=== PATIENT | female | born 1950 | race Caucasian/White ===

== ENCOUNTER 2020-05-08 13:41 | Emergency (ER) | payer OTHER, SELFPAY ==
[2020-05-08 13:47] VITALS: BP 123/70; PULSE 84; RESP 16; TEMP 36.9
--- NOTE | 2020-05-08 14:13 | ED.GENADUL_ITS ---
Discharge Plan Disposition Patient Disposition: HOME Condition: Stable Discharge Details Chief Complaint: Abd Prob Clinical Impression: Diverticulitis Primary Care Provider: Tucker Hurtado ED Provider: Zia Cummings Home Meds and New Rx's Prescriptions: New metronidazole [Flagyl] 500 mg tablet 500 mg PO QID 10 Days Qty: 40 RF: 0 sulfamethoxazole-trimethoprim [Bactrim DS] 800-160 mg tablet 1 tab PO BID 10 Days Qty: 20 RF: 0 Continued acyclovir 200 mg capsule 400 mg PO TID PRNRF: 0 vitamin B complex [B Complex-Vitamin B12] Tablet 1 tab PO DAILY RF: 0 garlic Tablet 300 mg PO DAILY RF: 0 ascorbate calcium (vitamin C) 500 mg tablet 500 mg PO DAILY RF: 0 cholecalciferol (vitamin D3) 50 mcg (2,000 unit) capsule 50 mcg PO DAILY RF: 0 Ultra CoQ10 75 mg capsule 75 mg PO DAILY RF: 0 methylprednisolone 4 mg Tablets,Dose Pack 4 mg PO DIRECTED RF: 0 ibuprofen [Advil] 200 mg Tablet 400 mg PO BID RF: 0 Discharge Instructions Instructions: Diverticulitis (ED) Additional Instructions: Bactrim and Flagyl as directed. Clear liquid diet, advance as tolerated. Please watch for new or worsening symptoms and return to the ER for any concerns. You were unable to provide a stool sample here in the ER, in order to have your stool still tested, you will need to bring a sample to the lab instead. I do recommend that you contact your primary care provider tomorrow for prompt outpatient reevaluation. Discharge Data Discharge Date/Time-TO BE ENTERED AT DEPARTURE: 05/08/20 18:00 Medical Decision Making <Yu Blas - Last Filed: 05/09/20 08:47> 69-year-old female presents to the ER with 2 days of increased mucousy stool production associated with fevers and dizziness. Patient states she has up to 15 bowel movements a day which she noticed greenish and mucousy. T-max is reported fever of 100.8. She has intermittent lower abdominal pain none on initial exam. She denies any vomiting, dysuria or urinary frequency. She has a past medical history of hyperlipidemia, osteoarthritis, surgical history includes appendectomy, cholecystectomy and . At this time work-up is largely within normal limits CBC shows no leukocytosis, sodium is 140, potassium is 3.5, initial troponin is within normal limits second troponin canceled. Lipase is 151. Culture is not indicated at this time. Stool samples ordered which patient has not provided as of yet. CT abdomen pelvis with IV contrast only ordered and is pending at this time. Care is to be handed off to oncoming provider CONNOR Mart pending CT abdomen pelvis results. If stool was not collected here in department we can send patient home with some outpatient stool collection items. Differential diagnosis includes, but not limited to bacterial infection, gastroenteritis, UTI, Diverticulitis. <CONNOR Muir - Last Filed: 05/08/20 17:00> I assumed care of this 69-year-old female from my colleague ELLY Blas at shift change. Patient has had lower abdominal pain, crampy in nature associated with green mucousy stools and low-grade fever over the past couple of days. Work-up initiated and currently CT imaging and stool sample pending. Upon my evaluation she is resting comfortably. She appears well, nontoxic. Head normocephalic. Heart, regular rate and rhythm. Lungs clear to auscultation. Abdominal examination, soft without rigidity, rebound or guarding. Bowel sounds are equal throughout. Mild lower abdominal diffuse discomfort, slightly worse in the left lower quadrant. Certainly nonsurgical in nature. Discussed her work-up thus far and our plan to obtain stool sample and awaiting CT results. Patient has no additional questions or concerns at this time. Patient still unable to provide stool sample. CT imaging read by virtual radiology as suspected colitis however diverticulosis of the sigmoid colon cannot be excluded. Clinical correlation is recommended. Given her loose green mucousy stool, low-grade fever, diffuse lower abdominal discomfort, slightly worse in the left lower quadrant, I do believe treating her for diverticulitis is certainly reasonable. Given her allergy to Cipro, will initiate therapy with Flagyl and Bactrim. Patient was unable to provide stool sample prior to discharge. She will be provided a kit to go home with to bring back to the lab however now with a diagnosis of colitis-diverticulitis on CT, stool sample likely less helpful. Patient has no additional questions or concerns at this time. We discussed clear liquid diet, advancing as tolerated, and the importance of contacting her primary care provider for prompt outpatient reevaluation. She was encouraged to return to the ER for new or worsening symptoms. HPI <Yu Blas - Last Filed: 05/09/20 08:47> General Mode of arrival: ambulatory . Date/Time Provider Initiated Documentation: 05/08/20 13:53 . Limitations to Documentation: no limitations . Information obtained by: patient . HPI Narrative: 69-year-old female presents to the ER with 2 days of increased mucousy stool production associated with fevers and dizziness. Patient states she has up to 15 bowel movements a day which she noticed greenish and mucousy. T-max is reported fever of 100.8. She has intermittent lower abdominal pain none on initial exam. She denies any vomiting, dysuria or urinary frequency. She has a past medical history of hyperlipidemia, osteoarthritis, surgical history includes appendectomy, cholecystectomy and . Related Data Home Medications Medication Instructions Recorded Confirmed acyclovir 200 mg capsule 400 mg PO TID PRN 02/26/20 05/08/20 ascorbate calcium (vitamin C) 500 500 mg PO DAILY 02/26/20 05/08/20 mg tablet cholecalciferol (vitamin D3) 50 50 mcg PO DAILY 02/26/20 05/08/20 mcg (2,000 unit) capsule coenzyme Q10 75 mg capsule 75 mg PO DAILY 02/26/20 05/08/20 garlic 300 mg PO DAILY 02/26/20 05/08/20 vitamin B complex 1 tab PO DAILY 02/26/20 05/08/20 ibuprofen [Advil] 400 mg PO BID 05/08/20 05/08/20 methylprednisolone 4 mg PO DIRECTED 05/08/20 05/08/20 metronidazole [Flagyl] 500 mg PO QID 10 Days #40 tab 05/08/20 sulfamethoxazole-trimethoprim 1 tab PO BID 10 Days #20 tab 05/08/20 [Bactrim DS] Previous Rx's Medication Instructions Recorded metronidazole [Flagyl] 500 mg PO QID 10 Days #40 tab 05/08/20 sulfamethoxazole-trimethoprim 1 tab PO BID 10 Days #20 tab 05/08/20 [Bactrim DS] Allergies Allergy/AdvReac Type Severity Reaction Status Date / Time ciprofloxacin [From Cipro] Allergy Intermediate vomiting Verified 05/08/20 13:54 bug bites AdvReac Intermediate swelling Uncoded 05/08/20 13:54 General Stated Complaint: Abd Prob ARELY: 3 Review of Systems <Yu Blas - Last Filed: 05/09/20 08:47> Narrative: Constitutional: Negative for weight loss, alert and oriented, well groomed, normal body habitus, appears comfortable. Positive fatigue. HEENT: Denies trauma, headaches, blurry vision, nasal discharge, sore throat, trouble swallowing. Chest: Denies chest pain, palpitations, irregular rhythm, hypertension. Respiratory: Denies Shortness of breath, cough, hemoptysis. GI: Denies , vomiting, diarrhea, constipation. Positive lower left and right lower quadrant abdominal pain intermittent, associated with increased bowel movements which she reports is mucousy and greenish. : Denies dysuria, hematuria, flank pain, rectal bleeding. Neuro: Denies dizziness, blurry vision, weakness, syncope, headache or facial numbness. Hematologic: Denies easy bruising, intolerance to heat or cold, hair loss. PFSH <Yu Blas - Last Filed: 05/09/20 08:47> Medical History Benign paroxysmal positional vertigo (Acute) Hyperlipidemia (Acute) Osteoarthritis (Chronic) Other cervical disc degeneration, unspecified cervical region (Acute) Prediabetes (Acute) Vitamin D deficiency (Acute) Surgical History History of appendectomy (Chronic) History of delivery (Chronic) History of knee surgery (Acute) History of laparoscopic cholecystectomy (Acute) Family History Mother Heart disease Father Prostate cancer Social History Smoking/Tobacco Use Status: Never Alcohol Intake: current Alcohol Intake frequency: 0-2 drinks per day Alcohol type: wine Drug use: Never Household members: spouse Number of Children: 1 number of grandchildren: 2 Communication Needs: Language Barriers current occupation: Retired from [employer] Pets and animals: No Current gender identity: female What is your relationship status?: How often do you attend tenriism or orthodoxy services?: 4 or more times per year Do you belong to any clubs or organized social groups?: no Panel score (0-1 are the most socially isolated patients): 2 What type of physical activity do you participate in: none Seatbelt use: always Do you feel safe at home: Yes Do you feel safe in your relationship?: Yes Victim of physical abuse: No Victim of emotional abuse: No Victim of sexual abuse: No Exam <Yu Puri Last Filed: 05/09/20 08:47> Narrative Exam Narrative: Constitutional: Alert and oriented x3. Appears stated age. Normal body habitus. Head: Normocephalic, no trauma. Eyes: Pupils PERRLA, Red reflex noted, EOM's intact. Eyelids symmetrical without lesions, discharge, or swelling. ENT: Bilateral TM's WNL, External ear normal to inspection, no mastoid TTP, swelling, or erythema, Nasal turbinates WNL, no nasal discharge. Normal dentition, Posterior pharynx WNL, no exudate. Chest: RRR, Normal S1, S2, distal pulses intact. Resp: Lungs clear to auscultation bilaterally, no wheezes, rales, or rhonchi. Abdomen: Soft, normoactive bowel sounds auscultated, right lower quadrant left lower quadrant tenderness to palpation. No guarding. Musculoskeletal: Normal gait, 5/5 strength to all four extremities. Skin: No suspicious rashes or lesions. Capillary refill less than 2 sec. Neurologic: Cranial nerves II-XII intact. Alert and oriented x 3. DTR's intact. Hematologic/Lymphatic: No ecchymosis, no lymphadenopathy. Course <Yu Blas - Last Filed: 05/09/20 08:47> Vital Signs Vital signs: Vital Signs Temperature 36.9 C 05/08/20 13:47 Pulse 84 05/08/20 13:47 Respiratory Rate 16 05/08/20 13:47 Blood Pressure 123/70 05/08/20 13:47 Temperature 36.9 C 05/08/20 13:47 Temperature Source Skin 05/08/20 13:47 Pulse 84 05/08/20 13:47 Respiratory Rate 16 05/08/20 13:47 Respiratory Effort 05/08/20 13:58 Blood Pressure 123/70 05/08/20 13:47 Blood Pressure Position Sitting 05/08/20 13:47 Oxygen Delivery Method Room Air 05/08/20 13:47 Oxygen Flow Rate 0 05/08/20 13:47 Pain Level 5 05/08/20 13:47 Comment 05/08/20 13:47 Sign Out <Yu Blas - Last Filed: 05/09/20 08:47> Sign Out Data: Sign Out Comment: Pending CT abd pelvis result and stool culture collection. May send stool collection kit with patient as outpatient Last updated by Yu Blas at 05/08/20 16:16
[2020-05-08 14:18] LABS: Bilirubin Negative (Negative); Blood Negative (Negative); Clarity Clear (Clear); Glucose Negative (Negative); Ketones Negative (Negative); Leukocyte Esterase Negative (Negative); Nitrite Negative (Negative); Specific Gravity >= 1.030 (1.005-1.025); Urobilinogen 0.2 EU/dL (Up TO 0.2)
[2020-05-08 14:26] LABS: Epithelial Cells Moderate HPF (Negative); RBC Negative HPF (0-2); WBC 0-2 HPF (0-5)
[2020-05-08 14:27] LABS: Bacteria Negative HPF (Negative); C & S Indicated? No; Casts Negative LPF (Negative); Crystals Negative HPF (Negative); Mucus Trace (Negative)
[2020-05-08 14:38] LABS: Abs Immature Grans 0.05 10^3/uL (0.0-0.06); Absolute Basophil Count 0.03 10^3/uL (0.0-0.2); Absolute Eosinophil Count 0.12 10^3/uL (0.0-0.7); Absolute Lymphocyte Count 1.31 10^3/uL (1.2-3.4); Absolute Monocyte Count 1.03 10^3/uL (0.1-0.8); Absolute Neutrophil Count 7.98 10^3/uL (1.2-6.7); Basophils % 0.3; Eosinophils % 1.1; HCT 42.3 % (36.0-46.0); Immature Grans % 0.5; Lymphocytes % 12.5; MCH 29.9 pg (27.0-33.0); MCHC 33.1 % (32.0-36.0); MCV 90.4 fL (80-95); MPV 9.7 fL (8.0-11.0); Monocytes % 9.8; Neutrophils % 75.8; Nucleated RBC 0 %; Platelet Count 326 10^3/uL (130-400); RBC 4.68 10^6/uL (3.93-5.22); RDW 12.8 % (11.7-14.6); RDW-SD 41.8 fL; WBC 10.52 10^3/uL (4.4-10.8)
[2020-05-08] MEDS: Normal Saline Flush 10 ML SYR IVP (14:40)
[2020-05-08] MEDS: Normal Saline 500 ML IV (14:40)
[2020-05-08 14:59] LABS: ALT 38 U/L (14-59); AST 17 U/L (15-37); Alkaline Phosphatase 96 U/L (46-116); Anion Gap 11.3 mmol/L (3-11); BUN 13 mg/dL (7-18); Bilirubin, Total 0.8 mg/dL (0.2-1.0); CO2 24.7 mmol/L (21.0-32.0); CREATININE 0.88 mg/dL (0.55-1.02); Calcium 9.5 mg/dL (8.5-10.1); Chloride 104 mmol/L (98-107); Glucose 107 mg/dL (74-106); Magnesium 2.1 mg/dL (1.8-2.4); Potassium 3.5 mmol/L (3.5-5.1); Sodium 140 mmol/L (136-145); Total Protein 8.1 g/dL (6.4-8.2)
[2020-05-08 15:00] LABS: Troponin I < 0.05 ng/mL (<0.06)
--- NOTE | 2020-05-08 15:00 | DI.CT_ITS ---
EXAM: CT ABDOMEN PELVIS W CLINICAL HISTORY: Bilateral lower abdominal pain, fever TECHNIQUE: Imaging Protocol: Axial computed tomography images with coronal and sagittal reformatted images were created and reviewed CONTRAST MATERIAL: Intravenous: Omnipaque 350 Contrast volume:100 mL Oral: No COMPARISON: No exams were available for comparison FINDINGS: ABDOMEN: Lung Bases: Mild dependent atelectasis. Calcified granuloma in the right lower lobe. Liver: The dome of the liver is not included. The liver is unremarkable. No measurable mass. Portal, Superior Mesenteric, and Splenic Veins: Unremarkable. Gallbladder and Biliary Tract: Status post cholecystectomy. No significant biliary ductal dilatation . Pancreas: Normal density, no abnormal calcifications or inflammatory process. Spleen: Normal. Adrenals: No masses seen. Kidneys: Normal size, contour and axis. No radiodense stones or obstructive uropathy. No masses seen. Abdominal Aorta: Abdominal portion non-dilated. Bowel: There is colonic diverticulosis. There is bowel wall thickening seen in the distal transverse colon, sigmoid colon and descending colon. There is surrounding inflammation in the sigmoid colon. Findings are suspicious for colitis. Concomitant diverticulitis cannot be excluded. No evidence of bowel obstruction. No evidence of acute appendicitis. Peritoneal Cavity: No ascites, collection or mesenteric inflammatory response. No free air. Lymph Nodes: Within normal limits. Bones: Degenerative changes. Soft Tissues: Unremarkable. PELVIS: Bladder: Symmetric distention, no gross wall thickening. Reproductive Organs: Unremarkable as visualized. Lymph Nodes: Within normal limits. Bones: Degenerative changes. IMPRESSION: Findings suspicious for inflammatory or infectious colitis. Concomitant diverticulitis of the sigmoi d colon cannot be excluded. RADIATION DOSE DELIVERED: 664.38mGy.cm Total DLP DATA REPOSITORY: All CT scans at this facility are submitted to the National Radiology Data Registry (NRDR) Dose Index Registry (DIR) with the [employer] (ACR). RADIATION OPTIMIZATION: All CT scans at this facility use at least one of these dose optimization te chniques: automated exposure control; mA and/or kV adjustment per patient size (includes targeted exa ms where dose is matched to clinical indication); or iterative reconstruction.
[2020-05-08 15:07] LABS: Lipase 151 U/L (73-393)
[2020-05-08 15:09] VITALS: BP 113/70; PULSE 76; RESP 18; O2SAT 98
[2020-05-08] MEDS: Normal Saline - Diluent 50 ML VIAL IV (15:50)
[2020-05-08] MEDS: Omnipaque 350 MG/ML 100 ML BTL IJ (15:51)
--- NOTE | 2020-05-08 16:28 | DI.VRAD_ITS ---
PROCEDURE INFORMATION: Exam: CT Abdomen And Pelvis With Contrast Exam date and time: 05/08/2020 3:56 PM Age: 69 years old Clinical indication: Localized; Prior surgery; Surgery date: 6+ months; Surgery type: Appendectomy and gallbladder removed years ago. ; Patient HX: Lower abdominal pain x3 days. Worsening pain. TECHNIQUE: Imaging protocol: Computed tomography of the abdomen and pelvis with intravenous contrast. Radiation optimization: All CT scans at this facility use at least one of these dose optimization techniques: automated exposure control; mA and/or kV adjustment per patient size (includes targeted exams where dose is matched to clinical indication); or iterative reconstruction. Contrast material: OMNIPAQUE 350; Contrast volume: 100 ml; Contrast route: INTRAVENOUS (IV); COMPARISON: No relevant prior studies available. FINDINGS: Lungs: There are dependent atelectatic changes within the visualized lung bases. There is a small calcified granuloma within the right lower lobe. Heart: The visualized portions the heart and pericardium are unremarkable. Liver: The visualized portions of the liver appear unremarkable. Gallbladder and bile ducts: The patient is status post cholecystectomy. Pancreas: The pancreas is within normal limits. Spleen: The spleen is unremarkable. Adrenals: The adrenal glands are within normal limits. Kidneys and ureters: The kidneys are within normal limits. Stomach and bowel: There is mucosal thickening of the descending and sigmoid colons. This extends to the rectum. This is suspicious for colitis. There is slight pericolonic inflammation the mesenteric fat.Clinical correlation is recommended. There are diverticuli at the level of the sigmoid colon. Sigmoid diverticulitis is not totally excluded. Appendix: The patient is status post appendectomy. Intraperitoneal space: See Stomach and bowel finding. Vasculature: Unremarkable. No abdominal aortic aneurysm. Lymph nodes: No enlarged lymph nodes. Bladder: The urinary bladder is unremarkable. Reproductive: The uterus and ovaries are within normal limits for patient of this age. The Bones/joints: There are degenerative changes of the thoracic and lumbar spines. There is degenerative disc disease at multiple levels. Soft tissues: Unremarkable. IMPRESSION: Suspect colitis as above. Concomitant diverticulitis of the sigmoid colon is not excluded. Clinical correlation is recommended. Osseous findings as above. Status post cholecystectomy. Old granulomatous disease as above. Status post appendectomy. Dictated and Authenticated by: Yogesh Michelle MD. Ordering:KENNETH Nicholas MD
[2020-05-08 17:59] VITALS: BP 111/59; PULSE 74; RESP 16; TEMP 36.9; O2SAT 99
== END 2020-05-08 18:00 | disposition home or self-care (01) ==
PROVIDERS: Registered Nurse Emergency; Emergency Provider Physician Assistant; PCP Family Medicine
DX: K57.92 Diverticulitis of intestine, part unspecified, without perforation or abscess without bleeding (principal); R50.9 Fever, unspecified; R42 Dizziness and giddiness
CPT/HCPCS: 36415; 80053; 83690; 87040; 96360; 99285; 74177; 81003; 81015; 83735; 84484; 85025; 99284; J3490

== ENCOUNTER 2020-05-10 09:55 | Outpatient (REF) | payer OTHER, SELFPAY ==
[2020-05-11 11:31] LABS: Campylobacter PCR Negative (Negative); Salmonella PCR Negative (Negative); Shiga Toxin PCR Negative (Negative); Shigella/Enteroinvasive Ecoli Negative (Negative)
== END 2020-05-10 10:15 ==
LOC: LBN 09:55
PROVIDERS: PCP Family Medicine; Visit Provider Physician Assistant
DX: K57.32 Diverticulitis of large intestine without perforation or abscess without bleeding (principal)
CPT/HCPCS: 87505; 82272

== ENCOUNTER 2020-05-25 23:55 | Observation (INO) | payer OTHER, SELFPAY ==
[2020-05-26] VITALS (8 sets, daily range): BP systolic 104–122; BP diastolic 62–69; PULSE 78–108; RESP 14–18; TEMP 36.3–38.2; O2SAT 96–100
--- NOTE | 2020-05-26 00:07 | ED.GENADUL_ITS ---
Discharge Plan Disposition Patient Disposition: [facility] INPATIENT Condition: Fair Discharge Details Chief Complaint: Abd Prob Clinical Impression: Colitis Primary Care Provider: Tucker Hurtado ED Provider: Papa Reno [place] Meds and New Rx's Prescriptions: No Action vitamin B complex [B Complex-Vitamin B12] Tablet 1 tab PO DAILY RF: 0 garlic Tablet 300 mg PO DAILY RF: 0 ascorbate calcium (vitamin C) 500 mg tablet 500 mg PO DAILY RF: 0 cholecalciferol (vitamin D3) 50 mcg (2,000 unit) capsule 50 mcg PO DAILY RF: 0 Ultra CoQ10 75 mg capsule 75 mg PO DAILY RF: 0 ondansetron HCl [Zofran] 4 mg tablet 4 mg PO Q6H PRN (Reason: nausea and vomiting) Qty: 30 RF: 0 Medical Decision Making Patient with recurrent and worse abdominal pain. Had finished Flagyl and Ba ctrim for diverticulitis. Symptoms had resolved. Denies liquidy stool but does have soft stool, not formed. Febrile today as well as febrile here. Does not look toxic. IV established and fluids started. Ketorolac given for pain. Labs sent. Repeat CT scan ordered. Lab values significant for markedly elevated white count of 20,000. Chemistries with hypokalemia. Otherwise unremarkable. Liver function normal. Lipase normal. CT scan now shows diffuse colitis involving entire colon. Patient does report less pain but still has pain. On further questioning she reports that previous symptoms started after finishing antibiotics for root canal. At this point I would suspect C. difficile colitis. Will send stool for studies when she is able to provide one. Given her white count and her worsening CT scan as well as her fever recommend admission. Case discussed with hospitalist who is in agreement. Oral vancomycin will be started. Medical Records Medical records reviewed: Yes I reviewed the patient's medical records. Lab Data Lab results reviewed: Yes I reviewed the patient's lab results. HPI General Mode of arrival: ambulatory . Date/Time Provider Initiated Documentation: 05/25/20 23:57 . Limitations to Documentation: no limitations . Information obtained by: patient, RN notes reviewed and old records reviewed . HPI Narrative: Patient presents to ED with recurrent lower abdominal pain onset in the morning. Worsening over the course of the day. Fever at home. No nausea or vomiting. Soft stool but denied liquidy diarrhea. Had been here on the with similar presentation although not as severe. CT scan at that time suggestive of distal colitis/sigmoid diverticulitis. She has been treated with Flagyl and Bactrim as outpatient. She was seen by primary care and follow-up on the . She was doing better with no pain until today. The antibiotics are complete. Related Data Home Medications Medication Instructions Recorded Confirmed ascorbate calcium (vitamin C) 500 500 mg PO DAILY 02/26/20 05/14/20 mg tablet cholecalciferol (vitamin D3) 50 50 mcg PO DAILY 02/26/20 05/14/20 mcg (2,000 unit) capsule coenzyme Q10 75 mg capsule 75 mg PO DAILY 02/26/20 05/14/20 garlic 300 mg PO DAILY 02/26/20 05/14/20 vitamin B complex 1 tab PO DAILY 02/26/20 05/14/20 ondansetron HCl 4 mg tablet 4 mg PO Q6H PRN #30 tab 05/14/20 05/14/20 Previous Rx's Medication Instructions Recorded ondansetron HCl 4 mg tablet 4 mg PO Q6H PRN #30 tab 05/14/20 Allergies Allergy/AdvReac Type Severity Reaction Status Date / Time ciprofloxacin [From Cipro] Allergy Intermediate vomiting Verified 05/08/20 13:54 bug bites AdvReac Intermediate swelling Uncoded 05/08/20 13:54 General ARELY: 3 Review of Systems Narrative: 07/10 Review of Systems completed and is negative except as stated above in HPI (Systems reviewed: Const, Eyes, ENT, Resp, CV, GI, , MSK, Skin, Neuro) PFSH Medical History Benign paroxysmal positional vertigo (Acute) Hyperlipidemia (Acute) Osteoarthritis (Chronic) Other cervical disc degeneration, unspecified cervical region (Acute) Prediabetes (Acute) Vitamin D deficiency (Acute) Surgical History History of appendectomy (Chronic) History of delivery (Chronic) History of knee surgery (Acute) History of laparoscopic cholecystectomy (Acute) Family History Mother Heart disease Father Prostate cancer Social History Smoking/Tobacco Use Status: Never Alcohol Intake: current Alcohol Intake frequency: 0-2 drinks per day Alcohol type: wine Drug use: Never Household members: spouse Number of Children: 1 number of grandchildren: 2 Communication Needs: Language Barriers current occupation: Retired from [employer] Pets and animals: No Current gender identity: female What is your relationship status?: How often do you attend scientologist or latter day services?: 4 or more times per year Do you belong to any clubs or organized social groups?: no Panel score (0-1 are the most socially isolated patients): 2 What type of physical activity do you participate in: none Seatbelt use: always Do you feel safe at home: Yes Do you feel safe in your relationship?: Yes Victim of physical abuse: No Victim of emotional abuse: No Victim of sexual abuse: No Exam Narrative Exam Narrative: Vitals: Febrile to 100.8 orally. Mild tachycardia. Normal blood pressure and room air pulse ox. Const: WDWN female in NAD. HEENT: NC/AT. Normal facial exam. Eyes: Normal conjunctiva and sclera. Neck: Supple. Trachea midline. Lungs: Normal respiratory effort. Lungs are clear. Cor: RRR without murmur/gallop. Good radial pulses. GI: Soft and ND. Some tenderness in LLQ. No guarding or rebound. Neuro: A+O x 3. Normal speech, mentation, gait. Cranial nerves II - XII grossly intact. No gross motor or sensory deficit. Ext: No C/C/E. Skin: Warm and dry without rash.
--- NOTE | 2020-05-26 00:15 | DI.CT_ITS ---
EXAM: CT ABDOMEN PELVIS W CLINICAL HISTORY: recurrent worse LLQ pain TECHNIQUE: Imaging Protocol: Axial computed tomography images with coronal and sagittal reformatted images were created and reviewed CONTRAST MATERIAL: Intravenous: Omnipaque 350 Contrast volume:77 mL Oral: No COMPARISON: CT CT ABDOMEN PELVIS W from 05/08/2020 FINDINGS: ABDOMEN: Lung Bases: Dependent atelectasis. Calcified granuloma in the right lower lobe. Liver: Normal density. No measurable mass. Portal, Superior Mesenteric, and Splenic Veins: Unremarkable. Gallbladder and Biliary Tract: Status post cholecystectomy. Pancreas: Normal density, no abnormal calcifications or inflammatory process. Spleen: Normal. Adrenals: No masses seen. Kidneys: Normal size, contour and axis. No radiodense stones or obstructive uropathy. No masses seen. Abdominal Aorta: Abdominal portion non-dilated. Bowel: There is diffuse wall thickening of the colon with areas of surrounding inflammatory change.. There are few scattered diverticula in the sigmoid colon. No evidence of acute appendicitis. No ev idence of bowel obstruction. Peritoneal Cavity: No ascites, collection or mesenteric inflammatory response. Lymph Nodes: Within normal limits. Bones: Degenerative changes. Soft Tissues: Unremarkable. PELVIS: Bladder: Symmetric distention, no gross wall thickening. Reproductive Organs: Unremarkable as visualized. Lymph Nodes: Within normal limits. Bones: Degenerative changes. IMPRESSION: Nonspecific colitis. No free air or abscess. No evidence of obstruction. RADIATION DOSE DELIVERED: 644.2mGy.cm Total DLP DATA REPOSITORY: All CT scans at this facility are submitted to the National Radiology Data Registry (NRDR) Dose Index Registry (DIR) with the [employer] (ACR). RADIATION OPTIMIZATION: All CT scans at this facility use at least one of these dose optimization te chniques: automated exposure control; mA and/or kV adjustment per patient size (includes targeted exa ms where dose is matched to clinical indication); or iterative reconstruction.
[2020-05-26] MEDS: Lactated Ringers 1,000 ML 1000 ML IV (00:30)
[2020-05-26] MEDS: Ketorolac 15 MG/ML VIAL IVP (00:35)
[2020-05-26 00:38] LABS: Abs Immature Grans 0.13 10^3/uL (0.0-0.06); Absolute Basophil Count 0.04 10^3/uL (0.0-0.2); Absolute Eosinophil Count 0.02 10^3/uL (0.0-0.7); Absolute Lymphocyte Count 0.64 10^3/uL (1.2-3.4); Absolute Neutrophil Count 17.82 10^3/uL (1.2-6.7); Basophils % 0.2; Eosinophils % 0.1; HCT 40.7 % (36.0-46.0); HGB 13.7 g/dL (11.2-15.7); Immature Grans % 0.6; Lymphocytes % 3.2; MCH 30.1 pg (27.0-33.0); MCHC 33.7 % (32.0-36.0); MCV 89.5 fL (80-95); MPV 9.7 fL (8.0-11.0); Monocytes % 7.3; Neutrophils % 88.6; Nucleated RBC 0 %; Platelet Count 295 10^3/uL (130-400); RBC 4.55 10^6/uL (3.93-5.22); RDW 13.1 % (11.7-14.6); RDW-SD 42.7 fL; WBC 20.11 10^3/uL (4.4-10.8)
[2020-05-26 00:42] LABS: Absolute Monocyte Count 1.47 10^3/uL (0.1-0.8)
[2020-05-26 00:56] LABS: ALT 40 U/L (14-59); AST 17 U/L (15-37); Albumin 3.4 g/dL (3.4-5.0); Alkaline Phosphatase 67 U/L (46-116); Anion Gap 12.5 mmol/L (3-11); BUN 9 mg/dL (7-18); Bilirubin, Total 0.9 mg/dL (0.2-1.0); CO2 24.5 mmol/L (21.0-32.0); CREATININE 1.09 mg/dL (0.55-1.02); Calcium 8.7 mg/dL (8.5-10.1); Chloride 102 mmol/L (98-107); Estimated GFR 49.48 (mL/min/1.73m2); Glucose 149 mg/dL (74-106); Lipase 88 U/L (73-393); Potassium 3.3 mmol/L (3.5-5.1); Sodium 139 mmol/L (136-145); Total Protein 6.9 g/dL (6.4-8.2)
[2020-05-26 01:59] LABS: Bilirubin Negative (Negative); Blood Trace-intact (Negative); Clarity Clear (Clear); Glucose Negative (Negative); Ketones Negative (Negative); Leukocyte Esterase Negative (Negative); Nitrite Negative (Negative); Urobilinogen 0.2 EU/dL (Up TO 0.2); pH 6.5 (5-8)
--- NOTE | 2020-05-26 02:06 | DI.VRAD_ITS ---
PROCEDURE INFORMATION: Exam: CT Abdomen And Pelvis With Contrast Exam date and time: 05/26/2020 12:27 AM Age: 69 years old Clinical indication: Abdominal pain; Localized; Left lower quadrant (llq); Patient HX: Recurrent worse llq pain TECHNIQUE: Imaging protocol: Computed tomography of the abdomen and pelvis with intravenous contrast. COMPARISON: CT ABDOMEN PELVIS W 05/08/2020 3:44 PM FINDINGS: Lungs: Subpleural atelectasis of the dependent portions of the lungs. Pulmonary parenchymal calcification consistent with remote granulomatous organism exposure. Liver: Diffuse decrease in hepatic parenchymal density, consistent with fatty infiltration. Gallbladder and bile ducts: Gallbladder surgically absent. Pancreas: Normal. No ductal dilation. Spleen: Normal. No splenomegaly. Adrenals: Normal. No mass. Kidneys and ureters: Normal. No hydronephrosis. Stomach and bowel: Wall thickening with surrounding inflammatory change throughout the colon consistent with a nonspecific colitis, overall slightly worse. Colonic diverticula present. No evidence of intestinal perforation or obstruction. Appendix: No evidence of appendicitis. Intraperitoneal space: Unremarkable. No free air. No significant fluid collection. Vasculature: Unremarkable. No abdominal aortic aneurysm. Lymph nodes: Unremarkable. No enlarged lymph nodes. Bladder: Unremarkable as visualized. Reproductive: Unremarkable as visualized. Bones/joints: Unremarkable. No acute fracture. Soft tissues: Unremarkable. IMPRESSION: Wall thickening with surrounding inflammatory change throughout the colon consistent with a nonspecific colitis, overall slightly worse. Dictated and Authenticated by: Otf Castillo MD. Ordering:JORDIN Elam MD
[2020-05-26 02:21] LABS: Bacteria Rare HPF (Negative); C & S Indicated? No; Casts Negative LPF (Negative); Crystals Negative HPF (Negative); Epithelial Cells Negative HPF (Negative); Mucus Negative (Negative); WBC Negative HPF (0-5)
[2020-05-26] MEDS: Lactated Ringers 1,000 ML 125 ML IV ×3 (03:06→19:45)
--- NOTE | 2020-05-26 03:07 | W.PM.HP.N ---
Date of service: 05/26/20 Time of Service: 07:23 Assessment and Plan Assessment and plan (1) C. difficile colitis: Status: Acute Assessment and plan: The patient's diffuse colitis on CT scan as well as her elevated white count antibiotic use all suggest C. difficile colitis. Is unclear if this was the primary infectious agent at her previous diagnosis and was incompletely treated with metronidazole. Either way she qualifies as severe disease based on her white blood cell count and should be treated with oral vancomycin. We will continue to monitor, if she worsens we will consider adding IV metronidazole and requesting a surgical consult. If C. difficile negative, it would be worth doing a full parasitic panel given travel to [facility]. Colonoscopy may also be considered at that point to assess for entities such as ulcerative colitis. She was dehydrated at admission, and is been hydrated in the emergency room. Continue on maintenance fluids and follow renal function. (2) Osteoarthritis: Status: Chronic Assessment and plan: I would avoid further NSAIDs and treat with acetaminophen as needed (3) Hypokalemia: Status: Acute Assessment and plan: Secondary to vomiting and diarrhea. Will replace IV to start until she is able to tolerate oral therapy. Check magnesium and replace this as well if needed. (4) DVT prophylaxis: Status: Acute Assessment and plan: Low molecular weight heparin (5) Discharge planning issues: Status: Acute Assessment and plan: Patient will be observed overnight to rehydrate and treat her nausea, with confirmation of C. difficile pending. She may be discharged when she is tolerating oral therapy once we have a definitive diagnosis. History of Present Illness History of Present Illness Chief Complaint: Diarrhea and vomiting Narrative: 69-year-old healthy female who was diagnosed and treated for diverticulitis on May 08 in the [facility] emergency room with a 10-day course of Bactrim and metronidazole presented again to the emergency room today with ongoing diarrhea and worse abdominal pain and vomiting. On May 08 the patient presented with 2 days of frequent mucousy stools along with dizziness and fever to 100.8. A CT scan was done which showed colitis and diverticulitis. Stool studies including C. difficile screen were ordered, but the patient was not able to give a stool sample. She was sent home on antibiotics as above with Bactrim rather than ciprofloxacin due to her allergy. Studies to come back later showing negative Hemoccult and negative stool pathogen PCR. Symptoms did improve on the Bactrim and metronidazole, though her stools never went totally back to normal. She was better for 4 to 5 days off of antibiotics, but the day of admission had acutely worsening of her abdominal pain as well as increase in her stooling. Stools are up to 12 times a day. There is small, and not associated with pain. She does feel little better after bowel movement. Stools have been formed throughout this illness even though they were quite frequent, but they are more watery now. Current pain is colicky, becoming severe in waves, crampy. Patient states she had dental work done in March, and she did show me her prescription for clindamycin taken during that time. She states her symptoms started not long after the antibiotic course. Of note, she also traveled to [facility] at the end of October into early November just before the COVID shutdown. Review of Systems All systems reviewed & are unremarkable except as noted in HPI and below Neurologic Comments: Some tingling in the toes that is chronic [facility] Medical History Benign paroxysmal positional vertigo (Acute) Hyperlipidemia (Acute) Osteoarthritis (Chronic) Other cervical disc degeneration, unspecified cervical region (Acute) Prediabetes (Acute) Vitamin D deficiency (Acute) Surgical History History of appendectomy (Chronic) History of delivery (Chronic) History of knee surgery (Acute) History of laparoscopic cholecystectomy (Acute) Family History Mother Heart disease Father Prostate cancer Social History Smoking/Tobacco Use Status: Never Alcohol Intake: current Alcohol Intake frequency: 0-2 drinks per day Alcohol type: wine Drug use: Never Household members: spouse Number of Children: 1 number of grandchildren: 2 Communication Needs: Language Barriers current occupation: Retired from [employer]) Pets and animals: No Current gender identity: female What is your relationship status?: How often do you attend pentecostal or restoration services?: 4 or more times per year Do you belong to any clubs or organized social groups?: no Panel score (0-1 are the most socially isolated patients): 2 What type of physical activity do you participate in: none Seatbelt use: always Do you feel safe at home: Yes Do you feel safe in your relationship?: Yes Victim of physical abuse: No Victim of emotional abuse: No Victim of sexual abuse: No Meds Home Medications and Allergies Home Medications Medication Instructions Recorded Confirmed Type ascorbate calcium (vitamin C) 500 500 mg PO DAILY 02/26/20 05/14/20 History mg tablet cholecalciferol (vitamin D3) 50 50 mcg PO DAILY 02/26/20 05/14/20 History mcg (2,000 unit) capsule coenzyme Q10 75 mg capsule 75 mg PO DAILY 02/26/20 05/14/20 History garlic 300 mg PO DAILY 02/26/20 05/14/20 History vitamin B complex 1 tab PO DAILY 02/26/20 05/14/20 History ondansetron HCl 4 mg tablet 4 mg PO Q6H PRN #30 tab 05/14/20 05/14/20 Rx Allergies Allergy/AdvReac Type Severity Reaction Status Date / Time ciprofloxacin [From Cipro] Allergy Intermediate vomiting Verified 05/08/20 13:54 bug bites AdvReac Intermediate swelling Uncoded 05/08/20 13:54 Exam Narrative Exam Narrative: General: Alert and oriented, lying comfortably in bed, no acute distress. Pleasant and coherent. HEENT: Atraumatic. Pupils equal round reactive to light with extraocular motion intact. Conjunctive are clear with no icterus. Moist mucous membranes with no oropharyngeal lesions. Neck is supple with no lymphadenopathy or other masses. Lungs: Auscultation bilaterally with normal effort Cardiovascular: Regular rate and rhythm no murmurs gallops or rubs Abdomen: Hypoactive bowel sounds, soft, mild to moderate tenderness diffusely more in the lower abdomen. No guarding or rebound. Extremities: No cyanosis, clubbing, or edema. Nontender palpation of the legs. MSK: No joint redness or swelling skin: No rashes, Significant bruises, or other skin lesions. Neurologic: Cranial nerves grossly intact. Normal speech and coordination. Normal movement 4 extremities. No tremor. Psychiatric: Normal mood and affect. Normal thought process. Results CT abdomen pelvis with contrast: Subpleural atelectasis dependent portion of the lungs. Opacification consistent with remote granulomatous organism exposure. No evidence of appendicitis. Wall thickening surrounded by inflammatory changes throughout the colon consistent with nonspecific colitis, slightly worse than previous study on May 09. Labs Result diagrams: 05/26/20 06:50 05/26/20 06:50 Labs: Laboratory Results - last 24 hr 05/26/20 05/26/20 05/26/20 00:20 00:20 01:47 WBC 20.11 H RBC 4.55 Hgb 13.7 Hct 40.7 MCV 89.5 MCH 30.1 MCHC 33.7 RDW 13.1 Plt Count 295 MPV 9.7 Immature Gran % 0.6 Neutrophils % 88.6 Lymphocytes % 3.2 Monocytes % 7.3 Eosinophils % 0.1 Basophils % 0.2 Nucleated RBC % 0 Absolute Neutrophils 17.82 H Absolute Lymphocytes 0.64 L Absolute Monocytes 1.47 H Absolute Eosinophils 0.02 Absolute Basophils 0.04 Sodium 139 Potassium 3.3 L Chloride 102 Carbon Dioxide 24.5 Anion Gap 12.5 H BUN 9 Creatinine 1.09 H Estimated GFR/1.73 m2 49.48 Glucose 149 H Calcium 8.7 Total Bilirubin 0.9 AST 17 ALT 40 Alkaline Phosphatase 67 Total Protein 6.9 Albumin 3.4 Lipase 88 Urine Color Yellow Urine Clarity Clear Urine pH 6.5 Ur Specific [place] 1.010 Urine Protein Negative Urine Ketones Negative Urine Blood Trace-intact H Urine Nitrite Negative Urine Bilirubin Negative Urine Urobilinogen 0.2 Ur Leukocyte Esterase Negative Urine RBC 3-5 H Urine WBC Negative Ur Epithelial Cells Negative Urine Crystals Negative Urine Bacteria Rare Urine Casts Negative Urine Mucus Negative Ur Culture Indicated? No Urine Glucose Negative Last Vital Signs Temp 38.2 C H 05/26/20 00:24 Pulse 98 H 05/26/20 00:09 Resp 18 05/26/20 00:09 BP 122/68 05/26/20 00:09 Pulse Ox 98 05/26/20 00:09 COVID-19 Screening Have you,or household,traveled outside [place] in last 14 days?: No Had IN PERSON contact w/suspected or confirmed C-19 person: No
[2020-05-26] MEDS: Vancomycin 125 MG CAP PO ×4 (05:26→23:42)
[2020-05-26] MEDS: Acetaminophen 325 MG TAB 650 MG PO ×3 (05:26→21:58)
[2020-05-26 07:08] LABS: Abs Immature Grans 0.06 10^3/uL (0.0-0.06); Absolute Basophil Count 0.03 10^3/uL (0.0-0.2); Absolute Eosinophil Count 0.02 10^3/uL (0.0-0.7); Basophils % 0.2; Eosinophils % 0.1; HCT 40.4 % (36.0-46.0); HGB 13.6 g/dL (11.2-15.7); Immature Grans % 0.4; Lymphocytes % 5.6; MCHC 33.7 % (32.0-36.0); MCV 89.2 fL (80-95); MPV 9.7 fL (8.0-11.0); Monocytes % 5.4; Neutrophils % 88.3; Nucleated RBC 0 %; Platelet Count 300 10^3/uL (130-400); RBC 4.53 10^6/uL (3.93-5.22); RDW 13.2 % (11.7-14.6); RDW-SD 43.1 fL
[2020-05-26 07:15] LABS: Absolute Lymphocyte Count 0.85 10^3/uL (1.2-3.4); Absolute Monocyte Count 0.82 10^3/uL (0.1-0.8); Absolute Neutrophil Count 13.33 10^3/uL (1.2-6.7)
[2020-05-26 07:24] LABS: Anion Gap 8.8 mmol/L (3-11); BUN 9 mg/dL (7-18); CO2 26.2 mmol/L (21.0-32.0); CREATININE 0.95 mg/dL (0.55-1.02); Calcium 8.5 mg/dL (8.5-10.1); Chloride 106 mmol/L (98-107); Estimated GFR 57.99 (mL/min/1.73m2); Glucose 146 mg/dL (74-106); Potassium 3.3 mmol/L (3.5-5.1); Sodium 141 mmol/L (136-145)
[2020-05-26] MEDS: Enoxaparin 40 MG/0.4 ML SYR SC (07:32)
[2020-05-26] MEDS: POTASSIUM CHLORIDE 20 MEQ/100 ML BAG 50 MEQ IVPB (07:34)
--- NOTE | 2020-05-26 08:37 | PDOC.CMIN ---
- If Service Date Differs Date of service: 05/26/20 Time of Service: 08:37 Care Management Initial Assess REASON FOR HOSPITALIZATION:: Colitis. PAST MEDICAL HISTORY/PAST SURGICAL HISTORY:: Medical History: Benign paroxysmal positional vertigo, Hyperlipidemia, Osteoarthritis, Other cervical disc degeneration, unspecified cervical region,. Prediabetes, and Vitamin D deficiency. Surgical History: History of appendectomy, History of delivery,. History of knee surgery, and History of laparoscopic cholecystectomy. ADVANCE DIRECTIVES:: None on file. Has patient been provided with info about the portal/API?: Yes CODE STATUS:: Full Code INSURANCE COVERAGE / FINANCIAL ISSUES:: [facility]. PRIMARY CARE PHYSICIAN:: Tucker Hurtado DO. POTENTIAL DISCHARGE NEEDS:: Follow up appointments with PCP and rn surgical. PATIENT/FAMILY EDUCATION NEEDS:: Discharge instructions, limitations and follow up plan of care, including Ask Me Three and self management. ANTICIPATED BARRIERS TO DISCHARGE:: None anticipated at this time.
--- NOTE | 2020-05-26 11:21 | W.PM.PROGNOT ---
Date of Service Date of service: 05/26/20 Time of Service: 11:21 Subjective Subjective Patient reports: diarrhea Interval history since last seen: Lying in bed. States three loose stool this am no blood but with mucus. Abdominal pain appears to be under control. She is currently on PO vanco. Awaiting stool studies. She states she can't eat or drink however sitting next to her bed is water bottle and when asked she states yes I have been sipping on water. No nausea or vomiting. Denies CP, SOB. Objective Objective Clinical Data: Abnormal lab results 05/26/20 05/26/20 05/26/20 Range/Units 00:20 00:20 01:47 WBC 20.11 H (4.4-10.8) 10^3/uL Absolute Neutrophils 17.82 H (1.2-6.7) 10^3/uL Absolute Lymphocytes 0.64 L (1.2-3.4) 10^3/uL Absolute Monocytes 1.47 H (0.1-0.8) 10^3/uL Potassium 3.3 L (3.5-5.1) mmol/L Anion Gap 12.5 H (3-11) mmol/L Creatinine 1.09 H (0.55-1.02) mg/dL Glucose 149 H (74-106) mg/dL Urine Blood Trace-intact H (Negative) Urine RBC 3-5 H (0-2) HPF 05/26/20 05/26/20 Range/Units 06:50 06:50 WBC 15.10 H (4.4-10.8) 10^3/uL Absolute Neutrophils 13.33 H (1.2-6.7) 10^3/uL Absolute Lymphocytes 0.85 L (1.2-3.4) 10^3/uL Absolute Monocytes 0.82 H (0.1-0.8) 10^3/uL Potassium 3.3 L (3.5-5.1) mmol/L Anion Gap (3-11) mmol/L Creatinine (0.55-1.02) mg/dL Glucose 146 H (74-106) mg/dL Urine Blood (Negative) Urine RBC (0-2) HPF Vital Signs Temperature 37.3 C 05/26/20 07:55 Temperature Source Skin 05/26/20 07:55 Pulse 84 05/26/20 07:55 Pulse Rhythm Regular 05/26/20 10:06 Respiratory Rate 18 05/26/20 07:55 Respiratory Effort Non-Labored 05/26/20 10:06 Respiratory Depth Normal 05/26/20 10:06 Blood Pressure 104/62 05/26/20 07:55 Blood Pressure Position Sitting 05/26/20 00:09 Pulse Oximetry 97 05/26/20 07:55 Oxygen Delivery Method Room Air 05/26/20 07:55 Oxygen Flow Rate 0 05/26/20 07:55 Pain Level 0 05/26/20 07:55 Comment 05/26/20 06:35 Intake & Output 05/25/20 05/25/20 05/26/20 11:59 23:59 11:59 Intake Total 1250 / 1250 Balance 1250 / 1250 Weight 54.431 kg Intake: IV 1000 / 1000 Oral 250 / 250 Other: Urine Color Yellow Voiding Methods Toilet Laboratory Results WBC 15.10 10^3/uL (4.4-10.8) H 05/26/20 06:50 RBC 4.53 10^6/uL (3.93-5.22) 05/26/20 06:50 Hgb 13.6 g/dL (11.2-15.7) 05/26/20 06:50 Hct 40.4 % (36.0-46.0) 05/26/20 06:50 MCV 89.2 fL (80-95) 05/26/20 06:50 MCH 30.0 pg (27.0-33.0) 05/26/20 06:50 MCHC 33.7 % (32.0-36.0) 05/26/20 06:50 RDW 13.2 % (11.7-14.6) 05/26/20 06:50 Plt Count 300 10^3/uL (130-400) 05/26/20 06:50 MPV 9.7 fL (8.0-11.0) 05/26/20 06:50 Immature Gran % 0.4 05/26/20 06:50 Neutrophils % 88.3 05/26/20 06:50 Lymphocytes % 5.6 05/26/20 06:50 Monocytes % 5.4 05/26/20 06:50 Eosinophils % 0.1 05/26/20 06:50 Basophils % 0.2 05/26/20 06:50 Nucleated RBC % 0 % 05/26/20 06:50 Absolute Neutrophils 13.33 10^3/uL (1.2-6.7) H 05/26/20 06:50 Absolute Lymphocytes 0.85 10^3/uL (1.2-3.4) L 05/26/20 06:50 Absolute Monocytes 0.82 10^3/uL (0.1-0.8) H 05/26/20 06:50 Absolute Eosinophils 0.02 10^3/uL (0.0-0.7) 05/26/20 06:50 Absolute Basophils 0.03 10^3/uL (0.0-0.2) 05/26/20 06:50 Sodium 141 mmol/L (136-145) 05/26/20 06:50 Potassium 3.3 mmol/L (3.5-5.1) L 05/26/20 06:50 Chloride 106 mmol/L (98-107) 05/26/20 06:50 Carbon Dioxide 26.2 mmol/L (21.0-32.0) 05/26/20 06:50 Anion Gap 8.8 mmol/L (3-11) 05/26/20 06:50 BUN 9 mg/dL (7-18) 05/26/20 06:50 Creatinine 0.95 mg/dL (0.55-1.02) 05/26/20 06:50 Estimated GFR/1.73 m2 57.99 (mL/min/1.73m2) 05/26/20 06:50 Glucose 146 mg/dL (74-106) H 05/26/20 06:50 Calcium 8.5 mg/dL (8.5-10.1) 05/26/20 06:50 Total Bilirubin 0.9 mg/dL (0.2-1.0) 05/26/20 00:20 AST 17 U/L (15-37) 05/26/20 00:20 ALT 40 U/L (14-59) 05/26/20 00:20 Alkaline Phosphatase 67 U/L (46-116) 05/26/20 00:20 Total Protein 6.9 g/dL (6.4-8.2) 05/26/20 00:20 Albumin 3.4 g/dL (3.4-5.0) 05/26/20 00:20 Lipase 88 U/L (73-393) 05/26/20 00:20 Urine Color Yellow (Yellow) 05/26/20 01:47 Urine Clarity Clear (Clear) 05/26/20 01:47 Urine pH 6.5 (5-8) 05/26/20 01:47 Ur Specific [place] 1.010 (1.005-1.025) 05/26/20 01:47 Urine Protein Negative mg/dL (Negative) 05/26/20 01:47 Urine Ketones Negative mg/dL (Negative) 05/26/20 01:47 Urine Blood Trace-intact (Negative) H 05/26/20 01:47 Urine Nitrite Negative (Negative) 05/26/20 01:47 Urine Bilirubin Negative (Negative) 05/26/20 01:47 Urine Urobilinogen 0.2 EU/dL (Up TO 0.2) 05/26/20 01:47 Ur Leukocyte Esterase Negative (Negative) 05/26/20 01:47 Urine RBC 3-5 HPF (0-2) H 05/26/20 01:47 Urine WBC Negative HPF (0-5) 05/26/20 01:47 Ur Epithelial Cells Negative HPF (Negative) 05/26/20 01:47 Urine Crystals Negative HPF (Negative) 05/26/20 01:47 Urine Bacteria Rare HPF (Negative) 05/26/20 01:47 Urine Casts Negative LPF (Negative) 05/26/20 01:47 Urine Mucus Negative (Negative) 05/26/20 01:47 Ur Culture Indicated? No 05/26/20 01:47 Urine Glucose Negative mg/dL (Negative) 05/26/20 01:47
[2020-05-26 11:36] LABS: C-Reactive Protein 2.81 mg/dL (0.0-0.3)
[2020-05-26 12:10] LABS: Procalcitonin < 0.1 ng/mL
[2020-05-26 12:18] LABS: ESR 25 mm/hr (0-30)
[2020-05-27] MEDS: Lactated Ringers 1,000 ML 125 ML IV ×3 (03:21→23:36)
[2020-05-27 03:35] VITALS: BP 110/69; PULSE 77; RESP 17; TEMP 36.9; O2SAT 98
[2020-05-27] MEDS: Vancomycin 125 MG CAP PO (05:25)
[2020-05-27 07:02] LABS: HGB 12.4 g/dL (11.2-15.7); MCH 29.9 pg (27.0-33.0); MCHC 32.6 % (32.0-36.0); MCV 91.6 fL (80-95); MPV 10.2 fL (8.0-11.0); Platelet Count 241 10^3/uL (130-400); RBC 4.15 10^6/uL (3.93-5.22); RDW 13.2 % (11.7-14.6); RDW-SD 44.4 fL; WBC 7.91 10^3/uL (4.4-10.8)
[2020-05-27 07:18] LABS: Anion Gap 8.2 mmol/L (3-11); BUN 4 mg/dL (7-18); CO2 27.8 mmol/L (21.0-32.0); CREATININE 0.88 mg/dL (0.55-1.02); Calcium 8.3 mg/dL (8.5-10.1); Chloride 106 mmol/L (98-107); Glucose 158 mg/dL (74-106); Sodium 142 mmol/L (136-145)
[2020-05-27 07:20] LABS: Potassium 2.7 mmol/L (3.5-5.1)
[2020-05-27 07:24] VITALS: BP 117/69; PULSE 77; RESP 19; TEMP 36.7; O2SAT 97
[2020-05-27] MEDS: POTASSIUM CHLORIDE 20 MEQ/100 ML BAG 50 MEQ IVPB ×2 (07:47→12:29)
[2020-05-27] MEDS: Enoxaparin 40 MG/0.4 ML SYR SC (07:47)
[2020-05-27] MEDS: Potassium Chloride 20 MEQ TABCR 40 MEQ PO (07:47)
[2020-05-27 08:29] LABS: COVID-19 RT-PCR UVMMC Result Negative
--- NOTE | 2020-05-27 08:51 | PGE_ITS ---
Date of Service Date of service: 05/27/20 Time of Service: 08:51 Assessment and Plan Assessment and plan (1) C. difficile colitis: Status: Acute Assessment and plan: symptoms slowly improving, tolerating a diet but reporting some anorexia. PO vancomycin, add flagyl and questran. (2) Hypokalemia: Status: Acute Assessment and plan: from GI losses, replete, add magnesium level. (3) DVT prophylaxis: Status: Acute Assessment and plan: continue enoxaparin daily (4) Discharge planning issues: Status: Acute Assessment and plan: home tomorrow with no services. discussed with Dr Santamaria who is in agreement Subjective Subjective Patient reports: feels better, tolerating liquids well, tolerating a regular diet, diarrhea (4 episodes overnight) and afebrile; denies blood in stool and nausea Interval history since last seen: abdominal pain improved from a 10 on admission to a 2 today, feeling much better. up and independent in room Exam Const General: cooperative, healthy appearing, comfortable and no acute distress Nutritional Appearance: average body habitus Orientation: alert, awake and oriented x3 HENMT Head: normal to inspection, normocephalic and atraumatic Mouth: oral mucosae normal Resp Effort & Inspection: normal respiratory effort Auscultation: clear to auscultation bilaterally Cardio Rate: regular rate Rhythm: regular rhythm GI Inspection: normal to inspection Palpation: soft and tender (generalized, lower) Auscultation: hyperactive bowel sounds Skin General skin exam: no rashes or lesions noted Neuro General: patient alert, patient awake and patient oriented x3 Extrem General: normal to inspection, full ROM and no pedal edema Objective Objective Clinical Data: Abnormal lab results 05/26/20 05/27/20 Range/Units 06:50 06:30 Potassium 2.7 L* (3.5-5.1) mmol/L BUN 4 L (7-18) mg/dL Glucose 158 H (74-106) mg/dL Calcium 8.3 L (8.5-10.1) mg/dL C-Reactive Protein 2.81 H (0.0-0.3) mg/dL Vital Signs Temperature 36.7 C 05/27/20 07:24 Temperature Source Tympanic 05/27/20 07:24 Pulse 77 05/27/20 07:24 Pulse Rhythm Regular 05/27/20 05:11 Respiratory Rate 19 05/27/20 07:24 Respiratory Effort Non-Labored 05/27/20 05:11 Respiratory Depth Normal 05/27/20 05:11 Respiratory Pattern Normal 05/27/20 05:11 Blood Pressure 117/69 05/27/20 07:24 Blood Pressure Position Sitting 05/26/20 00:09 Pulse Oximetry 97 05/27/20 07:24 Oxygen Delivery Method Room Air 05/27/20 07:24 Oxygen Flow Rate 0 05/27/20 07:24 Pain Level 2 05/27/20 07:24 Comment 05/26/20 06:35 Intake & Output 05/26/20 05/26/20 05/27/20 11:59 23:59 11:59 Intake Total 2250 / 3189.583 939.583 / 3189.583 950 / 950 Output Total 200 / 200 Balance 2049 / 2989.583 939.583 / 2989.583 950 / 950 Weight 54.431 kg 57.2 kg Intake: IV 2000 / 2939.583 939.583 / 2939.583 950 / 950 Oral 250 / 250 Output: Urine 200 / 200 Other: Urine Color Yellow Pale Yellow Urine Appearance Sediment Clear Urine Odor None None Comment Pt voided at this time. Stool Characteristics Liquid Voiding Methods Toilet Toilet Toilet Laboratory Results WBC 7.91 10^3/uL (4.4-10.8) D 05/27/20 06:30 RBC 4.15 10^6/uL (3.93-5.22) 05/27/20 06:30 Hgb 12.4 g/dL (11.2-15.7) 05/27/20 06:30 Hct 38.0 % (36.0-46.0) 05/27/20 06:30 MCV 91.6 fL (80-95) 05/27/20 06:30 MCH 29.9 pg (27.0-33.0) 05/27/20 06:30 MCHC 32.6 % (32.0-36.0) 05/27/20 06:30 RDW 13.2 % (11.7-14.6) 05/27/20 06:30 Plt Count 241 10^3/uL (130-400) 05/27/20 06:30 MPV 10.2 fL (8.0-11.0) 05/27/20 06:30 Immature Gran % 0.4 05/26/20 06:50 Neutrophils % 88.3 05/26/20 06:50 Lymphocytes % 5.6 05/26/20 06:50 Monocytes % 5.4 05/26/20 06:50 Eosinophils % 0.1 05/26/20 06:50 Basophils % 0.2 05/26/20 06:50 Nucleated RBC % 0 % 05/26/20 06:50 Absolute Neutrophils 13.33 10^3/uL (1.2-6.7) H 05/26/20 06:50 Absolute Lymphocytes 0.85 10^3/uL (1.2-3.4) L 05/26/20 06:50 Absolute Monocytes 0.82 10^3/uL (0.1-0.8) H 05/26/20 06:50 Absolute Eosinophils 0.02 10^3/uL (0.0-0.7) 05/26/20 06:50 Absolute Basophils 0.03 10^3/uL (0.0-0.2) 05/26/20 06:50 ESR 25 mm/hr (0-30) 05/26/20 06:50 Sodium 142 mmol/L (136-145) 05/27/20 06:30 Potassium 2.7 mmol/L (3.5-5.1) L* 05/27/20 06:30 Chloride 106 mmol/L (98-107) 05/27/20 06:30 Carbon Dioxide 27.8 mmol/L (21.0-32.0) 05/27/20 06:30 Anion Gap 8.2 mmol/L (3-11) 05/27/20 06:30 BUN 4 mg/dL (7-18) L 05/27/20 06:30 Creatinine 0.88 mg/dL (0.55-1.02) 05/27/20 06:30 Estimated GFR/1.73 m2 >= 60.00 (mL/min/1.73m2) 05/27/20 06:30 Glucose 158 mg/dL (74-106) H 05/27/20 06:30 Calcium 8.3 mg/dL (8.5-10.1) L 05/27/20 06:30 Total Bilirubin 0.9 mg/dL (0.2-1.0) 05/26/20 00:20 AST 17 U/L (15-37) 05/26/20 00:20 ALT 40 U/L (14-59) 05/26/20 00:20 Alkaline Phosphatase 67 U/L (46-116) 05/26/20 00:20 C-Reactive Protein 2.81 mg/dL (0.0-0.3) H 05/26/20 06:50 Total Protein 6.9 g/dL (6.4-8.2) 05/26/20 00:20 Albumin 3.4 g/dL (3.4-5.0) 05/26/20 00:20 Lipase 88 U/L (73-393) 05/26/20 00:20 Procalcitonin < 0.1 ng/mL 05/26/20 06:50 Urine Color Yellow (Yellow) 05/26/20 01:47 Urine Clarity Clear (Clear) 05/26/20 01:47 Urine pH 6.5 (5-8) 05/26/20 01:47 Ur Specific [place] 1.010 (1.005-1.025) 05/26/20 01:47 Urine Protein Negative mg/dL (Negative) 05/26/20 01:47 Urine Ketones Negative mg/dL (Negative) 05/26/20 01:47 Urine Blood Trace-intact (Negative) H 05/26/20 01:47 Urine Nitrite Negative (Negative) 05/26/20 01:47 Urine Bilirubin Negative (Negative) 05/26/20 01:47 Urine Urobilinogen 0.2 EU/dL (Up TO 0.2) 05/26/20 01:47 Ur Leukocyte Esterase Negative (Negative) 05/26/20 01:47 Urine RBC 3-5 HPF (0-2) H 05/26/20 01:47 Urine WBC Negative HPF (0-5) 05/26/20 01:47 Ur Epithelial Cells Negative HPF (Negative) 05/26/20 01:47 Urine Crystals Negative HPF (Negative) 05/26/20 01:47 Urine Bacteria Rare HPF (Negative) 05/26/20 01:47 Urine Casts Negative LPF (Negative) 05/26/20 01:47 Urine Mucus Negative (Negative) 05/26/20 01:47 Ur Culture Indicated? No 05/26/20 01:47 Urine Glucose Negative mg/dL (Negative) 05/26/20 01:47 Stool Campylobacter PCR Cancelled 05/26/20 13:00 Stool Salmonella PCR Cancelled 05/26/20 13:00 Stool Shigella PCR Cancelled 05/26/20 13:00 COVID-19 PCR Cancelled 05/26/20 03:00 COVID-19 PCR Negative 05/26/20 03:00 Nasopharyn COVID-19 PCR Cancelled 05/26/20 03:00 Nasopharyn COVID-19 PCR Not Applicable 05/26/20 03:00 Shiga Toxin (PCR) Cancelled 05/26/20 13:00 Ref Test Perform Site Cancelled 05/26/20 03:00 Ref Test Perform Site Center Line [facility] 05/26/20 03:00
[2020-05-27 09:02] LABS: Magnesium 1.7 mg/dL (1.8-2.4)
[2020-05-27] MEDS: Cholestyramine/Aspartame PKT 1 EACH PO ×2 (09:18→18:18)
[2020-05-27] MEDS: metroNIDAZOLE 500 MG/100 ML BAG 100 MG IVPB ×3 (09:19→19:38)
[2020-05-27] MEDS: MAGNESIUM SULFATE 2 GM/50 ML BAG IVPB (10:30)
[2020-05-27 14:15] LABS: Potassium 3.6 mmol/L (3.5-5.1)
[2020-05-27 18:19] VITALS: BP 121/73; PULSE 75; RESP 18; TEMP 36.7; O2SAT 99
--- NOTE | 2020-05-27 19:00 | PDOC.CMIN ---
- If Service Date Differs Date of service: 05/27/20 Time of Service: 19:00 Care Management Initial Assess REASON FOR HOSPITALIZATION:: Colitis PAST MEDICAL HISTORY/PAST SURGICAL HISTORY:: Medical History . Benign paroxysmal positional vertigo (Acute). Hyperlipidemia (Acute). Osteoarthritis (Chronic). Other cervical disc degeneration, unspecified cervical region (Acute). Prediabetes (Acute). Vitamin D deficiency (Acute). Surgical History . History of appendectomy (Chronic). History of delivery (Chronic). History of knee surgery (Acute). History of laparoscopic cholecystectomy (Acute) PREVIOUS FUNCTIONAL STATUS/SOCIAL/FAMILY SUPPORTS:: Shelly lives in [place] with her , Otf. They have split their time between [place] and [place] since she retired from the [employer]. Their children are grown up, and they have two grandchildren that she is very proud of. She is independent at baseline. CURRENT FUNCTIONAL STATUS:: Shelly was sitting up eating dinner when CM met with her. She reported that being sick is new to her, as she is usually very healthy. She stated that she is feeling a bit better today than she was when she arrived. She also reported that she believes this all stemmed from some dental work that she had recently. CM will continue to follow. ADVANCE DIRECTIVES:: None on file. Has patient been provided with info about the portal/API?: No Did the patient sign up for the portal?: No CODE STATUS:: Full Code INSURANCE COVERAGE / FINANCIAL ISSUES:: [facility]/ Commercial replacement- [facility] CURRENT HOME/COMMUNITY SERVICES/EQUIPMENT:: No current equipment or services in the community. PRIMARY CARE PHYSICIAN:: Tucker Hurtado POTENTIAL DISCHARGE NEEDS:: Evaluations for further needs, follow up appointments. PATIENT/FAMILY EDUCATION NEEDS:: Review discharge instructions regarding activity levels and medications, discussion of self care needs including ask me three. ANTICIPATED BARRIERS TO DISCHARGE:: None identified at this time. TRANSPORTATION:: Via private vehicle by her . PLAN:: Anticipate Shelly will return home when medically cleared. She will be driven home by her when ready via private vehicle. She will follow up with her PCP and discharge plan of care. CM will continue to follow.
[2020-05-27 19:25] VITALS: BP 112/67; PULSE 73; RESP 18; TEMP 37; O2SAT 100
[2020-05-28] MEDS: metroNIDAZOLE 500 MG/100 ML BAG 100 MG IVPB ×2 (02:52→08:24)
[2020-05-28 07:00] LABS: Abs Immature Grans 0.01 10^3/uL (0.0-0.06); Absolute Basophil Count 0.02 10^3/uL (0.0-0.2); Absolute Eosinophil Count 0.07 10^3/uL (0.0-0.7); Absolute Lymphocyte Count 0.81 10^3/uL (1.2-3.4); Absolute Monocyte Count 0.41 10^3/uL (0.1-0.8); Absolute Neutrophil Count 3.15 10^3/uL (1.2-6.7); Basophils % 0.4; Eosinophils % 1.6; HCT 34.7 % (36.0-46.0); HGB 11.6 g/dL (11.2-15.7); Immature Grans % 0.2; Lymphocytes % 18.1; MCH 29.7 pg (27.0-33.0); MCHC 33.4 % (32.0-36.0); MPV 9.9 fL (8.0-11.0); Monocytes % 9.2; Neutrophils % 70.5; Nucleated RBC 0 %; Platelet Count 224 10^3/uL (130-400); RDW 13.1 % (11.7-14.6); RDW-SD 42.5 fL
[2020-05-28 07:10] LABS: Anion Gap 5.7 mmol/L (3-11); BUN 4 mg/dL (7-18); CO2 28.3 mmol/L (21.0-32.0); CREATININE 0.78 mg/dL (0.55-1.02); Calcium 8.3 mg/dL (8.5-10.1); Chloride 110 mmol/L (98-107); Glucose 134 mg/dL (74-106); Magnesium 1.9 mg/dL (1.8-2.4); Potassium 3.8 mmol/L (3.5-5.1); Sodium 144 mmol/L (136-145); WBC 4.47 10^3/uL (4.4-10.8)
[2020-05-28] MEDS: Enoxaparin 40 MG/0.4 ML SYR SC (08:24)
[2020-05-28 08:38] VITALS: BP 122/70; PULSE 75; RESP 20; TEMP 37.1; O2SAT 100
--- NOTE | 2020-05-28 08:49 | DSE_ITS ---
Date of service: 05/28/20 Time of Service: 08:50 DS: Diagnosis Discharge Diagnosis (1) C. difficile colitis: Status: Acute (2) Hypokalemia: Status: Acute Discharge Plan Disposition Patient Disposition: HOME Condition: Improving Discharge Details Chief Complaint: Abd Prob Clinical Impression: Colitis Reason For Visit: COLITIS Admit Date/Time: 05/26/20 02:49 Admit Provider: Gael Scott Attending Provider: Gael Scott Primary Care Provider: Tucker Hurtado ED Provider: Papa Reno [facility] Course Hospital Course: This is a 69-year-old healthy female who was diagnosed and treated for diverticulitis on May 08 in the [facility] emergency room with a 10-day course of Bactrim and metronidazole presented again to the emergency room today with ongoing diarrhea and worse abdominal pain and vomiting. On May 08 the patient presented with 2 days of frequent mucousy stools along with dizziness and fever to 100.8. A CT scan was done which showed colitis and diverticulitis. Stool studies including C. difficile screen were ordered, but the patient was not able to give a stool sample. She was sent home on antibiotics as above with Bactrim rather than ciprofloxacin due to her allergy. Studies to come back later showing negative Hemoccult and negative stool pathogen PCR. Symptoms did improve but her stools never went totally back to normal. She was better for 4 to 5 days off of antibiotics but ultimately had worsening of her abdominal pain as well as increase in her stooling. Work up in the ED showed cdiff colitis. She was referred to observation and given IV hydration, oral vancomycin, electrolyte replacement, continued to have frequent stools so flagyl and questran were added. she improved and now is having formed stools, her electrolytes have been replaced. she will be discharged to home with no services. she will complete a 10 day course of oral vanco and flaygl. she will return for new or worsening symptoms. Of note, patient had dental work in March, and took clindamycin during that time. She states her symptoms started not long after that antibiotic course. She also traveled to [facility] at the end of October into early November just before the COVID shutdown. discharge plan discussed with Dr Santamaria who is in agreement Home Meds and New Rx's Prescriptions: New vancomycin 250 mg Capsule 250 mg PO Q6H Qty: 32 RF: 0 Bio-K plus 50 billion cell Capsule,Delayed Release(Dr/Ec) 1 cap PO DAILY Qty: 14 RF: 0 metronidazole [Flagyl] 500 mg tablet 500 mg PO QID Qty: 32 RF: 0 Continued vitamin B complex [B Complex-Vitamin B12] Tablet 1 tab PO DAILY RF: 0 garlic Tablet 300 mg PO DAILY RF: 0 ascorbate calcium (vitamin C) 500 mg tablet 500 mg PO DAILY RF: 0 cholecalciferol (vitamin D3) 50 mcg (2,000 unit) capsule 50 mcg PO DAILY RF: 0 Ultra CoQ10 75 mg capsule 75 mg PO DAILY RF: 0 ondansetron HCl [Zofran] 4 mg tablet 4 mg PO Q6H PRN (Reason: nausea and vomiting) Qty: 30 RF: 0 Discharge Instructions Instructions: C Diff (Clostridium Difficile) Infection (DC) Additional Instructions: Continue medications as directed even if you are feeling better complete course as directed. Drink at least 6 to 8 glasses of water daily to stay well-hydrated. Stand Alone Forms: Nursing Discharge Form Referrals: Tucker Hurtado DO [Primary Care Provider] - Activity:: Activity as Tolerated Equipment/Supplies:: No Equipment Needed Diet:: As Tolerated Discharge Orders Discharge Orders: Discharge Order (Routine); Ordered 05/28/20 Ordered By: Thelma Manuel DS: Summary Status at Discharge Functional status at discharge: independent ambulation Overall status at discharge: patient is progressing back to baseline Mental Status: mental status grossly normal Speech and Movement: speech and movement normal Mood: congruent mood Affect: normal affect Exam Const General: cooperative, healthy appearing, comfortable and no acute distress Nutritional Appearance: average body habitus Orientation: alert, awake and oriented x3 HENCO Head: normal to inspection, normocephalic and atraumatic Mouth: oral mucosae normal Resp Effort & Inspection: normal respiratory effort Auscultation: clear to auscultation bilaterally Cardio Rate: regular rate Rhythm: regular rhythm GI Inspection: normal to inspection Palpation: soft and tender (generalized, lower) Auscultation: hyperactive bowel sounds Skin General skin exam: no rashes or lesions noted Neuro General: patient alert, patient awake and patient oriented x3 Extrem General: normal to inspection, full ROM and no pedal edema Psych Mental Status: mental status grossly normal Speech and Movement: speech and movement normal Mood: congruent mood Affect: normal affect DS: Data Vitals/I&O Vitals and I&O: Vital Signs Temperature 37.1 C 05/28/20 08:38 Temperature Source Tympanic 05/28/20 08:38 Pulse 75 05/28/20 08:38 Pulse Rhythm Regular 05/28/20 03:03 Respiratory Rate 20 05/28/20 08:38 Respiratory Effort 05/28/20 03:03 Respiratory Depth Normal 05/28/20 03:03 Respiratory Pattern Normal 05/28/20 03:03 Blood Pressure 122/70 05/28/20 08:38 Blood Pressure Position Sitting 05/26/20 00:09 Pulse Oximetry 100 05/28/20 08:38 Oxygen Delivery Method Room Air 05/28/20 08:38 Oxygen Flow Rate 0 05/28/20 08:38 Pain Level 0 05/28/20 08:38 Comment 05/26/20 06:35 Intake & Output 05/27/20 05/27/20 05/28/20 11:59 23:59 11:59 Intake Total 2150 / 3700 1550 / 3700 100 / 100 Balance 2150 / 3700 1550 / 3700 100 / 100 Weight 57.2 kg 56.9 kg Intake: IV 2150 / 3500 1350 / 3500 100 / 100 Oral 200 / 200 Other: Urine Color Pale Yellow Yellow Yellow Urine Appearance Clear Urine Odor None Stool Size Small Stool Characteristics Liquid Voiding Methods Toilet Toilet Toilet Data Completed and Pending Labs on day of discharge: Labs from last 24 hours 05/28/20 05/28/20 05/27/20 06:39 06:39 14:06 WBC 4.47 D RBC 3.90 L Hgb 11.6 Hct 34.7 L MCV 89.0 MCH 29.7 MCHC 33.4 RDW 13.1 Plt Count 224 MPV 9.9 Immature Gran % 0.2 Neutrophils % 70.5 Lymphocytes % 18.1 Monocytes % 9.2 Eosinophils % 1.6 Basophils % 0.4 Nucleated RBC % 0 Absolute Neutrophils 3.15 Absolute Lymphocytes 0.81 L Absolute Monocytes 0.41 Absolute Eosinophils 0.07 Absolute Basophils 0.02 Sodium 144 Potassium 3.8 3.6 D Chloride 110 H Carbon Dioxide 28.3 Anion Gap 5.7 BUN 4 L Creatinine 0.78 Estimated GFR/1.73 m2 >= 60.00 Glucose 134 H Calcium 8.3 L Magnesium 1.9 08/31/20 06:30 WBC RBC Hgb Hct MCV MCH MCHC RDW Plt Count MPV Immature Gran % Neutrophils % Lymphocytes % Monocytes % Eosinophils % Basophils % Nucleated RBC % Absolute Neutrophils Absolute Lymphocytes Absolute Monocytes Absolute Eosinophils Absolute Basophils Sodium Potassium Chloride Carbon Dioxide Anion Gap BUN Creatinine Estimated GFR/1.73 m2 Glucose Calcium Magnesium 1.7 L PFSH Medical History Benign paroxysmal positional vertigo (Acute) Hyperlipidemia (Acute) Osteoarthritis (Chronic) Other cervical disc degeneration, unspecified cervical region (Acute) Prediabetes (Acute) Vitamin D deficiency (Acute) Surgical History History of appendectomy (Chronic) History of delivery (Chronic) History of knee surgery (Acute) History of laparoscopic cholecystectomy (Acute) Family History Mother Heart disease Father Prostate cancer Social History Smoking/Tobacco Use Status: Never Alcohol Intake: current Alcohol Intake frequency: 0-2 drinks per day Alcohol type: wine Drug use: Never Household members: spouse Number of Children: 1 number of grandchildren: 2 Communication Needs: Language Barriers current occupation: Retired from [employer] Pets and animals: No Current gender identity: female What is your relationship status?: How often do you attend alevism or mormon services?: 4 or more times per year Do you belong to any clubs or organized social groups?: no Panel score (0-1 are the most socially isolated patients): 2 What type of physical activity do you participate in: none Seatbelt use: always Do you feel safe at home: Yes Do you feel safe in your relationship?: Yes Victim of physical abuse: No Victim of emotional abuse: No Victim of sexual abuse: No
[2020-05-28] MEDS: Cholestyramine/Aspartame PKT 1 EACH PO (09:21)
--- NOTE | 2020-05-28 14:42 | PDOC.CMDIS ---
- If Service Date Differs Date of service: 05/28/20 Time of Service: 14:42 LACE Index Scoring Tool - Questions: Length of Stay (in days): 3 Acuity (Admit via E.D.?): Yes E.D. Visits: 2 - Answers: Total Score: 8 Risk of Readmission: Low Risk Care Management Discharge Reason for Hospitalization: Colitis Discharge Plan: Shelly will return home with no additional services at this time. Her will drive her home via private vehicle. Shelly required assistance from as her insurance didn't cover her new prescription of Vanco, and it was between $500-$1000 at local pharmacies. contacted [facility] and was able to obtain her prescription for less than $150. Shelly will follow up with her PCP and discharge plan of care. She is happy to be going home. Patient/Family Education Needs: Review discharge instructions regarding activity levels and medications, discussion of self care needs including ask me three.
[2020-05-28 16:40] LABS: Calcitonin <5.0 pg/mL (<=7.6)
[2020-05-31 14:38] LABS: Misc Referral (VDH) See Comments
== END 2020-05-28 12:36 | disposition home or self-care (01) ==
LOC: ER 05-26 03:36 → MS 05-26 03:48
PROVIDERS: Nurse Practitioner Acute Care; Nurse Practitioner Family; Admitting Provider Family Medicine; Emergency Provider Emergency Medicine; PCP Family Medicine; Visit Provider Family Medicine
DX: A04.72 Enterocolitis due to Clostridium difficile, not specified as recurrent (principal); E86.0 Dehydration; E87.6 Hypokalemia; H81.10 Benign paroxysmal vertigo, unspecified ear; E78.5 Hyperlipidemia, unspecified; M19.90 Unspecified osteoarthritis, unspecified site; E55.9 Vitamin D deficiency, unspecified; R73.03 Prediabetes; M50.30 Other cervical disc degeneration, unspecified cervical region
CPT/HCPCS: 36415; 80048; 80053; 83690; 84145; 85027; 85652; 87505; 96361; 96374; 99217; 99219; 99225; 99285; J1650; NC; U0003; 74177; 81003; 81015; 82308; 83735; 84132; 85025; 86140; 87324; G0378; J1885; J2270; J3480

== ENCOUNTER 2020-06-10 12:17 | Outpatient (REF) | payer OTHER, SELFPAY ==
[2020-06-10 18:52] LABS: Abs Immature Grans 0.02 10^3/uL (0.0-0.06); Absolute Basophil Count 0.04 10^3/uL (0.0-0.2); Absolute Eosinophil Count 0.04 10^3/uL (0.0-0.7); Absolute Lymphocyte Count 1.33 10^3/uL (1.2-3.4); Absolute Monocyte Count 0.65 10^3/uL (0.1-0.8); Absolute Neutrophil Count 3.39 10^3/uL (1.2-6.7); Basophils % 0.7; Eosinophils % 0.7; HCT 41.2 % (36.0-46.0); HGB 13.4 g/dL (11.2-15.7); Immature Grans % 0.4; Lymphocytes % 24.3; MCH 29.7 pg (27.0-33.0); MCHC 32.5 % (32.0-36.0); MCV 91.4 fL (80-95); MPV 9.8 fL (8.0-11.0); Monocytes % 11.9; Nucleated RBC 0 %; Platelet Count 407 10^3/uL (130-400); RBC 4.51 10^6/uL (3.93-5.22); RDW 13.3 % (11.7-14.6); WBC 5.47 10^3/uL (4.4-10.8)
== END 2020-06-10 12:37 ==
LOC: LBN 12:17
PROVIDERS: PCP Family Medicine; Visit Provider Family Medicine
DX: A04.72 Enterocolitis due to Clostridium difficile, not specified as recurrent (principal)
CPT/HCPCS: 85025

== ENCOUNTER 2020-06-16 04:52 | Inpatient (IN) | payer OTHER, SELFPAY ==
--- NOTE | 2020-06-16 05:01 | W.ED.GENAD ---
Discharge Plan Disposition Patient Disposition: [facility] INPATIENT Condition: Stable Discharge Details Clinical Impression: Pancolitis, Diarrhea, History of Clostridioides difficile colitis Primary Care Provider: Tucker Hurtado ED Provider: Oneyda Willett Home Meds and New Rx's Prescriptions: No Action vitamin B complex [B Complex-Vitamin B12] Tablet 1 tab PO DAILY RF: 0 garlic Tablet 300 mg PO DAILY RF: 0 ascorbate calcium (vitamin C) 500 mg tablet 500 mg PO DAILY RF: 0 cholecalciferol (vitamin D3) 50 mcg (2,000 unit) capsule 50 mcg PO DAILY RF: 0 Ultra CoQ10 75 mg capsule 75 mg PO DAILY RF: 0 Bio-K plus 50 billion cell Capsule,Delayed Release(Dr/Ec) 1 cap PO DAILY Qty: 14 RF: 0 Medical Decision Making <Papa Reno MD - Last Filed: 06/16/20 07:35> Patient has just finished treatment for C. difficile colitis and has worsening pain and diarrhea. She denies fever. She has decreased oral intake but no nausea vomiting. She was treated with oral vancomycin and oral Flagyl. Will place IV and give fluid hydration as well as obtain labs and repeat CT scan of the abdomen pelvis. 07:30 - Patient's labs look okay. White count minimally elevated. Chemistries unremarkable other than slightly low potassium. CT scan has been completed and we are awaiting the read. Medical Records Medical records reviewed: Yes I reviewed the patient's medical records. Lab Data Lab results reviewed: Yes I reviewed the patient's lab results. <Oneyda Willett DO - Last Filed: 06/16/20 09:04> 0800 --please see Dr. Reno's note for initial presentation, exam and plan. Case endorsed with plan for admission for continued diarrhea with concern for recurrence of C. difficile colitis with potential for dehydration. CT notes pancolitis. She remains hemodynamically stable and pain controlled. Her abdomen is soft and minimally tender along lower quadrants. She is agreeable with plan for admission. She was able to provide a stool sample which was watery and mucousy. Case discussed with hospitalist accepts patient for admission. They will place orders in addition to antibiotics. Medical Records Medical records reviewed: Yes I reviewed the patient's medical records. Imaging Data Radiologic Study: Radiologist's impression: CT Abdomen And Pelvis With Contrast Exam date and time: 06/16/2020 5:30 AM Age: 69 years old Clinical indication: Other: Abdominal pain and diarrhea TECHNIQUE: Imaging protocol: Computed tomography of the abdomen and pelvis with intravenous contrast. Radiation optimization: All CT scans at this facility use at least one of these dose optimization techniques: automated exposure control; mA and/or kV adjustment per patient size (includes targeted exams where dose is matched to clinical indication); or iterative reconstruction. Contrast material: OMNIPAQUE 350; Contrast volume: 100 ml; Contrast route: INTRAVENOUS (IV); COMPARISON: CT ABDOMEN PELVIS W 05/26/2020 1:34 AM FINDINGS: Lungs: Interstitial prominence and trace dependent airspace disease. Liver: No focal hepatic mass. Gallbladder and bile ducts: Status post cholecystectomy and mild biliary ductal dilatation. Pancreas: Mild pancreatic ductal dilatation without focal mass. Spleen: No splenomegaly. Adrenals: Unremarkable adrenals. Kidneys and ureters: 3 mm right renal cyst. No hydronephrosis. Lobulated right renal morphology. Stomach and bowel: Diffuse wall thickening in the rectum and colon, in a pattern of pancolitis. Wall thickening in the nondistended stomach. Appendix: Appendix not visualized. Intraperitoneal space: No significant free fluid. Vasculature: Normal caliber of the abdominal aorta. Lymph nodes: No pathologically enlarged lymph nodes. Bladder: Normal bladder morphology. Reproductive: Unremarkable as visualized. Bones/joints: Mild scoliosis. Degenerative change, disc bulging, and vacuum discs. Soft tissues: Calcification at the gluteal muscle attachment site. IMPRESSION: 1. Diffuse wall thickening in the rectum and colon, in a pattern of pancolitis. 2. Wall thickening in the nondistended stomach. 3. Additional findings as described above. HPI <Papa Reno MD - Last Filed: 06/16/20 07:35> General Mode of arrival: ambulatory. Date/Time Provider Initiated Documentation: 06/16/20 04:59. Limitations to Documentation: no limitations. Information obtained by: patient, RN notes reviewed and old records reviewed. HPI Narrative: Patient presents the ED with worsening abdominal pain mostly in the left lower quadrant since yesterday. She is also having frequent watery diarrhea. Just finished treatment with oral Vanco and Flagyl for C. difficile. She denies fever. She denies nausea vomiting. She has decreased oral intake because it causes pain and diarrhea. There is been no bloody diarrhea. She never completely felt 100% better but in the last day or 2 has got significantly worse again. Related Data Home Medications Medication Instructions Recorded Confirmed ascorbate calcium (vitamin C) 500 500 mg PO DAILY 02/26/20 06/16/20 mg tablet cholecalciferol (vitamin D3) 50 50 mcg PO DAILY 02/26/20 06/16/20 mcg (2,000 unit) capsule coenzyme Q10 75 mg capsule 75 mg PO DAILY 02/26/20 06/16/20 garlic 300 mg PO DAILY 02/26/20 06/16/20 vitamin B complex 1 tab PO DAILY 02/26/20 06/16/20 L. acidophilus,casei,rhamnosus 1 cap PO DAILY #14 cap 05/28/20 06/16/20 [Bio-K plus] Previous Rx's Medication Instructions Recorded L. acidophilus,casei,rhamnosus 1 cap PO DAILY #14 cap 05/28/20 [Bio-K plus] Allergies Allergy/AdvReac Type Severity Reaction Status Date / Time ciprofloxacin [From Cipro] Allergy Intermediate vomiting Verified 06/16/20 05:06 bug bites AdvReac Intermediate swelling Uncoded 06/16/20 05:06 General ARELY: 3 Review of Systems <Papa Reno MD - Last Filed: 06/16/20 07:35> Narrative: 07/10 Review of Systems completed and is negative except as stated above in HPI (Systems reviewed: Const, Eyes, ENT, Resp, CV, GI, , MSK, Skin, Neuro) PFSH <Papa Reno MD - Last Filed: 06/16/20 07:35> Medical History (Updated 06/16/20 @ 09:04 by Oneyda Willett DO) Benign paroxysmal positional vertigo Hyperlipidemia Osteoarthritis Other cervical disc degeneration, unspecified cervical region Prediabetes Vitamin D deficiency Surgical History History of appendectomy History of delivery History of knee surgery History of laparoscopic cholecystectomy Family History Mother Heart disease Father Prostate cancer Social History Smoking/Tobacco Use Status: Never Alcohol Intake: current Alcohol Intake frequency: 0-2 drinks per day Alcohol type: wine Drug use: Never Household members: spouse Number of Children: 1 number of grandchildren: 2 Communication Needs: Language Barriers current occupation: Retired from [employer]) Pets and animals: No Current gender identity: female What is your relationship status?: How often do you attend hinduism or muslim services?: 4 or more times per year Do you belong to any clubs or organized social groups?: no Panel score (0-1 are the most socially isolated patients): 2 What type of physical activity do you participate in: none Seatbelt use: always Do you feel safe at home: Yes Do you feel safe in your relationship?: Yes Victim of physical abuse: No Victim of emotional abuse: No Victim of sexual abuse: No Exam <Papa Reno MD - Last Filed: 06/16/20 07:35> Narrative Exam Narrative: Vitals: Afebrile. Mild tachycardia. Otherwise normal vitals and room air pulse ox. Const: WDWN elderly female in NAD. HEENT: NC/AT. Normal facial exam. Eyes: Normal conjunctiva and sclera. Neck: Supple. Trachea midline. Lungs: Normal respiratory effort. Cor: Good radial pulses. GI: Soft. Nondistended. Tender in left lower quadrant without guarding or rebound. Neuro: A+O x 3. Normal speech, mentation, gait. Cranial nerves II - XII grossly intact. No gross motor or sensory deficit. Ext: No C/C/E. Skin: Warm and dry without rash. Sign Out <Papa Reno MD - Last Filed: 06/16/20 07:35> Sign Out Data: Sign Out Comment: pending admit Last updated by Papa Reno MD at 06/16/20 08:08
[2020-06-16 05:02] VITALS: BP 113/87; PULSE 98; RESP 16; TEMP 36.4; O2SAT 98
--- NOTE | 2020-06-16 05:15 | DI.CT_ITS ---
EXAM: CT ABDOMEN PELVIS W CLINICAL HISTORY: abdominal pain and diarrhea TECHNIQUE: Imaging Protocol: Axial computed tomography images with coronal and sagittal reformatted images were created and reviewed CONTRAST MATERIAL: Intravenous: Omnipaque 350 Contrast volume:structured data in ml Oral: yes / no COMPARISON: CT CT ABDOMEN PELVIS W from 05/26/2020 FINDINGS: ABDOMEN: Lung Bases: Stable 2 mm nodule in the right lower lobe. Dependent atelectasis in the bases bilateral ly. Liver: Normal density. No measurable mass. Portal, Superior Mesenteric, and Splenic Veins: Unremarkable. Gallbladder and Biliary Tract: Status post cholecystectomy. Mild dilatation of the bile ducts which is likely secondary to the post cholecystectomy state. Pancreas: Normal density, no abnormal calcifications or inflammatory process. Spleen: Normal. Adrenals: No masses seen. Kidneys: Normal size, contour and axis. No radiodense stones or obstructive uropathy. No suspicious m asses seen. Mild right renal cortical scarring. Abdominal Aorta: Abdominal portion non-dilated. Bowel: No evidence of obstruction. Diffuse wall thickening seen throughout the colon and rectum. No evidence of acute appendicitis. The stomach is nondistended likely accounting for the apparent wall thickening. Peritoneal Cavity: No ascites, collection or mesenteric inflammatory response. Lymph Nodes: Within normal limits. Bones: Degenerative changes in the spine. Mild scoliosis. Soft Tissues: Unremarkable. PELVIS: Bladder: Symmetric distention, no gross wall thickening. Reproductive Organs: Unremarkable as visualized. Lymph Nodes: Within normal limits. Bones: Degenerative changes in the spine. IMPRESSION: Diffuse thickening of the wall throughout the colon and rectum suspicious for an infectious or inflam matory colitis. No evidence of bowel obstruction. RADIATION DOSE DELIVERED: 732.97mGy.cm Total DLP DATA REPOSITORY: All CT scans at this facility are submitted to the National Radiology Data Registry (NRDR) Dose Index Registry (DIR) with the [employer] (ACR). RADIATION OPTIMIZATION: All CT scans at this facility use at least one of these dose optimization te chniques: automated exposure control; mA and/or kV adjustment per patient size (includes targeted exa ms where dose is matched to clinical indication); or iterative reconstruction.
[2020-06-16] MEDS: Lactated Ringers 1,000 ML 125 ML IV (05:50)
[2020-06-16] MEDS: MORPHine 10 MG/ML VIAL 4 MG IVP (05:50)
[2020-06-16 05:55] LABS: Abs Immature Grans 0.06 10^3/uL (0.0-0.06); Absolute Basophil Count 0.01 10^3/uL (0.0-0.2); Absolute Eosinophil Count 0.04 10^3/uL (0.0-0.7); Absolute Lymphocyte Count 0.87 10^3/uL (1.2-3.4); Basophils % 0.1; Eosinophils % 0.3; HCT 40.4 % (36.0-46.0); HGB 13.4 g/dL (11.2-15.7); Immature Grans % 0.5; MCH 29.6 pg (27.0-33.0); MCHC 33.2 % (32.0-36.0); MCV 89.4 fL (80-95); MPV 9.8 fL (8.0-11.0); Neutrophils % 84.1; Nucleated RBC 0 %; Platelet Count 267 10^3/uL (130-400); RBC 4.52 10^6/uL (3.93-5.22); RDW 13.5 % (11.7-14.6); RDW-SD 44.5 fL; WBC 12.44 10^3/uL (4.4-10.8)
[2020-06-16 06:04] LABS: Absolute Neutrophil Count 10.46 10^3/uL (1.2-6.7)
[2020-06-16 06:09] LABS: ALT 52 U/L (14-59); AST 23 U/L (15-37); Albumin 3.3 g/dL (3.4-5.0); Alkaline Phosphatase 96 U/L (46-116); BUN 12 mg/dL (7-18); CREATININE 0.89 mg/dL (0.55-1.02); Calcium 8.9 mg/dL (8.5-10.1); Chloride 105 mmol/L (98-107); Glucose 131 mg/dL (74-106); Potassium 3.2 mmol/L (3.5-5.1); Sodium 139 mmol/L (136-145); Total Protein 6.8 g/dL (6.4-8.2)
[2020-06-16] MEDS: Omnipaque 350 MG/ML 100 ML BTL IJ (07:20)
[2020-06-16] MEDS: Normal Saline Flush 10 ML SYR IVP (07:23)
[2020-06-16] MEDS: Normal Saline - Diluent 50 ML VIAL IV (07:23)
--- NOTE | 2020-06-16 07:48 | DI.VRAD_ITS ---
PROCEDURE INFORMATION: Preliminary report Exam: CT Abdomen And Pelvis With Contrast Exam date and time: 06/16/2020 5:30 AM Age: 69 years old Clinical indication: Other: Abdominal pain and diarrhea TECHNIQUE: Imaging protocol: Computed tomography of the abdomen and pelvis with intravenous contrast. Radiation optimization: All CT scans at this facility use at least one of these dose optimization techniques: automated exposure control; mA and/or kV adjustment per patient size (includes targeted exams where dose is matched to clinical indication); or iterative reconstruction. Contrast material: OMNIPAQUE 350; Contrast volume: 100 ml; Contrast route: INTRAVENOUS (IV); COMPARISON: CT ABDOMEN PELVIS W 05/26/2020 1:34 AM FINDINGS: Lungs: Interstitial prominence and trace dependent airspace disease. Liver: No focal hepatic mass. Gallbladder and bile ducts: Status post cholecystectomy and mild biliary ductal dilatation. Pancreas: Mild pancreatic ductal dilatation without focal mass. Spleen: No splenomegaly. Adrenals: Unremarkable adrenals. Kidneys and ureters: 3 mm right renal cyst. No hydronephrosis. Lobulated right renal morphology. Stomach and bowel: Diffuse wall thickening in the rectum and colon, in a pattern of pancolitis. Wall thickening in the nondistended stomach. Appendix: Appendix not visualized. Intraperitoneal space: No significant free fluid. Vasculature: Normal caliber of the abdominal aorta. Lymph nodes: No pathologically enlarged lymph nodes. Bladder: Normal bladder morphology. Reproductive: Unremarkable as visualized. Bones/joints: Mild scoliosis. Degenerative change, disc bulging, and vacuum discs. Soft tissues: Calcification at the gluteal muscle attachment site. IMPRESSION: 1. Diffuse wall thickening in the rectum and colon, in a pattern of pancolitis. 2. Wall thickening in the nondistended stomach. 3. Additional findings as described above. Dictated and Authenticated by: Tarun Pollard MD. Ordering:JORDIN Elam MD
[2020-06-16 08:38] VITALS: BP 122/70; PULSE 85; RESP 18; TEMP 37; O2SAT 100
[2020-06-16] MEDS: Vancomycin 125 MG CAP PO ×3 (09:10→19:36)
[2020-06-16 09:22] VITALS: BP 122/70; PULSE 85; RESP 16; TEMP 37; O2SAT 100
[2020-06-16 09:32] VITALS: BP 122/77; PULSE 86; RESP 18; TEMP 36.8; O2SAT 99
[2020-06-16] MEDS: Heparin 5,000 UNITS/ML VIAL 5000 UNITS SC ×2 (09:47→16:02)
[2020-06-16] MEDS: Normal Saline 1,000 ML 75 ML IV (09:48)
[2020-06-16] MEDS: Cholestyramine/Aspartame PKT 1 EACH PO ×2 (10:33→18:13)
--- NOTE | 2020-06-16 11:42 | W.PM.HP.N ---
Date of service: 06/16/20 Time of Service: 11:42 Assessment and Plan Assessment and plan (1) Pancolitis: Start date: 06/16/20 Start time: 12:08 Status: Acute Assessment and plan: Found on imaging. Morphine for pain Cdiff positive. multiple bouts of diarrhea overnight. Started on vancomycin, however given second reoccurence will start on dificid, not available until tomorrow. Clears advance as tolerated. Questrian for diarrhea (2) Diarrhea: Start date: 06/16/20 Start time: 12:09 Status: Acute Assessment and plan: From Cdiff as above Qualifiers: Diarrhea type: infectious Qualified Code(s): A09 - Infectious gastroenteritis and colitis, unspecified (3) History of Clostridioides difficile colitis: Start date: 06/16/20 Start time: 12:10 Status: Acute Assessment and plan: Recently finished second course of antibiotics for 1st reoccurrence of cdiff This is second reoccurrence. (4) Hypokalemia: Start date: 06/16/20 Start time: 12:10 Status: Acute Assessment and plan: In setting of diarrhea. Replete with PO and monitor. (5) DVT prophylaxis: Start date: 06/16/20 Start time: 12:11 Status: Acute Assessment and plan: Heparin subcu Above case discussed with Dr. Lopes who is in agreement. History of Present Illness History of Present Illness Chief Complaint: Cdiff colitis Narrative: 69 y.o female with PMH, HLD, prediabetes presents to [facility] emergency department with abdominal pain onset Wednesday. She was recently admitted on 05/26 for cdiff colitis prior to that admission she was seen On May 08, the patient presented with 2 days of frequent mucous stools along with dizziness and fever to 100.8. A CT scan was done which showed colitis and diverticulitis. Stool studies including C. difficile screen were ordered, but the patient was not able to give a stool sample. She was sent home on antibiotics a Bactrim rather than ciprofloxacin due to her allergy. Studies to come back later showing negative Hemoccult and negative stool pathogen PCR. She was then admitted on 05/26 for worsening abd pain, with positive cdiff. She was discharged home on vanco and flagyl, she finished this course on Wednesday, now presents last night to the ED with worsening abdominal pain since Wednesday and diarrhea onset yesterday. Labs in the ED with WBC elevated at 12.44, potassium 3.2. Stool collected in the ED positive for cdiff. Given second reoccurrence will admit patient for IV hydration, deficid. Will start oral vanco at this time as deficid is not available until tomorrow. No abdominal pain at this time, Imaging revealing for pancolitis. Will be admitted to m/s for further management. Review of Systems All systems reviewed & are unremarkable except as noted in HPI and below PFSH Medical History (Updated 06/16/20 @ 12:11 by Aura Greco NP) Benign paroxysmal positional vertigo Hyperlipidemia Osteoarthritis Other cervical disc degeneration, unspecified cervical region Prediabetes Vitamin D deficiency Surgical History History of appendectomy History of delivery History of knee surgery History of laparoscopic cholecystectomy Family History Mother Heart disease Father Prostate cancer Social History Smoking/Tobacco Use Status: Never Alcohol Intake: current Alcohol Intake frequency: 0-2 drinks per day Alcohol type: wine Drug use: Never Household members: spouse Number of Children: 1 number of grandchildren: 2 Communication Needs: Language Barriers current occupation: Retired from [employer]) Pets and animals: No Current gender identity: female What is your relationship status?: How often do you attend scientology or jewish services?: 4 or more times per year Do you belong to any clubs or organized social groups?: no Panel score (0-1 are the most socially isolated patients): 2 What type of physical activity do you participate in: none Seatbelt use: always Do you feel safe at home: Yes Do you feel safe in your relationship?: Yes Victim of physical abuse: No Victim of emotional abuse: No Victim of sexual abuse: No Meds Home Medications and Allergies Home Medications Medication Instructions Recorded Confirmed Type ascorbate calcium (vitamin C) 500 500 mg PO DAILY 02/26/20 06/16/20 History mg tablet cholecalciferol (vitamin D3) 50 50 mcg PO DAILY 02/26/20 06/16/20 History mcg (2,000 unit) capsule coenzyme Q10 75 mg capsule 75 mg PO DAILY 02/26/20 06/16/20 History garlic 300 mg PO DAILY 02/26/20 06/16/20 History vitamin B complex 1 tab PO DAILY 02/26/20 06/16/20 History L. acidophilus,casei,rhamnosus 1 cap PO DAILY #14 cap 05/28/20 06/16/20 Rx [Bio-K plus] Allergies Allergy/AdvReac Type Severity Reaction Status Date / Time ciprofloxacin [From Cipro] Allergy Intermediate vomiting Verified 06/16/20 05:06 bug bites AdvReac Intermediate swelling Uncoded 06/16/20 05:06 Exam Narrative Exam Narrative: Const: Healthy appearing elderly female, sitting up in bed. Pain minimal Eyes: PERRLA, EOMI Neck: no lymphedema, goiter Chest: atraumatic, normocephalic Resp: LSC to all black, able to speak full sentences on RA Cardio: Regular rate and rhythm no ectopic beats or murmur appreciated. GI: abd soft, tender to LLQ with palpation. BS x4 Skin: intact Neuro: AAOx3 Extrem: no clubbing cyanosis, or edema Psych: appropriate thought process. Cooperative AAOx3 Results Labs Result diagrams: 06/16/20 05:45 06/16/20 05:45 Labs: Laboratory Results - last 24 hr 06/16/20 06/16/20 05:45 05:45 WBC 12.44 H RBC 4.52 Hgb 13.4 Hct 40.4 MCV 89.4 MCH 29.6 MCHC 33.2 RDW 13.5 Plt Count 267 D MPV 9.8 Immature Gran % 0.5 Neutrophils % 84.1 Lymphocytes % 7.0 Monocytes % 8.0 Eosinophils % 0.3 Basophils % 0.1 Nucleated RBC % 0 Absolute Neutrophils 10.46 H Absolute Lymphocytes 0.87 L Absolute Monocytes 1.00 H Absolute Eosinophils 0.04 Absolute Basophils 0.01 Sodium 139 Potassium 3.2 L Chloride 105 Carbon Dioxide 23.0 Anion Gap 11.0 BUN 12 Creatinine 0.89 Estimated GFR/1.73 m2 >= 60.00 Glucose 131 H Calcium 8.9 Magnesium 2.0 Total Bilirubin 1.0 AST 23 ALT 52 Alkaline Phosphatase 96 Total Protein 6.8 Albumin 3.3 L Last Vital Signs Temp 36.8 C 06/16/20 09:32 Pulse 86 06/16/20 09:32 Resp 18 06/16/20 09:32 BP 122/77 06/16/20 09:32 Pulse Ox 99 06/16/20 09:32 COVID-19 Screening Have you,or household,traveled outside [place] in last 14 days?: No Had IN PERSON contact w/suspected or confirmed C-19 person: No
[2020-06-16] MEDS: MORPHine 2 MG/ML SYR IVP ×2 (12:13→15:20)
[2020-06-16] MEDS: Potassium Chloride 20 MEQ TABCR 40 MEQ PO (12:13)
[2020-06-16 15:22] VITALS: BP 128/74; PULSE 72; RESP 18; TEMP 36.7; O2SAT 99
[2020-06-16] MEDS: metroNIDAZOLE 500 MG/100 ML BAG 100 MG IVPB (17:53)
[2020-06-16 23:28] VITALS: BP 106/68; PULSE 79; RESP 18; TEMP 36.6; O2SAT 99
[2020-06-17] MEDS: Heparin 5,000 UNITS/ML VIAL 5000 UNITS SC ×2 (00:13→07:55)
[2020-06-17] MEDS: Normal Saline 1,000 ML 75 ML IV (00:13)
[2020-06-17] MEDS: metroNIDAZOLE 500 MG/100 ML BAG 100 MG IVPB ×2 (01:30→09:48)
[2020-06-17 05:04] VITALS: BP 112/73; PULSE 78; RESP 18; TEMP 37.4; O2SAT 99
[2020-06-17 07:23] LABS: Abs Immature Grans 0.02 10^3/uL (0.0-0.06); Absolute Basophil Count 0.01 10^3/uL (0.0-0.2); Absolute Eosinophil Count 0.05 10^3/uL (0.0-0.7); Absolute Lymphocyte Count 0.99 10^3/uL (1.2-3.4); Absolute Monocyte Count 0.57 10^3/uL (0.1-0.8); Absolute Neutrophil Count 3.64 10^3/uL (1.2-6.7); Basophils % 0.2; Eosinophils % 0.9; HCT 34.4 % (36.0-46.0); HGB 11.6 g/dL (11.2-15.7); Immature Grans % 0.4; Lymphocytes % 18.8; MCH 29.7 pg (27.0-33.0); MCHC 33.7 % (32.0-36.0); MCV 88.2 fL (80-95); MPV 10.2 fL (8.0-11.0); Monocytes % 10.8; Neutrophils % 68.9; Nucleated RBC 0 %; Platelet Count 226 10^3/uL (130-400); RDW 13.7 % (11.7-14.6); RDW-SD 44.3 fL; WBC 5.28 10^3/uL (4.4-10.8)
[2020-06-17 07:41] LABS: Anion Gap 7.8 mmol/L (3-11); BUN 5 mg/dL (7-18); CO2 24.2 mmol/L (21.0-32.0); CREATININE 0.68 mg/dL (0.55-1.02); Calcium 8.7 mg/dL (8.5-10.1); Chloride 109 mmol/L (98-107); Glucose 99 mg/dL (74-106); Potassium 3.8 mmol/L (3.5-5.1); Sodium 141 mmol/L (136-145)
[2020-06-17 07:49] VITALS: BP 102/63; PULSE 72; RESP 16; TEMP 36.8; O2SAT 99
[2020-06-17] MEDS: Ascorbic Acid 500 MG TAB PO (07:55)
[2020-06-17] MEDS: Cholecalciferol (Vitamin D3) 1,000 UNIT TAB 2000 UNITS PO (07:55)
[2020-06-17 08:56] LABS: COVID-19 RT-PCR UVMMC Result Negative (Negative)
--- NOTE | 2020-06-17 09:06 | INITIAL_ITS ---
- If Service Date Differs Date of service: 06/17/20 Time of Service: 11:11 Care Management Initial Assess REASON FOR HOSPITALIZATION:: Colitis, CDIFF PAST MEDICAL HISTORY/PAST SURGICAL HISTORY:: Medical History . Benign paroxysmal positional vertigo (Acute). Hyperlipidemia (Acute). Osteoarthritis (Chronic). Other cervical disc degeneration, unspecified cervical region (Acute). Prediabetes (Acute). Vitamin D deficiency (Acute). Surgical History . History of appendectomy (Chronic). History of delivery (Chronic). History of knee surgery (Acute). History of laparoscopic cholecystectomy (Acute) PREVIOUS FUNCTIONAL STATUS/SOCIAL/FAMILY SUPPORTS:: Shelly lives in [place] with her , Otf. They have split their time between [place] and [place] since she retired from the [employer]. Their children are grown up, and they have two grandchildren that she is very proud of. She is independent at baseline. CURRENT FUNCTIONAL STATUS:: Shelly is readying for discharge. She is pleasant in interaction and forthcoming with information. ADVANCE DIRECTIVES:: None on file. Has patient been provided with info about the portal/API?: No Did the patient sign up for the portal?: No CODE STATUS:: Full Code INSURANCE COVERAGE / FINANCIAL ISSUES:: [facility]/ [facility]- [facility] CURRENT HOME/COMMUNITY SERVICES/EQUIPMENT:: No current equipment or services in the community. PRIMARY CARE PHYSICIAN:: Esme Saini POTENTIAL DISCHARGE NEEDS:: Evaluations for further needs, follow up appointment s. PATIENT/FAMILY EDUCATION NEEDS:: Review discharge instructions, discuss Ask Me Three. ANTICIPATED BARRIERS TO DISCHARGE:: None identified at this time. TRANSPORTATION:: Via private vehicle with her . PLAN:: Shelly will return home when medically cleared. She will require new prescription for Deficid to treat Cdiff, per provider. Due to out of area insurance that will likely require prior-authorization she will be discharged on Vanco and Zosyn until medication can be obtained. CM faxed referral to [facility], and then to the [facility]. She will follow up with her PCP and discharge plan of care. She will transport home via private vehicle with her .
--- NOTE | 2020-06-17 09:25 | DSE_ITS ---
Date of service: 06/17/20 Time of Service: : DS: Diagnosis Discharge Diagnosis (1) Pancolitis: Start date: 06/17/20 Start time: Status: Acute Asessment and Plan: Found on CT with pain to abdomen, improved today. Feels better. Cdiff positive, second recurrence. Finished dose of vaco and flagyl last Wednesday, presenting to ED with worsening abdominal pain and diarrhea. Ideally would like to treat with fidaxomicin, however insurance is requiring pre-authorization and could be very costly, therefore will treat with vancomycin pulsed-taper regimen 125 mg orally 4 times daily for 10 to 14 days, then 125 mg orally twice daily for 7 days, then 125 mg orally once daily for 7 days, then 125 mg orally every 2 or 3 days for 2 to 8 weeks, If she gets authorized can switch to fidaxomicin po x 10 day Follow up with GI Continue probioitc for at least 3 months Continue daily yogurts. (2) Diarrhea: Start date: 06/17/20 Start time: : Status: Acute Asessment and Plan: Improving with questrian as above (3) History of Clostridioides difficile colitis: Start date: 06/17/20 Start time: : Status: Acute Asessment and Plan: Second reoccurrence. as above (4) Hypokalemia: Start date: 06/17/20 Start time: :38 Status: Resolved Asessment and Plan: Resolved with supplemental repeletion above case discussed with Dr. Lopes who is in agreement. Discharge Plan Disposition Patient Disposition: HOME Condition: Improving Discharge Details Reason For Visit: COLITIS, CDIFF Admit Date/Time: 06/16/20 08:24 Admit Provider: Michael Lopes Attending Provider: Michael Lopes Primary Care Provider: Tucker Hurtado [facility] Course Hospital Course: 69 y.o female with PMH, HLD, prediabetes presents to [facility] emergency department with abdominal pain onset Wednesday. She was recently admitted on 05/26 for cdiff colitis prior to that admission she was seen On May 08, the patient presented with 2 days of frequent mucous stools along with dizziness and fever to 100.8. A CT scan was done which showed colitis and diverticulitis. Stool studies including C. difficile screen were ordered, but the patient was not able to give a stool sample. She was sent home on antibiotics a Bactrim rather than ciprofloxacin due to her allergy. Studies to come back later showing negative Hemoccult and negative stool pathogen PCR. She was then admitted on 05/26 for worsening abd pain, with positive cdiff. She was discharged home on vanco and flagyl, she finished this course on Wednesday, now presents yesterday to the ED with worsening abdominal pain since Wednesday and diarrhea onset yesterday. Labs in the ED with WBC elevated at 12.44, potassium 3.2. Stool collected in the ED positive for cdiff. Given second reoccurrence will admit patient for IV hydration. Today she has no abdominal pain, tolerating diet, feeling better, diarrhea improved, she did have positive PCR. Ideally she would be started on dificid and go home on this medication, however due to cost and pre authorization will start dose of vanco and continue tapered pulse, if patient does get authorized she should be switched to this medication. In the future she is someone who would benefit from prophylactic treatment for cdiff when on any antibiotics. She denies pain, tolerating diet. She will be discharged home on PO vanco, follow up with PCP in 1 week and she should follow up with GI at [facility]. Home Meds and New Rx's Prescriptions: New Prevalite 4 gram Powder In Packet 1 ea PO 1000,1900 Qty: 30 RF: 0 tramadol 50 mg tablet 50 mg PO Q6H PRNQty: 10 RF: 0 Continued vitamin B complex [B Complex-Vitamin B12] Tablet 1 tab PO DAILY RF: 0 garlic Tablet 300 mg PO DAILY RF: 0 ascorbate calcium (vitamin C) 500 mg tablet 500 mg PO DAILY RF: 0 cholecalciferol (vitamin D3) 50 mcg (2,000 unit) capsule 50 mcg PO DAILY RF: 0 Ultra CoQ10 75 mg capsule 75 mg PO DAILY RF: 0 Bio-K plus 50 billion cell Capsule,Delayed Release(Dr/Ec) 1 cap PO DAILY Qty: 14 RF: 0 Discharge Instructions Instructions: C Diff (Clostridium Difficile) Infection (DC) Additional Instructions: 125 mg orally 4 times daily for 10 to 14 days, then 125 mg orally twice daily for 7 days, then 125 mg orally once daily for 7 days, then 125 mg orally every 2 or 3 days for 2 to 8 weeks, Take questrian as needed twice a day Increase diet as tolerated, if pain starts when increasing diet resume clears Eat a yogurt daily Take probiotic for at least three month Follow up with PCP in 1 week Follow up with GI Referrals: GASTROENTEROLOGY,[facility] [OTHER] - Activity:: Activity as Tolerated Equipment/Supplies:: No Equipment Needed Diet:: As Tolerated Discharge Orders Discharge Orders: Discharge Order (Routine); Ordered 06/17/20 Ordered By: Aura Greco DS: Summary Status at Discharge Functional status at discharge: independent ambulation Overall status at discharge: patient is back to baseline Mental Status: mental status grossly normal Speech and Movement: speech and movement normal Mood: congruent mood Affect: normal affect Exam Narrative Exam Narrative: Const: Healthy appearing elderly female, sitting up in bed. Pain minimal Eyes: PERRLA, EOMI Neck: no lymphedema, goiter Chest: atraumatic, normocephalic Resp: LSC to all black, able to speak full sentences on RA Cardio: Regular rate and rhythm no ectopic beats or murmur appreciated. GI: abd soft, tender to LLQ with palpation. BS x4 Skin: intact Neuro: AAOx3 Extrem: no clubbing cyanosis, or edema Psych: appropriate thought process. Cooperative AAOx3 Psych Mental Status: mental status grossly normal Speech and Movement: speech and movement normal Mood: congruent mood Affect: normal affect DS: Data Vitals/I&O Vitals and I&O: Vital Signs Temperature 36.8 C 06/17/20 07:49 Temperature Source Tympanic 06/17/20 07:49 Pulse 72 06/17/20 07:49 Pulse Rhythm Regular 06/17/20 00:36 Respiratory Rate 16 06/17/20 07:49 Respiratory Effort 06/17/20 00:36 Respiratory Depth Normal 06/17/20 00:36 Respiratory Pattern Normal 06/17/20 00:36 Blood Pressure 102/63 06/17/20 07:49 Pulse Oximetry 99 06/17/20 07:49 Oxygen Delivery Method Room Air 06/17/20 07:49 Oxygen Flow Rate 0 06/17/20 07:49 Pain Level 2 06/17/20 07:49 Intake & Output 06/16/20 06/16/20 06/17/20 11:59 23:59 11:59 Intake Total 1000 / 2650 1650 / 2650 Output Total 400 / 400 Balance 600 / 2250 1650 / 2250 Weight 57.153 kg Intake: IV 1000 / 2100 1100 / 2100 Oral 550 / 550 Output: Urine 300 / 300 Urine/Stool Mix 100 / 100 Other: Urine Color Yellow Yellow Stool Size Small Stool Characteristics Liquid Brown Voiding Methods Toilet Toilet # Bowel Movements 1 Data Completed and Pending Completed studies during hospitalization [Text1]: COMPARISON: CT ABDOMEN PELVIS W 05/26/2020 1:34 AM FINDINGS: Lungs: Interstitial prominence and trace dependent airspace disease. Liver: No focal hepatic mass. Gallbladder and bile ducts: Status post cholecystectomy and mild biliary ductal dilatation. Pancreas: Mild pancreatic ductal dilatation without focal mass. Spleen: No splenomegaly. Adrenals: Unremarkable adrenals. Kidneys and ureters: 3 mm right renal cyst. No hydronephrosis. Lobulated right renal morphology. Stomach and bowel: Diffuse wall thickening in the rectum and colon, in a pattern of pancolitis. Wall thickening in the nondistended stomach. Appendix: Appendix not visualized. Intraperitoneal space: No significant free fluid. Vasculature: Normal caliber of the abdominal aorta. Lymph nodes: No pathologically enlarged lymph nodes. Bladder: Normal bladder morphology. Reproductive: Unremarkable as visualized. Bones/joints: Mild scoliosis. Degenerative change, disc bulging, and vacuum discs. Soft tissues: Calcification at the gluteal muscle attachment site. IMPRESSION: 1. Diffuse wall thickening in the rectum and colon, in a pattern of pancolitis. 2. Wall thickening in the nondistended stomach. 3. Additional findings as described above. Dictated and Authenticated by: Tarun Pollard MD. Labs on day of discharge: Labs from last 24 hours 06/17/20 06/17/20 06/16/20 06:03 06:03 08:29 WBC 5.28 D RBC 3.90 L Hgb 11.6 Hct 34.4 L MCV 88.2 MCH 29.7 MCHC 33.7 RDW 13.7 Plt Count 226 MPV 10.2 Immature Gran % 0.4 Neutrophils % 68.9 Lymphocytes % 18.8 Monocytes % 10.8 Eosinophils % 0.9 Basophils % 0.2 Nucleated RBC % 0 Absolute Neutrophils 3.64 Absolute Lymphocytes 0.99 L Absolute Monocytes 0.57 Absolute Eosinophils 0.05 Absolute Basophils 0.01 Sodium 141 Potassium 3.8 Chloride 109 H Carbon Dioxide 24.2 Anion Gap 7.8 BUN 5 L Creatinine 0.68 Estimated GFR/1.73 m2 >= 60.00 Glucose 99 Calcium 8.7 COVID-19 PCR Negative Nasopharyn COVID-19 PCR Not Applicable Ref Test Perform Site [facility] lab [facility] Medical History (Updated 06/17/20 @ 09:38 by Aura Greco NP) Benign paroxysmal positional vertigo Hyperlipidemia Osteoarthritis Other cervical disc degeneration, unspecified cervical region Prediabetes Vitamin D deficiency Surgical History History of appendectomy History of delivery History of knee surgery History of laparoscopic cholecystectomy Family History Mother Heart disease Father Prostate cancer Social History Smoking/Tobacco Use Status: Never Alcohol Intake: current Alcohol Intake frequency: 0-2 drinks per day Alcohol type: wine Drug use: Never Household members: spouse Number of Children: 1 number of grandchildren: 2 Communication Needs: Language Barriers current occupation: Retired from [employer]) Pets and animals: No Current gender identity: female What is your relationship status?: How often do you attend restorationist or scientologist services?: 4 or more times per year Do you belong to any clubs or organized social groups?: no Panel score (0-1 are the most socially isolated patients): 2 What type of physical activity do you participate in: none Seatbelt use: always Do you feel safe at home: Yes Do you feel safe in your relationship?: Yes Victim of physical abuse: No Victim of emotional abuse: No Victim of sexual abuse: No
[2020-06-17] MEDS: Fidaxomicin 200 MG TAB PO (09:48)
[2020-06-17] MEDS: Cholestyramine/Aspartame PKT 1 EACH PO (10:44)
--- NOTE | 2020-07-22 15:40 | CMPROGNOTE_ITS ---
Care Management Progress Note CM rec'd call from [employer], requesting Aura Greco's license number. CM provided the number, hammer mill operator reported medicine was approved and would be delivered in 3-5 days.
--- NOTE | 2020-07-22 15:40 | PDOC.CMPRO ---
Care Management Progress Note CM rec'd call from [employer] Patient Assistance, requesting Aura Greco's license number. CM provided the number, bag press operator reported medicine was approved and would be delivered in 3-5 days.
== END 2020-06-17 14:20 | disposition home or self-care (01) | DRG 373 ==
LOC: ER 09:04 → MS 09:26
PROVIDERS: Emergency Medicine; Nurse Practitioner Family; Admitting Provider Family Medicine; Emergency Provider Physician Assistant; PCP Family Medicine; Visit Provider Family Medicine
DX: A04.71 Enterocolitis due to Clostridium difficile, recurrent (principal); E87.6 Hypokalemia; E78.5 Hyperlipidemia, unspecified; R73.03 Prediabetes; M19.90 Unspecified osteoarthritis, unspecified site; E55.9 Vitamin D deficiency, unspecified; M50.30 Other cervical disc degeneration, unspecified cervical region
CPT/HCPCS: 36415; 36592; 80048; 80053; 90686; 96361; 96374; 99223; 99239; 99285; U0003; 74177; 83735; 85025; 87324; J1644; J2270; J3490

== ENCOUNTER 2020-10-18 02:59 | Outpatient (CLI) | payer MEDICARE, SELFPAY ==
--- NOTE | 2020-10-18 06:45 | DI.CT_ITS ---
EXAM: CT ABDOMEN PELVIS W CLINICAL HISTORY: H/O C. diff, L sided pain without diarrhea,ABD PAIN,R10.9 TECHNIQUE: Imaging Protocol: Axial computed tomography images with coronal and sagittal reformatted images were created and reviewed CONTRAST MATERIAL: Intravenous: Omnipaque 350 Contrast volume:100 mL Oral: Yes COMPARISON: CT CT ABDOMEN PELVIS W from 06/16/2020 FINDINGS: ABDOMEN: Lung Bases: Normal where visualized. Calcified granuloma in the right lung base. Liver: Normal density. No measurable mass. Portal, Superior Mesenteric, and Splenic Veins: Unremarkable. Gallbladder and Biliary Tract: Status post cholecystectomy. No biliary ductal dilatation. Pancreas: Normal density, no abnormal calcifications or inflammatory process. Spleen: Normal. Adrenals: No masses seen. Kidneys: Mild right renal cortical atrophy. No radiodense stones or obstructive uropathy. Small cyst in the superior pole of the right kidney. No further follow-up is recommended. Abdominal Aorta: Abdominal portion non-dilated. Bowel: No obstruction or bowel wall thickening. No evidence of appendicitis. Diverticulosis of the s igmoid colon but no evidence of acute diverticulitis. Peritoneal Cavity: No ascites, collection or mesenteric inflammatory response. No free air. Lymph Nodes: Within normal limits. Bones: Within normal limits for the patient's age. Soft Tissues: Unremarkable. PELVIS: Bladder: Symmetric distention, no gross wall thickening. Reproductive Organs: Unremarkable as visualized. Lymph Nodes: Within normal limits. Bones: Within normal limits for the patient's age. IMPRESSION: 1. No acute abdominal or pelvic process. 2. Diverticulosis of the sigmoid colon but no evidence of acute diverticulitis. 3. Status post cholecystectomy. RADIATION DOSE DELIVERED: 704.68mGy.cm Total DLP DATA REPOSITORY: All CT scans at this facility are submitted to the National Radiology Data Registry (NRDR) Dose Index Registry (DIR) with the [employer] (ACR). RADIATION OPTIMIZATION: All CT scans at this facility use at least one of these dose optimization te chniques: automated exposure control; mA and/or kV adjustment per patient size (includes targeted exa ms where dose is matched to clinical indication); or iterative reconstruction.
[2020-10-18] MEDS: Omnipaque 350 MG/ML 50 ML BTL PO (08:42)
[2020-10-18 08:43] LABS: CREATININE 0.97 mg/dL (0.55-1.02); Estimated GFR 56.45 (mL/min/1.73m2)
[2020-10-18] MEDS: Omnipaque 350 MG/ML 100 ML BTL IJ (10:10)
[2020-10-18] MEDS: Normal Saline Flush 10 ML SYR IVP (10:11)
[2020-10-18] MEDS: Normal Saline - Diluent 50 ML VIAL IV (10:11)
== END 2020-10-18 03:19 ==
PROVIDERS: PCP Family Medicine; Visit Provider Family Medicine
DX: K57.30 Diverticulosis of large intestine without perforation or abscess without bleeding (principal); Z90.49 Acquired absence of other specified parts of digestive tract; R10.9 Unspecified abdominal pain
CPT/HCPCS: 74177; 82565; J3490; Q9967

== ENCOUNTER 2021-03-03 11:01 | Emergency (ER) | payer MEDICARE, SELFPAY ==
[2021-03-03 11:20] VITALS: BP 118/88; PULSE 75; RESP 16; TEMP 36.6; O2SAT 97
--- NOTE | 2021-03-03 11:30 | DI.RAD_ITS ---
Exam(s) XR PORTABLE CHEST AP EXAM: XR PORTABLE CHEST AP CLINICAL HISTORY: home test + covid TECHNIQUE: 2D digital imaging was performed. COMPARISON: No exams were available for comparison FINDINGS: MEDIASTINUM: Normal. HEART: Normal. PULMONARY VASCULATURE: Normal. LUNGS: No infiltrates. PLEURAL SPACE: No pleural effusion or pneumothorax. BONE:Within normal limits for the patient's age. OTHER FINDINGS:Normal. IMPRESSION: No acute pulmonary findings. DATA REPOSITORY: RADIATION DOSE DELIVERED:
--- NOTE | 2021-03-03 13:03 | W.ED.GENAD ---
Discharge Plan Disposition Patient Disposition: HOME Condition: Stable Discharge Details Clinical Impression: Cough Primary Care Provider: Tucker Hurtado ED Provider: Zia Cummings Home Meds and New Rx's Prescriptions: Continued vitamin B complex [B Complex-Vitamin B12] Tablet 1 tab PO DAILY RF: 0 garlic Tablet 300 mg PO DAILY RF: 0 ascorbate calcium (vitamin C) 500 mg tablet 500 mg PO DAILY RF: 0 cholecalciferol (vitamin D3) 50 mcg (2,000 unit) capsule 50 mcg PO DAILY RF: 0 Ultra CoQ10 75 mg capsule 75 mg PO DAILY RF: 0 vitamin B complex Capsule 1 cap PO DAILY RF: 0 vitamin E 200 unit capsule 200 unit PO DAILY RF: 0 valacyclovir 500 mg tablet 500 mg PO BID PRNRF: 0 omeprazole 20 mg capsule,delayed release(DR/EC) 20 mg PO DAILY Qty: 90 RF: 3 meclizine 25 mg tablet 25 mg PO TID PRN (Reason: dizziness) Qty: 90 RF: 0 Bio-K plus 50 billion cell Capsule,Delayed Release(Dr/Ec) 1 cap PO DAILY Qty: 14 RF: 0 Discharge Instructions Instructions: Acute Cough (ED) Additional Instructions: Chest x-ray is unremarkable. Vital signs here in the ER are stable, pulse 75, no evidence of a fever, O2 sats are 97% on room air. I am giving you a pulse oximeter, I would like you to check your oxygen levels and if your oxygen level is consistently below 90 I do recommend return to the ER. Please watch for new or worsening symptoms and return to the ER for any concerns. Your Covid test is pending, this typically results in the next 2-3 days. Given you had a home Covid test that was positive, I recommend quarantining until your test returns. If it is negative there is no longer a need for quarantine but if it is positive you should quarantine until you are asymptomatic. I do recommend contacting your primary care provider today or tomorrow to make them aware of your ER visit and need for outpatient reevaluation. Discharge Data Discharge Date/Time-TO BE ENTERED AT DEPARTURE: 03/03/21 13:25 Medical Decision Making 70-year-old female who reports feeling ill on Wednesday although better now, presents requesting a chest x-ray and Covid swab. She had a [id number] Covid test yesterday that was positive although she is fully vaccinated. Clinically she appears well, nontoxic, no respiratory distress, speaking in full sentences. She is hemodynamically stable, blood pressure 118/88 pulse 75 respirations 16 afebrile, O2 sat 97% on room air. Will obtain a one-view portable chest x-ray and obtain a Covid test, I see no clear indication for additional laboratory testing. Patient is comfortable this plan. Chest x-ray read by radiology as negative No evidence of any respiratory compromise. Covid test pending. Patient understands she will quarantine until the test is resulted, symptom is negative she can return to no quarantine. Although the test is positive she will need to quarantine longer. She was given a pulse oximeter to use at home to monitor oxygen, instructed to return to the ER for new or worsening symptoms, or if her O2 sat is consistently below 90. Otherwise she will contact her primary care provider to discuss her ongoing symptoms and need for outpatient reevaluation. Medical Records Medical records reviewed: Yes I reviewed the patient's medical records. Imaging Data Radiologic Study: Attestation: I personally reviewed and interpreted this imaging study as follows: Imaging: X-Ray Radiologist's impression: Chest x-ray negative HPI General Mode of arrival: ambulatory. Date/Time Provider Initiated Documentation: 03/03/21 11:30. Limitations to Documentation: no limitations. Information obtained by: patient. HPI Narrative: This is a 70-year-old female, past medical history that includes vertigo, osteoarthritis, GERD, presenting to the ER requesting a chest x-ray and a Covid test. Patient states that on Wednesday she developed a dry cough, felt fatigued and feverish although temperature taken and no documented fever. She took a [id number] Covid test at home yesterday, was positive, wants confirmation because she is fully vaccinated. Patient reports that she feels dramatically improved compared to Wednesday. She is essentially asymptomatic at this time. Denies fever, headache, chest pain, shortness of breath, productive cough, abdominal pain, nausea, vomiting, dysuria, skin rash. Reports nasal congestion and mild dry cough. Related Data Home Medications Medication Instructions Recorded Confirmed ascorbate calcium (vitamin C) 500 500 mg PO DAILY 02/26/20 10/07/20 mg tablet cholecalciferol (vitamin D3) 50 50 mcg PO DAILY 02/26/20 10/07/20 mcg (2,000 unit) capsule coenzyme Q10 75 mg capsule 75 mg PO DAILY 02/26/20 03/03/21 garlic 300 mg PO DAILY 02/26/20 03/03/21 vitamin B complex 1 tab PO DAILY 02/26/20 03/03/21 Bio-K plus 1 cap PO DAILY #14 cap 05/28/20 08/30/20 vitamin B complex 1 cap PO DAILY 10/07/20 03/03/21 vitamin E 200 unit capsule 200 unit PO DAILY 10/07/20 03/03/21 meclizine 25 mg tablet 25 mg PO TID PRN #90 tab 12/19/20 03/03/21 omeprazole 20 mg capsule,delayed 20 mg PO DAILY #90 cap 12/19/20 03/03/21 release valacyclovir 500 mg tablet 500 mg PO BID PRN tab 12/19/20 03/03/21 Previous Rx's Medication Instructions Recorded Bio-K plus 1 cap PO DAILY #14 cap 05/28/20 meclizine 25 mg tablet 25 mg PO TID PRN #90 tab 12/19/20 omeprazole 20 mg capsule,delayed 20 mg PO DAILY #90 cap 12/19/20 release Allergies Allergy/AdvReac Type Severity Reaction Status Date / Time ciprofloxacin [From Cipro] Allergy Intermediate vomiting Verified 03/03/21 11:26 bug bites AdvReac Intermediate swelling Uncoded 03/03/21 11:26 General Stated Complaint: RespSymp ARELY: 3 Review of Systems Constitutional Constitutional: Denies fever(s) and Denies headache(s) ENT Ears, Nose, Mouth, and Throat: Denies headache(s), Denies neck pain and Denies sore throat Cardiovascular Cardiovascular: Denies chest pain and Denies dyspnea Respiratory Respiratory: Reports cough and Denies dyspnea Gastrointestinal Gastrointestinal: Denies abdominal pain, Denies nausea and Denies vomiting Genitourinary Genitourinary: Denies dysuria Musculoskeletal Musculoskeletal: Denies back pain and Denies neck pain Integumentary/Breasts Skin/Breast: Denies rash Neurologic Neurologic: Denies headache(s) [facility] Medical History Benign paroxysmal positional vertigo Genital herpes Hyperlipidemia Osteoarthritis Other cervical disc degeneration, unspecified cervical region Prediabetes Vitamin D deficiency Surgical History History of appendectomy History of delivery History of knee surgery History of laparoscopic cholecystectomy Family History Mother Heart disease Father Prostate cancer Social History Smoking/Tobacco Use Status: Never Second Hand Exposure: No Smoking risk assessment performed?: Yes Alcohol Intake: current Alcohol Intake frequency: 0-2 drinks per day Alcohol type: wine Drug use: Never Caregiver/Support person: No Household members: spouse Housing: house Number of Children: 1 number of grandchildren: 2 Communication Needs: Language Barriers Do you need help understanding health information?: Rarely current occupation: Retired from [employer] Pets and animals: No Sexually active: Yes Do you think of yourself as: straight/heterosexual Current gender identity: female What is your relationship status?: How often do you talk on the phone with friends or family?: once per week How often do you get together with friends or relatives?: twice per week How often do you attend pentecostalism or synagogue services?: 1-3 times per year Do you belong to any clubs or organized social groups?: no Panel score (0-1 are the most socially isolated patients): 2 What type of physical activity do you participate in: none and walking Duration: 60-90 minutes/day Frequency: 5-6 times per week Suzanne/Christianity: Rastafari Special suzanne needs: No Seatbelt use: always Drive intox or ride w/intox pick up and delivery driver: No Do you feel safe at home: Yes Do you feel safe in your relationship?: Yes Victim of physical abuse: No Victim of emotional abuse: No Victim of sexual abuse: No Exam Const General: cooperative, healthy appearing, comfortable and no acute distress Orientation: alert and awake HENMT Head: normal to inspection, normocephalic and atraumatic Ears: external ears normal, TM's normal bilaterally and EAC's normal General nose exam: external nose normal Face and sinus: normal facial exam Mouth: moist mucous membranes Throat: posterior oropharynx normal Eyes General: appearance normal, both eyes and all related structures Conjunctivae: conjunctivae normal Neck Neck: normal visual inspection, full ROM, trachea midline and supple Resp Effort & Inspection: normal respiratory effort and able to speak in complete sentences Auscultation: clear to auscultation bilaterally Cardio Rate: regular rate Rhythm: regular rhythm GI Palpation: soft and nontender Back/Spine/Pelvis Back: No back tenderness Skin General skin exam: no rashes or lesions noted Neuro General: patient alert, patient awake, moves all extremities and no focal motor deficits Cognition: normal cognition Speech: speech normal Gait: normal gait Sensory Exam: no sensory deficits noted Extrem General: normal to inspection, full ROM and capillary refill normal Psych Appearance: grossly normal Mental Status: mental status grossly normal Course Vital Signs Vital signs: Vital Signs Temperature 36.6 C 03/03/21 11:20 Pulse 75 03/03/21 11:20 Respiratory Rate 16 03/03/21 11:20 Blood Pressure 118/88 03/03/21 11:20 Pulse Oximetry 97 03/03/21 11:20 Temperature 36.6 C 03/03/21 11:20 Temperature Source Tympanic 03/03/21 11:20 Pulse 75 03/03/21 11:20 Respiratory Rate 16 03/03/21 11:20 Respiratory Effort Non-Labored 03/03/21 11:28 Respiratory Depth Normal 03/03/21 11:28 Blood Pressure 118/88 03/03/21 11:20 Blood Pressure Position Sitting 03/03/21 11:20 Pulse Oximetry 97 03/03/21 11:20 Oxygen Delivery Method Room Air 03/03/21 11:20 Oxygen Flow Rate 0 03/03/21 11:20 Pain Level 5 03/03/21 11:20
[2021-03-04 16:03] LABS: COVID-19 RT-PCR UVMMC Result Negative (Negative)
== END 2021-03-03 13:25 | disposition home or self-care (01) ==
PROVIDERS: Emergency Provider Physician Assistant; PCP Family Medicine
DX: R05 Cough (principal); Z20.822 Contact with and (suspected) exposure to COVID-19
CPT/HCPCS: 99283; U0003; U0005; 71045; 99282

== ENCOUNTER 2021-05-26 01:49 | Outpatient (CLI) | payer MEDICARE, SELFPAY ==
--- NOTE | 2021-05-26 08:15 | DI.MRI_ITS ---
Exam(s) MR IAC BRAIN WO/W EXAM: MR IAC BRAIN WO/W CLINICAL HISTORY: Imbalance,DIPLOPIA,R26.89,H53.2 TECHNIQUE: Multiplanar multisequence MRI of the brain was performed. CONTRAST MATERIAL: IV Contrast: 11 ML of Dotarem contrast administered. COMPARISON: No exams were available for comparison FINDINGS: VENTRICLES AND EXTRA AXIAL SPACES: Normal in size and morphology for the patient's age. HEMORRHAGE: None. CEREBRAL PARENCHYMA: No focus of restricted diffusion to suggest acute infarct. No space-occupying le ryne identified. There are areas of hyperintense signal scattered in the white matter on the T2 and F LAIR images most consistent with chronic microvascular ischemic change. MIDLINE SHIFT: None. BRAINSTEM/CEREBELLUM: Normal. CALVARIUM: Normal. ENHANCEMENT: No suspicious enhancement identified. VISUALIZED PARANASAL SINUSES/MASTOIDS: Clear. [place] DEE-NI' OF BELLE: Normal flow void. PITUITARY GLAND: Unremarkable. The optic chiasm and infundibulum are unremarkable. No evidence of a suprasellar mass is seen. OTHER FINDINGS: The orbits and retro-orbital soft tissues are unremarkable. IAC/CP ANGLE: The internal auditory canals are within normal limits. The cerebellar pontine angles ar e unremarkable. No enhancing lesions are seen. Visualized portion of the facial nerves appear within normal limits. IMPRESSION: 1. No evidence of an intracranial mass, acute infarct or enhancing lesion. 2. Findings most suggestive of chronic microvascular ischemic disease. DATA REPOSITORY:
[2021-05-26 14:24] LABS: CREATININE 0.9 mg/dL (0.55-1.02)
[2021-05-26] MEDS: Gadoterate meglumine 20 ML VIAL 11 ML IVP (14:47)
== END 2021-05-26 02:09 ==
PROVIDERS: PCP Family Medicine; Visit Provider Otolaryngology
DX: H53.2 Diplopia (principal); R26.89 Other abnormalities of gait and mobility; I25.9 Chronic ischemic heart disease, unspecified
CPT/HCPCS: 70553; 82565

== ENCOUNTER 2021-06-16 01:07 | Outpatient (CLI) | payer MEDICARE, SELFPAY ==
--- NOTE | 2021-06-16 08:30 | DI.RAD_ITS ---
Exam(s) XR CHEST 2V PA LATERAL EXAM: XR CHEST 2V PA LATERAL CLINICAL HISTORY: Non-descript dyspnea on exertion, R06.00. TECHNIQUE: 2D digital imaging was performed. COMPARISON: CR XR PORTABLE CHEST AP from 03/03/2021 FINDINGS: Heart size is normal. The mediastinum is not widened. Hyperinflation again noted but no new infiltrates nor pleural effusions. No pulmonary edema. Slight increased markings in the lingular segment of the left lung are unchanged, probably scarring. IMPRESSION: No acute pulmonary findings.No significant change compared to February 2021. DATA REPOSITORY: RADIATION DOSE DELIVERED:
== END 2021-06-16 01:27 ==
PROVIDERS: PCP Family Medicine; Visit Provider Family Medicine
DX: R06.09 Other forms of dyspnea (principal)
CPT/HCPCS: 71046

== ENCOUNTER 2021-06-16 02:30 | Outpatient (CLI) | payer MEDICARE, SELFPAY ==
[2021-06-16 14:12] LABS: HCT 44.1 % (36.0-46.0); HGB 14.4 g/dL (11.2-15.7); MCH 29.6 pg (27.0-33.0); MCHC 32.7 % (32.0-36.0); MCV 90.6 fL (80-95); MPV 9.9 fL (8.0-11.0); Platelet Count 292 10^3/uL (130-400); RBC 4.87 10^6/uL (3.93-5.22); RDW 12.7 % (11.7-14.6); RDW-SD 42.4 fL
[2021-06-16 14:49] LABS: ALT 34 U/L (14-59); AST 16 U/L (15-37); Albumin 4.1 g/dL (3.4-5.0); Alkaline Phosphatase 94 U/L (46-116); Anion Gap 8.4 mmol/L (3-11); BUN 19 mg/dL (7-18); Bilirubin, Total 0.4 mg/dL (0.2-1.0); CO2 28.6 mmol/L (21.0-32.0); CREATININE 0.8 mg/dL (0.55-1.02); Calcium 9.4 mg/dL (8.5-10.1); Chloride 104 mmol/L (98-107); Glucose 108 mg/dL (74-106); Potassium 4.7 mmol/L (3.5-5.1); Sodium 141 mmol/L (136-145); Total Protein 7.6 g/dL (6.4-8.2)
[2021-06-16 14:54] LABS: NT-proBNP 39 pg/mL (<300)
== END 2021-06-16 02:31 | disposition home or self-care (01) ==
PROVIDERS: PCP Family Medicine; Visit Provider Family Medicine
DX: R06.09 Other forms of dyspnea (principal)
CPT/HCPCS: 36415; 80053; 85027; 71046; 83880

== ENCOUNTER 2021-06-26 04:01 | Outpatient (CLI) | payer MEDICARE, SELFPAY ==
[2021-06-26 13:24] LABS: ESR 5 mm/hr (0-30)
[2021-06-26 13:25] LABS: Abs Immature Grans 0.02 10^3/uL (0.0-0.06); Absolute Basophil Count 0.03 10^3/uL (0.0-0.2); Absolute Eosinophil Count 0.08 10^3/uL (0.0-0.7); Absolute Lymphocyte Count 1.66 10^3/uL (1.2-3.4); Absolute Monocyte Count 0.63 10^3/uL (0.1-0.8); Basophils % 0.5; Eosinophils % 1.4; HGB 13.7 g/dL (11.2-15.7); Immature Grans % 0.3; MCH 30.1 pg (27.0-33.0); MCHC 33.4 % (32.0-36.0); MCV 90.1 fL (80-95); MPV 9.5 fL (8.0-11.0); Monocytes % 10.6; Neutrophils % 59.2; Nucleated RBC 0 %; Platelet Count 262 10^3/uL (130-400); RBC 4.55 10^6/uL (3.93-5.22); RDW 12.8 % (11.7-14.6); RDW-SD 42.1 fL; WBC 5.92 10^3/uL (4.4-10.8)
[2021-06-26 15:04] LABS: C-Reactive Protein < 0.05 mg/dL (0.0-0.3)
== END 2021-06-26 04:02 | disposition home or self-care (01) ==
LOC: LBO 04:01
PROVIDERS: PCP Family Medicine; Visit Provider Family Medicine
DX: R61 Generalized hyperhidrosis (principal)
CPT/HCPCS: 36415; 85652; 84443; 85025; 86140

== ENCOUNTER 2021-07-19 16:29 | Emergency (ER) | payer MEDICARE, SELFPAY ==
[2021-07-19] VITALS (27 sets, daily range): BP systolic 102–142; BP diastolic 63–84; PULSE 62–87; RESP 12–24; TEMP 36.3–36.4; O2SAT 99–100
--- NOTE | 2021-07-19 16:30 | RT.EKG_ITS ---
APPROVED REPORT Exam: Resting ECG Reason for Exam: resp. issues Patient Location: E HR:64 bpm ECG Measurements Heart Rate 64 AXIS AZ 172 P 41 QRSd 83 QRS 27 QT 416 T 42 QTc 430 Conclusion Sinus rhythm...normal P axis, V-rate 60- 99. Sinus. No STEMI. I have reviewed and interpreted ECG and agree with software generated interpretation.
--- NOTE | 2021-07-19 16:45 | DI.RAD_ITS ---
Exam(s) XR PORTABLE CHEST AP EXAM: XR PORTABLE CHEST AP CLINICAL HISTORY: sob,: sided pain TECHNIQUE: 2D digital imaging was performed. COMPARISON: CR XR CHEST 2V PA LATERAL from 06/16/2021 FINDINGS: LUNGS: Upper lobe fibrotic changes, otherwise clear. No pleural abnormality seen. HEART: Normal. MEDIASTINUM: Normal. BONES: Degenerative changes. IMPRESSION: No acute pulmonary findings. DATA REPOSITORY: RADIATION DOSE DELIVERED:
--- NOTE | 2021-07-19 16:53 | W.ED.GENAD ---
Discharge Plan Disposition Patient Disposition: HOME Condition: Stable Discharge Details Clinical Impression: Pancreatitis Primary Care Provider: Tucker Hurtado ED Provider: Zia Cummings Home Meds and New Rx's Prescriptions: Continued garlic Tablet 300 mg PO DAILY RF: 0 Ultra CoQ10 75 mg capsule 75 mg PO DAILY RF: 0 turmeric root extract 500 mg capsule 500 mg PO DAILY RF: 0 valacyclovir 500 mg tablet 500 mg PO BID PRNRF: 0 omeprazole 20 mg capsule,delayed release(DR/EC) 20 mg PO DAILY Qty: 90 RF: 3 meclizine 25 mg tablet 25 mg PO TID PRN (Reason: dizziness) Qty: 90 RF: 0 Bio-K plus 50 billion cell Capsule,Delayed Release(Dr/Ec) 1 cap PO DAILY Qty: 14 RF: 0 Lactobacillus rhamnosus GG 10 billion cell Capsule 1 cap PO DAILY RF: 0 vitamin B complex Capsule 1 cap PO DAILY RF: 0 cholecalciferol (vitamin D3) 10 mcg (400 unit) Capsule 400 unit PO DAILY RF: 0 Vit C(ascorb.calcium)(mv-mins) 1,000 mg Powder Effervescent In Packet 1,000 packet PO DAILY RF: 0 B12 Active 1,000 mcg Tablet,Chewable 1,000 mcg PO DAILY RF: 0 Discharge Instructions Instructions: Pancreatitis (ED) Additional Instructions: Hydrocodone as directed, this medication may cause drowsiness and/or constipation. You may want to take an [id number] stool softener while on this medication. Avoid drinking your daily wine as this can make your pancreatitis worse. Clear liquid diet, plenty of fluids, advance diet as tolerated. Please watch for new or worsening symptoms and return to the ER for any concerns. Otherwise contact your primary care provider on Wednesday to discuss your ER visit, symptoms, need for outpatient reevaluation. As we discussed, if you begin developing diarrhea then we can test you for C. difficile; however, your examination this evening is not consistent with C. difficile. Discharge Data Discharge Date/Time-TO BE ENTERED AT DEPARTURE: 07/19/21 21:14 Medical Decision Making 70-year-old female presents to the ER complaining of left upper quadrant pain for the past 3 days, at times it is sharp and takes her breath away. Certainly seems to be abdominal pain and not chest pain in nature but given the location I do believe obtaining troponin-EKG, etc. is completely reasonable. She has never had pain. This before but does drink wine nightly. She is concerned exudative but has no diarrhea whatsoever. No change in her bowels. Unless she is able to provide a stool sample but is loose or diarrhea, lab will not test for C. difficile. Will obtain IV access, give IV fluids and obtain screening laboratory values. Clinically patient appears well, nontoxic, abdomen is soft, nonsurgical Laboratory values reveal no ketosis or anemia. Platelet count 277. Given her shortness of breath I did obtain a D-dimer which was normal at 458, will not pursue CTA of the chest. Electrolytes unremarkable, creatinine 0.9 with a GFR greater than 60, glucose 94 magnesium 2.2. Troponin less than 0.05, BNP 40 lipase is 402 Given lipase is elevated, will obtain CT imaging of her abdomen as she has never had pancreatitis before. She is agreeable to awaiting a delta troponin. Repeat troponin remains less than 0.05. Patient remains hemodynamically stable. Awaiting CT imaging CT imaging and chest x-ray unremarkable for emergent process. A minor jejunal enteritis is possible in the right clinical setting. Clinically this does not fit her presentation, likely incidental. Will treat for mild pancreatitis. We discussed not drinking wine at this can cause symptoms. Strict discharge and return precautions were provided. Patient will be given a single take-home pack of hydrocodone. She has no additional questions or concerns and is comfortable this plan. This documentation was generated using [employer] dictation system, please disregard any oddities of phrase or misspellings. Medical Records Medical records reviewed: Yes I reviewed the patient's medical records. Imaging Data Radiologic Study: Attestation: I personally reviewed and interpreted this imaging study as follows: Imaging: X-Ray Radiologist's impression: PROCEDURE INFORMATION: Exam: XR Chest Exam date and time: 07/19/2021 16:59 Age: 70 years old Clinical indication: Other: Sided pain TECHNIQUE: Imaging protocol: XR of the chest. Views: 1 view. COMPARISON: CR XR CHEST 2V PA LATERAL 06/16/2021 13:15 FINDINGS: Lungs: Mild hyperinflation without airspace consolidation. No significant interstitial disease for the degree of inflation. Pleural spaces: No pleural effusion. No pneumothorax. Heart/Mediastinum: No cardiomegaly. Bones/joints: No acute fracture. IMPRESSION: Mild hyperinflation without airspace consolidation. Thank you for allowing us to participate in the care of your patient. Radiologic Study #2: Attestation: I personally reviewed and interpreted this imaging study as follows: Imaging: CT Scan Radiologist's impression: PROCEDURE INFORMATION: Exam: CT Abdomen And Pelvis With Contrast Exam date and time: 07/19/2021 18:27 Age: 70 years old Clinical indication: Pain and abnormal findings; Abnormal lab test; Elevated lipase; Abdominal pain; Localized; Left upper quadrant (luq); Patient HX: Luq pain, elevated lipase TECHNIQUE: Imaging protocol: Computed tomography of the abdomen and pelvis with contrast. COMPARISON: CT ABDOMEN PELVIS W 10/18/2020 10:03 FINDINGS: Lungs: Minimal dependent subsegmental atelectasis. Liver: No hepatic masses. Gallbladder and bile ducts: Cholecystectomy. Typical caliber of the CBD for a post cholecystectomy patient. Pancreas: No ductal dilation. No masses. No evidence of pancreatitis. Spleen: No splenomegaly or focal lesions. Adrenal glands: No mass. Kidneys and ureters: Minor chronic scarring in the right kidney. Benign-appearing renal cysts. No renal masses or hydronephrosis bilaterally. Stomach and bowel: Colonic diverticulosis without diverticulitis. Very minor wall thickening is possible in loops of jejunum. No obstruction. Appendix: No evidence of appendicitis. Intraperitoneal space: No free air. No significant fluid collection. Vasculature: No abdominal aortic aneurysm. Lymph nodes: No significantly enlarged lymph nodes. Urinary bladder: The urinary bladder is distended. No urinary bladder wall thickening. SANTOSNESTOR Preliminary Radiology Report DUST OPERATOR (QA) DISCREPANCY? If there is a discrepancy between the preliminary and final interpretation, please notify [facility] via [email or web address]. If you do not have access to our QA portal, call our QA team at [phone] CONFIDENTIALITY STATEMENT This report is intended only for the use of the referring physician, and only in accordance with law, If you received this in error, call [phone] Page 2 of 2 Reproductive: Unremarkable as visualized. Bones/joints: Degenerative changes in the spine. No acute fracture or subluxation. Soft tissues: No suspicious lesions. IMPRESSION: 1. A minor jejunal enteritis is possible in the right clinical setting. No obstruction. 2. Incidental findings as described. Lab Data Lab results reviewed: Yes I reviewed the patient's lab results. Labs: Laboratory Tests Range/Units 07/19/21 07/19/21 07/19/21 17:09 17:09 17:09 WBC (4.4-10.8) 10^3/uL 5.22 RBC (3.93-5.22) 10^6/uL 4.40 Hgb (11.2-15.7) g/dL 13.2 Hct (36.0-46.0) % 40.3 MCV (80-95) fL 91.6 MCH (27.0-33.0) pg 30.0 MCHC (32.0-36.0) % 32.8 RDW (11.7-14.6) % 12.8 Plt Count (130-400) 10^3/uL 277 MPV (8.0-11.0) fL 9.7 Immature Gran % 0.4 Neutrophils % 47.7 Lymphocytes % 36.6 Monocytes % 12.8 Eosinophils % 1.7 Basophils % 0.8 Nucleated RBC % % 0 Absolute Neutrophils (1.2-6.7) 10^3/uL 2.49 Absolute Lymphocytes (1.2-3.4) 10^3/uL 1.91 Absolute Monocytes (0.1-0.8) 10^3/uL 0.67 Absolute Eosinophils (0.0-0.7) 10^3/uL 0.09 Absolute Basophils (0.0-0.2) 10^3/uL 0.04 PT (9.3-11.0) sec 9.8 INR (0.9-1.1) 1.0 APTT (21.0-27.5) sec 21.9 D-Dimer (<500) ng/mlFEU 458 Sodium (136-145) mmol/L 142 Potassium (3.5-5.1) mmol/L 4.5 Chloride (98-107) mmol/L 105 Carbon Dioxide (21.0-32.0) mmol/L 30.5 Anion Gap (3-11) mmol/L 6.5 BUN (7-18) mg/dL 19 H Creatinine (0.55-1.02) mg/dL 0.9 Estimated GFR/1.73 m2 (mL/min/1.73m2) >= 60.00 Glucose (74-106) mg/dL 94 Calcium (8.5-10.1) mg/dL 9.0 Magnesium (1.8-2.4) mg/dL 2.2 Total Bilirubin (0.2-1.0) mg/dL 0.4 AST (15-37) U/L 14 L ALT (14-59) U/L 31 Alkaline Phosphatase (46-116) U/L 78 Troponin I (<0.06) ng/mL < 0.05 NT-Pro-B Natriuret Pep (<300) pg/mL 40 Total Protein (6.4-8.2) g/dL 6.7 Albumin (3.4-5.0) g/dL 3.7 Lipase (73-393) U/L Urine Color (Yellow) Urine Clarity (Clear) Urine pH (5-8) Ur Specific [place] (1.005-1.025) Urine Protein (Negative) mg/dL Urine Ketones (Negative) mg/dL Urine Blood (Negative) Urine Nitrite (Negative) Urine Bilirubin (Negative) Urine Urobilinogen (Up TO 0.2) EU/dL Ur Leukocyte Esterase (Negative) Urine RBC (0-2) HPF Urine WBC (0-5) HPF Ur Epithelial Cells (Negative) HPF Urine Crystals (Negative) HPF Urine Bacteria (Negative) HPF Urine Mucus (Negative) Ur Culture Indicated? Urine Glucose (Negative) mg/dL Ethyl Alcohol (<10) mg/dL COVID-19 Source SARS-CoV-2 (PCR) (Negative) Range/Units 07/19/21 07/19/21 07/19/21 17:09 17:09 17:30 WBC (4.4-10.8) 10^3/uL RBC (3.93-5.22) 10^6/uL Hgb (11.2-15.7) g/dL Hct (36.0-46.0) % MCV (80-95) fL MCH (27.0-33.0) pg MCHC (32.0-36.0) % RDW (11.7-14.6) % Plt Count (130-400) 10^3/uL MPV (8.0-11.0) fL Immature Gran % Neutrophils % Lymphocytes % Monocytes % Eosinophils % Basophils % Nucleated RBC % % Absolute Neutrophils (1.2-6.7) 10^3/uL Absolute Lymphocytes (1.2-3.4) 10^3/uL Absolute Monocytes (0.1-0.8) 10^3/uL Absolute Eosinophils (0.0-0.7) 10^3/uL Absolute Basophils (0.0-0.2) 10^3/uL PT (9.3-11.0) sec INR (0.9-1.1) APTT (21.0-27.5) sec D-Dimer (<500) ng/mlFEU Sodium (136-145) mmol/L Potassium (3.5-5.1) mmol/L Chloride (98-107) mmol/L Carbon Dioxide (21.0-32.0) mmol/L Anion Gap (3-11) mmol/L BUN (7-18) mg/dL Creatinine (0.55-1.02) mg/dL Estimated GFR/1.73 m2 (mL/min/1.73m2) Glucose (74-106) mg/dL Calcium (8.5-10.1) mg/dL Magnesium (1.8-2.4) mg/dL Total Bilirubin (0.2-1.0) mg/dL AST (15-37) U/L ALT (14-59) U/L Alkaline Phosphatase (46-116) U/L Troponin I (<0.06) ng/mL NT-Pro-B Natriuret Pep (<300) pg/mL Total Protein (6.4-8.2) g/dL Albumin (3.4-5.0) g/dL Lipase (73-393) U/L 462 H Urine Color (Yellow) Urine Clarity (Clear) Urine pH (5-8) Ur Specific [place] (1.005-1.025) Urine Protein (Negative) mg/dL Urine Ketones (Negative) mg/dL Urine Blood (Negative) Urine Nitrite (Negative) Urine Bilirubin (Negative) Urine Urobilinogen (Up TO 0.2) EU/dL Ur Leukocyte Esterase (Negative) Urine RBC (0-2) HPF Urine WBC (0-5) HPF Ur Epithelial Cells (Negative) HPF Urine Crystals (Negative) HPF Urine Bacteria (Negative) HPF Urine Mucus (Negative) Ur Culture Indicated? Urine Glucose (Negative) mg/dL Ethyl Alcohol (<10) mg/dL < 3.0 COVID-19 Source Nasal/Nares SARS-CoV-2 (PCR) (Negative) Negative Range/Units 07/19/21 07/19/21 18:48 20:21 WBC (4.4-10.8) 10^3/uL RBC (3.93-5.22) 10^6/uL Hgb (11.2-15.7) g/dL Hct (36.0-46.0) % MCV (80-95) fL MCH (27.0-33.0) pg MCHC (32.0-36.0) % RDW (11.7-14.6) % Plt Count (130-400) 10^3/uL MPV (8.0-11.0) fL Immature Gran % Neutrophils % Lymphocytes % Monocytes % Eosinophils % Basophils % Nucleated RBC % % Absolute Neutrophils (1.2-6.7) 10^3/uL Absolute Lymphocytes (1.2-3.4) 10^3/uL Absolute Monocytes (0.1-0.8) 10^3/uL Absolute Eosinophils (0.0-0.7) 10^3/uL Absolute Basophils (0.0-0.2) 10^3/uL PT (9.3-11.0) sec INR (0.9-1.1) APTT (21.0-27.5) sec D-Dimer (<500) ng/mlFEU Sodium (136-145) mmol/L Potassium (3.5-5.1) mmol/L Chloride (98-107) mmol/L Carbon Dioxide (21.0-32.0) mmol/L Anion Gap (3-11) mmol/L BUN (7-18) mg/dL Creatinine (0.55-1.02) mg/dL Estimated GFR/1.73 m2 (mL/min/1.73m2) Glucose (74-106) mg/dL Calcium (8.5-10.1) mg/dL Magnesium (1.8-2.4) mg/dL Total Bilirubin (0.2-1.0) mg/dL AST (15-37) U/L ALT (14-59) U/L Alkaline Phosphatase (46-116) U/L Troponin I (<0.06) ng/mL < 0.05 NT-Pro-B Natriuret Pep (<300) pg/mL Total Protein (6.4-8.2) g/dL Albumin (3.4-5.0) g/dL Lipase (73-393) U/L Urine Color (Yellow) Yellow Urine Clarity (Clear) Clear Urine pH (5-8) 6.0 Ur Specific [place] (1.005-1.025) 1.010 Urine Protein (Negative) mg/dL Negative Urine Ketones (Negative) mg/dL Negative Urine Blood (Negative) Trace-intact H Urine Nitrite (Negative) Negative Urine Bilirubin (Negative) Negative Urine Urobilinogen (Up TO 0.2) EU/dL 0.2 Ur Leukocyte Esterase (Negative) Negative Urine RBC (0-2) HPF 0-2 Urine WBC (0-5) HPF 0-2 Ur Epithelial Cells (Negative) HPF Few Urine Crystals (Negative) HPF Negative Urine Bacteria (Negative) HPF Negative Urine Mucus (Negative) Negative Ur Culture Indicated? No Urine Glucose (Negative) mg/dL Negative Ethyl Alcohol (<10) mg/dL COVID-19 Source SARS-CoV-2 (PCR) (Negative) ECG Data Attestation: I personally reviewed and interpreted this ECG (s) as follows: Interpretation: Please see official report by Dr. Willett. Sinus rhythm, ventricular rate 64, no STEMI. HPI General Mode of arrival: ambulatory. Date/Time Provider Initiated Documentation: 07/19/21 16:52. Limitations to Documentation: no limitations. Information obtained by: patient. HPI Narrative: This is a 70-year-old female, past medical history of vertigo, hyperlipidemia, what she describes as prediabetes, GERD, C. difficile, presenting to the ER today stating she has had 3-day history of left upper abdominal pain, sharp, denies any nausea or vomiting. She denies fever, chest pain, diarrhea, constipation black tarry stools or bright red blood in her stools. She is specifically concerned that she may have C. difficile as she has had C. difficile in the past. She states when the pain is sharp it makes her sweaty and takes her breath away. She does drink wine nightly at least 1 glass. She denies recent illness or sick contact. Has not taken any medication for her symptoms Related Data Home Medications Medication Instructions Recorded Confirmed coenzyme Q10 75 mg capsule 75 mg PO DAILY 02/26/20 06/30/21 garlic 300 mg PO DAILY 02/26/20 07/19/21 Bio-K plus 1 cap PO DAILY #14 cap 05/28/20 06/30/21 meclizine 25 mg tablet 25 mg PO TID PRN #90 tab 12/19/20 06/30/21 omeprazole 20 mg capsule,delayed 20 mg PO DAILY #90 cap 12/19/20 06/30/21 release valacyclovir 500 mg tablet 500 mg PO BID PRN tab 12/19/20 06/30/21 turmeric root extract 500 mg 500 mg PO DAILY 03/14/21 07/19/21 capsule B12 Active 1,000 mcg PO DAILY 07/19/21 07/19/21 Lactobacillus rhamnosus GG 1 cap PO DAILY 07/19/21 07/19/21 Vit C(ascorb.calcium)(mv-mins) 1,000 packet PO DAILY 07/19/21 07/19/21 cholecalciferol (vitamin D3) 400 unit PO DAILY 07/19/21 07/19/21 vitamin B complex 1 cap PO DAILY 07/19/21 07/19/21 Previous Rx's Medication Instructions Recorded Bio-K plus 1 cap PO DAILY #14 cap 05/28/20 meclizine 25 mg tablet 25 mg PO TID PRN #90 tab 12/19/20 omeprazole 20 mg capsule,delayed 20 mg PO DAILY #90 cap 12/19/20 release Allergies Allergy/AdvReac Type Severity Reaction Status Date / Time ciprofloxacin [From Cipro] Allergy Intermediate vomiting Verified 07/19/21 16:40 bug bites AdvReac Intermediate swelling Uncoded 07/19/21 16:40 General Stated Complaint: RespSymp ARELY: 3 Review of Systems Constitutional Constitutional: Denies fatigue, Denies fever(s), Denies headache(s) and Denies weakness ENT Ears, Nose, Mouth, and Throat: Denies headache(s) and Denies neck pain Cardiovascular Cardiovascular: Denies chest pain and Reports dyspnea Respiratory Respiratory: Denies cough and Reports dyspnea Gastrointestinal Gastrointestinal: Reports abdominal pain, Denies melena, Denies hematochezia, Denies constipation, Denies diarrhea, Denies nausea and Denies vomiting Genitourinary Genitourinary: Denies dysuria Musculoskeletal Musculoskeletal: Denies back pain and Denies neck pain Integumentary/Breasts Skin/Breast: Denies rash Neurologic Neurologic: Denies headache(s) and Denies weakness Endocrine Endocrine: Denies fatigue Hematologic/Lymphatic Hematologic/Lymphatic: Denies easy bleeding and Denies easy bruising [facility] Medical History Benign paroxysmal positional vertigo Genital herpes Hyperlipidemia Osteoarthritis Other cervical disc degeneration, unspecified cervical region Prediabetes Sensorineural hearing loss (SNHL) of left ear with unrestricted hearing of right ear Vitamin D deficiency Surgical History History of appendectomy History of delivery History of knee surgery History of laparoscopic cholecystectomy Family History Mother Heart disease Father Prostate cancer Social History Smoking/Tobacco Use Status: Never Second Hand Exposure: No Smoking risk assessment performed?: Yes Alcohol Intake: current Alcohol Intake frequency: 0-2 drinks per day Alcohol type: wine Drug use: Never Substance use type: does not use Caregiver/Support person: No Household members: spouse Housing: house Number of Children: 1 number of grandchildren: 2 Communication Needs: Language Barriers Do you need help understanding health information?: Rarely current occupation: [place] [employer] Pets and animals: No Sexually active: Yes Do you think of yourself as: straight/heterosexual Current gender identity: female What is your relationship status?: How often do you talk on the phone with friends or family?: once per week How often do you get together with friends or relatives?: twice per week How often do you attend rastafari or scientologist services?: 1-3 times per year Do you belong to any clubs or organized social groups?: no Panel score (0-1 are the most socially isolated patients): 2 What type of physical activity do you participate in: none and walking Duration: 60-90 minutes/day Frequency: 5-6 times per week Suzanne/Yarsani: [employer] Special suzanne needs: No Seatbelt use: always Drive intox or ride w/intox regional dedicated truck driver: No Do you feel safe at home: Yes Do you feel safe in your relationship?: Yes Victim of physical abuse: No Victim of emotional abuse: No Victim of sexual abuse: No Exam Const General: cooperative, healthy appearing, comfortable and no acute distress Orientation: alert, awake and oriented x3 HENMT Head: normal to inspection, normocephalic and atraumatic Face and sinus: normal facial exam Mouth: moist mucous membranes Eyes General: appearance normal, both eyes and all related structures Conjunctivae: conjunctivae normal Neck Neck: normal visual inspection, full ROM, trachea midline and supple Resp Effort & Inspection: normal respiratory effort and able to speak in complete sentences Auscultation: clear to auscultation bilaterally Cardio Rate: regular rate Rhythm: regular rhythm GI Inspection: normal to inspection Palpation: soft, not firm, no guarding, no pulsatile masses and tender in the LUQ (mild) Auscultation: normal bowel sounds Back/Spine/Pelvis Back: No back tenderness Skin General skin exam: no rashes or lesions noted Neuro General: patient alert, patient awake, moves all extremities and no focal motor deficits Cognition: normal cognition Speech: speech normal Gait: normal gait Sensory Exam: no sensory deficits noted Extrem General: normal to inspection, full ROM and capillary refill normal Psych Appearance: grossly normal Mental Status: mental status grossly normal Course Vital Signs Vital signs: Vital Signs Temperature 36.3 C L 07/19/21 16:36 Pulse 73 07/19/21 16:36 Respiratory Rate 18 07/19/21 16:36 Blood Pressure 135/69 07/19/21 16:36 Pulse Oximetry 99 07/19/21 16:36 Temperature 36.3 C L 07/19/21 16:36 Temperature Source Temporal Artery Scan 07/19/21 16:36 Pulse 73 07/19/21 16:36 Respiratory Rate 18 07/19/21 16:36 Respiratory Effort 07/19/21 16:48 Blood Pressure 135/69 07/19/21 16:36 Blood Pressure Position Sitting 07/19/21 16:36 Pulse Oximetry 99 07/19/21 16:36 Oxygen Delivery Method Room Air 07/19/21 16:36 Oxygen Flow Rate 0 07/19/21 16:36
[2021-07-19 17:16] LABS: Abs Immature Grans 0.02 10^3/uL (0.0-0.06); Absolute Basophil Count 0.04 10^3/uL (0.0-0.2); Absolute Eosinophil Count 0.09 10^3/uL (0.0-0.7); Absolute Lymphocyte Count 1.91 10^3/uL (1.2-3.4); Absolute Monocyte Count 0.67 10^3/uL (0.1-0.8); Absolute Neutrophil Count 2.49 10^3/uL (1.2-6.7); Basophils % 0.8; Eosinophils % 1.7; HCT 40.3 % (36.0-46.0); HGB 13.2 g/dL (11.2-15.7); Immature Grans % 0.4; Lymphocytes % 36.6; MCHC 32.8 % (32.0-36.0); MCV 91.6 fL (80-95); MPV 9.7 fL (8.0-11.0); Monocytes % 12.8; Neutrophils % 47.7; Nucleated RBC 0 %; Platelet Count 277 10^3/uL (130-400); RDW 12.8 % (11.7-14.6); RDW-SD 42.5 fL; WBC 5.22 10^3/uL (4.4-10.8)
[2021-07-19 17:31] LABS: PTT Activated 21.9 sec (21.0-27.5); Prothrombin Time 9.8 sec (9.3-11.0)
[2021-07-19 17:36] LABS: Lipase 462 U/L (73-393)
[2021-07-19 17:46] LABS: Source Nasal/Nares
[2021-07-19 17:48] LABS: D-Dimer 458 ng/mlFEU (<500)
[2021-07-19 17:49] LABS: ALT 31 U/L (14-59); AST 14 U/L (15-37); Albumin 3.7 g/dL (3.4-5.0); Alkaline Phosphatase 78 U/L (46-116); Anion Gap 6.5 mmol/L (3-11); BUN 19 mg/dL (7-18); Bilirubin, Total 0.4 mg/dL (0.2-1.0); CO2 30.5 mmol/L (21.0-32.0); CREATININE 0.9 mg/dL (0.55-1.02); Chloride 105 mmol/L (98-107); Glucose 94 mg/dL (74-106); Magnesium 2.2 mg/dL (1.8-2.4); NT-proBNP 40 pg/mL (<300); Potassium 4.5 mmol/L (3.5-5.1); Sodium 142 mmol/L (136-145); Total Protein 6.7 g/dL (6.4-8.2); Troponin I < 0.05 ng/mL (<0.06)
[2021-07-19 18:08] LABS: ETHANOL BLOOD < 3.0 mg/dL (<10)
--- NOTE | 2021-07-19 18:15 | DI.CT_ITS ---
Exam(s) CT ABDOMEN PELVIS W EXAM: CT ABDOMEN PELVIS W CLINICAL HISTORY: Luq pain, elevated lipase. TECHNIQUE: Imaging Protocol: Axial computed tomography images with coronal and sagittal reformatted images were created and reviewed CONTRAST MATERIAL: Intravenous: Omnipaque 350 Contrast volume:84 ml Oral: no COMPARISON: CT CT ABDOMEN PELVIS W from 10/18/2020 FINDINGS: ABDOMEN: Lung Bases: Normal where visualized. Liver: Normal density. No measurable mass. Gallbladder and biliary tract: Status post cholecystectomy no radiodense calculus or dilation. Pancreas: Normal density, no abnormal calcifications or inflammatory process. Spleen: Normal. Kidneys: Mild right renal scarring. Stable tiny right renal cyst.. No radiodense stones or obstruct sue uropathy. No masses seen. Adrenal glands: No masses seen. Abdominal Aorta: Abdominal portion non-dilated. PELVIS: Bladder: No gross wall thickening. No calculi.No focal mass. Bowel: Diverticulosis without evidence of diverticulitis. Moderate stool. No obstruction or bowel w all thickening. Peritoneal cavity: No ascites, collection or mesenteric inflammatory response. Bones: Within normal limits for age. Reproductive organs: Within normal limits. Lymph nodes: Unremarkable. Impression: No CT evidence of pancreatitis. Diverticulosis without evidence of diverticulitis. RADIATION DOSE DELIVERED: 646.15mGy.cm Total DLP DATA REPOSITORY: All CT scans at this facility are submitted to the National Radiology Data Registry (NRDR) Dose Index Registry (DIR) with the [employer] (ACR). RADIATION OPTIMIZATION: All CT scans at this facility use at least one of these dose optimization te chniques: automated exposure control; mA and/or kV adjustment per patient size (includes targeted exa ms where dose is matched to clinical indication); or iterative reconstruction.
[2021-07-19 18:36] LABS: COVID-19 PCR Negative (Negative)
[2021-07-19 18:52] LABS: Bilirubin Negative (Negative); Blood Trace-intact (Negative); Clarity Clear (Clear); Glucose Negative (Negative); Ketones Negative (Negative); Leukocyte Esterase Negative (Negative); Nitrite Negative (Negative); Urobilinogen 0.2 EU/dL (Up TO 0.2)
[2021-07-19 19:01] LABS: Bacteria Negative HPF (Negative); C & S Indicated? No; Crystals Negative HPF (Negative); Epithelial Cells Few HPF (Negative); Mucus Negative (Negative); RBC 0-2 HPF (0-2); WBC 0-2 HPF (0-5)
--- NOTE | 2021-07-19 19:26 | DI.VRAD_ITS ---
PROCEDURE INFORMATION: Exam: XR Chest Exam date and time: 07/19/2021 16:59 Age: 70 years old Clinical indication: Other: Sided pain TECHNIQUE: Imaging protocol: XR of the chest. Views: 1 view. COMPARISON: CR XR CHEST 2V PA LATERAL 06/16/2021 13:15 FINDINGS: Lungs: Mild hyperinflation without airspace consolidation. No significant interstitial disease for the degree of inflation. Pleural spaces: No pleural effusion. No pneumothorax. Heart/Mediastinum: No cardiomegaly. Bones/joints: No acute fracture. IMPRESSION: Mild hyperinflation without airspace consolidation. Dictated and Authenticated by: Imelda Luu MD. Ordering:JODIE Lizarraga MD
[2021-07-19] MEDS: Omnipaque 350 MG/ML 100 ML BTL IJ (20:17)
[2021-07-19] MEDS: Normal Saline - Diluent 50 ML VIAL IV (20:18)
--- NOTE | 2021-07-19 20:27 | DI.VRAD_ITS ---
PROCEDURE INFORMATION: Exam: CT Abdomen And Pelvis With Contrast Exam date and time: 07/19/2021 18:27 Age: 70 years old Clinical indication: Pain and abnormal findings; Abnormal lab test; Elevated lipase; Abdominal pain; Localized; Left upper quadrant (luq); Patient HX: Luq pain, elevated lipase TECHNIQUE: Imaging protocol: Computed tomography of the abdomen and pelvis with contrast. COMPARISON: CT ABDOMEN PELVIS W 10/18/2020 10:03 FINDINGS: Lungs: Minimal dependent subsegmental atelectasis. Liver: No hepatic masses. Gallbladder and bile ducts: Cholecystectomy. Typical caliber of the CBD for a post cholecystectomy patient. Pancreas: No ductal dilation. No masses. No evidence of pancreatitis. Spleen: No splenomegaly or focal lesions. Adrenal glands: No mass. Kidneys and ureters: Minor chronic scarring in the right kidney. Benign-appearing renal cysts. No renal masses or hydronephrosis bilaterally. Stomach and bowel: Colonic diverticulosis without diverticulitis. Very minor wall thickening is possible in loops of jejunum. No obstruction. Appendix: No evidence of appendicitis. Intraperitoneal space: No free air. No significant fluid collection. Vasculature: No abdominal aortic aneurysm. Lymph nodes: No significantly enlarged lymph nodes. Urinary bladder: The urinary bladder is distended. No urinary bladder wall thickening. Reproductive: Unremarkable as visualized. Bones/joints: Degenerative changes in the spine. No acute fracture or subluxation. Soft tissues: No suspicious lesions. IMPRESSION: 1. A minor jejunal enteritis is possible in the right clinical setting. No obstruction. 2. Incidental findings as described. Dictated and Authenticated by: Imelda Luu MD. Ordering:JODIE Lizarraga MD
[2021-07-19 20:45] LABS: Troponin I < 0.05 ng/mL (<0.06)
== END 2021-07-19 21:14 | disposition home or self-care (01) ==
PROVIDERS: Emergency Provider Physician Assistant; PCP Family Medicine
DX: K85.90 Acute pancreatitis without necrosis or infection, unspecified (principal); R06.02 Shortness of breath
CPT/HCPCS: 36415; 80053; 83690; 87635; 93005; 99285; 71045; 74177; 80320; 81003; 81015; 83735; 83880; 84484; 85025; 85379; 85610; 85730; 93010; J3490

== ENCOUNTER 2023-03-26 12:36 | Emergency (ER) | payer MEDICARE, SELFPAY ==
[2023-03-26 12:44] VITALS: BP 114/63; PULSE 73; RESP 18; TEMP 36.6; O2SAT 99
--- NOTE | 2023-03-26 12:45 | DI.CT_ITS ---
Exam(s) CT ABDOMEN PELVIS W EXAM: CT ABDOMEN PELVIS W CLINICAL HISTORY: right flank pain. TECHNIQUE: Imaging Protocol: Axial computed tomography images with coronal and sagittal reformatted images were created and reviewed CONTRAST MATERIAL: Intravenous: Omnipaque 350 Contrast volume:100 ml Oral: no COMPARISON: CT CT ABDOMEN PELVIS W from 07/19/2021 FINDINGS: ABDOMEN: Lung Bases: Normal where visualized. Liver: Normal density. No measurable mass. Gallbladder and biliary tract: Status post cholecystectomy. No radiodense calculus or dilation. Pancreas: Normal density, no abnormal calcifications or inflammatory process. Spleen: Normal. Kidneys: Normal size, contour and axis. No radiodense stones or obstructive uropathy. No suspicious m asses seen. Adrenal glands: No masses seen. Abdominal Aorta: Abdominal portion non-dilated. Soft tissues: Unremarkable. PELVIS: Bladder: No gross wall thickening. No calculi.No focal mass. Bowel: Redundant sigmoid with prominent diverticulosis. Diverticulitis. Large quantity of stool. N o obstruction. No bowel wall thickening. Appendix not seen. No right lower quadrant inflammation. Peritoneal cavity: No ascites, collection or mesenteric inflammatory response. Bones: Degenerative changes and mild scoliosis in the spine. Reproductive organs: Within normal limits. Lymph nodes: Unremarkable. Impression: No acute abnormality. Diverticulosis. No evidence of diverticulitis. RADIATION DOSE DELIVERED: 761.66mGy.cm Total DLP DATA REPOSITORY: All CT scans at this facility are submitted to the National Radiology Data Registry (NRDR) Dose Index Registry (DIR) with the [employer] (ACR). RADIATION OPTIMIZATION: All CT scans at this facility use at least one of these dose optimization te chniques: automated exposure control; mA and/or kV adjustment per patient size (includes targeted exa ms where dose is matched to clinical indication); or iterative reconstruction.
[2023-03-26 13:36] LABS: Abs Immature Grans 0.02 10^3/uL (0.0-0.06); Absolute Basophil Count 0.04 10^3/uL (0.0-0.2); Absolute Eosinophil Count 0.14 10^3/uL (0.0-0.7); Absolute Monocyte Count 0.39 10^3/uL (0.1-0.8); Absolute Neutrophil Count 3.43 10^3/uL (1.2-6.7); Basophils % 0.7; Eosinophils % 2.6; HGB 13.5 g/dL (11.2-15.7); Immature Grans % 0.4; Lymphocytes % 25.8; MCH 30.1 pg (27.0-33.0); MCHC 33.8 % (32.0-36.0); MCV 89 fL (80-95); MPV 9.9 fL (8.0-11.0); Monocytes % 7.2; Neutrophils % 63.3; Platelet Count 263 10^3/uL (130-400); RBC 4.49 10^6/uL (3.93-5.22); RDW 13.1 % (11.7-14.6); RDW-SD 42.7 fL; WBC 5.42 10^3/uL (4.4-10.8)
[2023-03-26 13:53] LABS: ALT 47 U/L (14-59); AST 25 U/L (15-37); Albumin 3.4 g/dL (3.4-5.0); Alkaline Phosphatase 88 U/L (46-116); Anion Gap 9.4 mmol/L (3-11); BUN 16 mg/dL (7-18); Bilirubin, Total 0.5 mg/dL (0.2-1.0); CO2 26.6 mmol/L (21.0-32.0); Calcium 8.7 mg/dL (8.5-10.1); Chloride 104 mmol/L (98-107); Estimated GFR 59.12 (mL/min/1.73m2); Glucose 198 mg/dL (74-106); Lipase 59 U/L (16-77); Potassium 3.8 mmol/L (3.5-5.1); Sodium 140 mmol/L (136-145); Total Protein 6.9 g/dL (6.4-8.2)
[2023-03-26 14:26] LABS: Bilirubin Negative (Negative); Blood Negative (Negative); Clarity Clear (Clear); Glucose Negative (Negative); Ketones Negative (Negative); Leukocyte Esterase Trace (Negative); Nitrite Negative (Negative); Specific Gravity 1.015 (1.005-1.025); Urobilinogen 0.2 mg/dL (Up to 0.2)
[2023-03-26] MEDS: Normal Saline Flush 10 ML SYR IVP (14:30)
[2023-03-26] MEDS: Normal Saline - Diluent 50 ML VIAL IJ (14:34)
[2023-03-26 14:35] LABS: RBC 0-2 HPF (0-2)
[2023-03-26] MEDS: Omnipaque 350 MG/ML 100 ML BTL IJ (14:35)
[2023-03-26 14:36] LABS: Bacteria Negative HPF (Negative); C & S Indicated? No; Crystals Negative HPF (Negative); Epithelial Cells Rare HPF (Negative); Mucus Negative (Negative)
--- NOTE | 2023-03-26 15:00 | W.ED.GENAD ---
Discharge Plan Disposition Patient Disposition: Home Discharge Details Clinical Impression: Abdominal pain, Acute hyperglycemia, Increased stool volume Primary Care Provider: Tucker Hurtado ED Provider: Anna Lemon Home Meds and New Rx's Prescriptions: New docusate sodium [Colace] 100 mg capsule 100 mg PO BID Qty: 10 0RF mupirocin 2 % ointment 1 applic topical BID Qty: 15 0RF Continued garlic Tablet 300 mg PO DAILY Ultra CoQ10 75 mg capsule 75 mg PO DAILY valacyclovir 500 mg tablet 500 mg PO BID PRN omeprazole 20 mg capsule,delayed release(DR/EC) 20 mg PO DAILY Qty: 90 3RF meclizine 25 mg tablet 25 mg PO TID PRN (Reason: dizziness) Qty: 90 0RF dicyclomine 10 mg capsule 10 mg PO QID Rx Instructions: as needed for abdominal pain/cramps-note dated 08/14/2021 [facility] Bio-K plus 50 billion cell Capsule,Delayed Release(Dr/Ec) 1 cap PO DAILY Qty: 14 0RF B12 Active 1,000 mcg Tablet,Chewable 1,000 mcg PO DAILY Discharge Instructions Instructions: Abdominal Pain (ED), Diabetic Hyperglycemia (ED) Additional Instructions: follow-up with your primary care physician in 2-3 days for reassessment Your blood sugar is high, this should be rechecked by your doctor, have ordered a hemoglobin A1c for reassessment You have increased stool volume, I recommend taking Colace twice a day for the next 5 or 6 days Please return should you have new or worsening complaints You will need reassessment regarding your abdominal pain, you may need colonoscopy should you have persistent discomfort Return earlier should you have new or worsening complaints this is a point you will need Referrals: Tucker Hurtado DO [Primary Care Provider] - Discharge Data Discharge Date/Time-TO BE ENTERED AT DEPARTURE: 03/26/23 15:27 Medical Decision Making 72-year-old female presents with report of flank pain for the past 2 weeks worsening. Denies any urinary symptoms, nausea, vomiting, diarrhea CT abdomen and pelvis notes a increased stool volume Mild hyperglycemia, A1c actually within normal limits Patient will take Colace for the next several days and reassess Urinalysis and labs are otherwise unremarkable Offered analgesia and fluids, patient has declined She is encouraged to follow-up with her primary care physician in 1 to 2 days for reassessment and to return earlier should she have new or worsening complaints There is no evidence of kidney stone, urinary tract infection, diabetic ketoacidosis based on my clinical assessment Patient certainly could have musculoskeletal back pain, she has no clinical evidence of cauda equina syndrome is ambulatory with steady gait throughout this encounter Return precautions were discussed in detail and patient expressed understanding Stable vitals reviewed HPI General Date/Time Provider Initiated Documentation: 03/26/23 12:49. HPI Narrative: 72-year-old female presents with report of left flank pain for the past 2 weeks. Worsening today which is why she presents. Denies any nausea vomiting or diarrhea. Denies any chest pain or shortness of breath. Denies known exacerbating or alleviating factors Related Data Home Medications Medication Instructions Recorded Confirmed coenzyme Q10 75 mg capsule (Ultra 75 mg PO DAILY 02/26/20 06/30/21 CoQ10) garlic 300 mg PO DAILY 02/26/20 07/19/21 L. acidophilus,casei,rhamnosus 50 1 cap PO DAILY #14 caps 05/28/20 06/30/21 billion cell capsule,delayed release (Bio-K plus) meclizine 25 mg tablet 25 mg PO TID PRN dizziness #90 tabs 12/19/20 06/30/21 omeprazole 20 mg capsule,delayed 20 mg PO DAILY #90 caps 12/19/20 06/30/21 release valacyclovir 500 mg tablet 500 mg PO BID PRN 12/19/20 06/30/21 mecobalamin (vitamin B12) 1,000 1,000 mcg PO DAILY 07/19/21 07/19/21 mcg chewable tablet (B12 Active) dicyclomine 10 mg capsule 10 mg PO QID 08/18/21 docusate sodium 100 mg capsule 100 mg PO BID #10 caps 03/26/23 (Colace) mupirocin 2 % topical ointment 1 applic topical BID #15 grams 03/26/23 Previous Rx's Medication Instructions Recorded L. acidophilus,casei,rhamnosus 50 1 cap PO DAILY #14 caps 05/28/20 billion cell capsule,delayed release (Bio-K plus) meclizine 25 mg tablet 25 mg PO TID PRN dizziness #90 tabs 12/19/20 omeprazole 20 mg capsule,delayed 20 mg PO DAILY #90 caps 03/25/21 release docusate sodium 100 mg capsule 100 mg PO BID #10 caps 03/26/23 (Colace) mupirocin 2 % topical ointment 1 applic topical BID #15 grams 03/26/23 Allergies Allergy/AdvReac Type Severity Reaction Status Date / Time ciprofloxacin [From Cipro] Allergy Intermediate vomiting Verified 07/25/21 14:08 bug bites AdvReac Intermediate swelling Uncoded 07/25/21 14:08 General Stated Complaint: Abd Prob ARELY: 3 PFSH All Active Problems (Updated 03/26/23 @ 15:12 by CONNOR Allen) Abdominal pain (Acute) Acute hyperglycemia (Acute) Increased stool volume (Acute) IBS (irritable bowel syndrome) (Chronic) Diverticulitis large intestine (Acute) Pancreatitis (Chronic) Vestibulopathy (Acute) Sensorineural hearing loss (SNHL) of left ear with unrestricted hearing of right ear (Acute) Vertical diplopia (Acute) Imbalance (Acute) Cough (Acute) Genital herpes (Acute) Abdominal pain (Acute) History of Clostridioides difficile colitis (Acute) Osteoarthritis (Chronic) Other cervical disc degeneration, unspecified cervical region (Acute) Vitamin D deficiency (Acute) Prediabetes (Acute) Hyperlipidemia (Acute) Benign paroxysmal positional vertigo (Acute) Surgical History History of appendectomy History of delivery History of knee surgery History of laparoscopic cholecystectomy Family History Mother Heart disease Father Prostate cancer Social History Smoking/Tobacco Use Status: Never Second Hand Exposure: No Smoking risk assessment performed?: Yes Alcohol Intake: current Alcohol Intake frequency: 0-2 drinks per day Alcohol type: wine Drug use: Never Substance use type: does not use Caregiver/Support person: No Household members: spouse Housing: house Number of Children: 1 number of grandchildren: 2 Communication Needs: Language Barriers Do you need help understanding health information?: Rarely current [place] [employer] Pets and animals: No Sexually active: Yes Do you think of yourself as: straight/heterosexual Current gender identity: female What is your relationship status?: How often do you talk on the phone with friends or family?: once per week How often do you get together with friends or relatives?: twice per week How often do you attend episcopal or hindu services?: 1-3 times per year Do you belong to any clubs or organized social groups?: no Panel score (0-1 are the most socially isolated patients): 2 What type of physical activity do you participate in: none and walking Duration: 60-90 minutes/day Frequency: 5-6 times per week Suzanne/Evangelical: Pentecostal Special suzanne needs: No Seatbelt use: always Drive intox or ride w/intox class a regional drivers: No Do you feel safe at home: Yes Do you feel safe in your relationship?: Yes Victim of physical abuse: No Victim of emotional abuse: No Victim of sexual abuse: No Course Vital Signs Vital signs: Vital Signs Temperature 36.6 C 03/26/23 12:44 Pulse 73 03/26/23 12:44 Respiratory Rate 18 03/26/23 12:44 Blood Pressure 114/63 03/26/23 12:44 Pulse Oximetry 99 03/26/23 12:44 Temperature 36.6 C 03/26/23 12:44 Temperature Source Oral 03/26/23 12:44 Pulse 73 03/26/23 12:44 Respiratory Rate 18 03/26/23 12:44 Respiratory Effort Normal, Non-Labored 03/26/23 12:46 Blood Pressure 114/63 03/26/23 12:44 Blood Pressure Position Sitting 03/26/23 12:44 Pulse Oximetry 99 03/26/23 12:44 Lab/Test Results Lab/Test Results: Laboratory Tests Range/Units 03/26/23 03/26/23 03/26/23 13:25 13:25 14:20 WBC (4.4-10.8) 10^3/uL 5.42 RBC (3.93-5.22) 10^6/uL 4.49 Hgb (11.2-15.7) g/dL 13.5 Hct (36.0-46.0) % 40.0 MCV (80-95) fL 89 MCH (27.0-33.0) pg 30.1 MCHC (32.0-36.0) % 33.8 RDW (11.7-14.6) % 13.1 Plt Count (130-400) 10^3/uL 263 MPV (8.0-11.0) fL 9.9 Immature Gran % 0.4 Neutrophils % 63.3 Lymphocytes % 25.8 Monocytes % 7.2 Eosinophils % 2.6 Basophils % 0.7 Nucleated RBC % (0.0-0.3) % 0.0 Absolute Neutrophils (1.2-6.7) 10^3/uL 3.43 Absolute Lymphocytes (1.2-3.4) 10^3/uL 1.40 Absolute Monocytes (0.1-0.8) 10^3/uL 0.39 Absolute Eosinophils (0.0-0.7) 10^3/uL 0.14 Absolute Basophils (0.0-0.2) 10^3/uL 0.04 Sodium (136-145) mmol/L 140 Potassium (3.5-5.1) mmol/L 3.8 Chloride (98-107) mmol/L 104 Carbon Dioxide (21.0-32.0) mmol/L 26.6 Anion Gap (3-11) mmol/L 9.4 BUN (7-18) mg/dL 16 Creatinine (0.55-1.02) mg/dL 1.0 Est GFR (CKD-EPI 2020) (mL/min/1.73m2) 59.12 Glucose (74-106) mg/dL 198 H Calcium (8.5-10.1) mg/dL 8.7 Total Bilirubin (0.2-1.0) mg/dL 0.5 AST (15-37) U/L 25 ALT (14-59) U/L 47 Alkaline Phosphatase (46-116) U/L 88 Total Protein (6.4-8.2) g/dL 6.9 Albumin (3.4-5.0) g/dL 3.4 Lipase (16-77) U/L 59 Urine Color (Yellow) Yellow Urine Clarity (Clear) Clear Urine pH (5-8) 5.0 Ur Specific [place] (1.005-1.025) 1.015 Urine Protein (Negative) mg/dL Negative Urine Ketones (Negative) mg/dL Negative Urine Blood (Negative) Negative Urine Nitrite (Negative) Negative Urine Bilirubin (Negative) Negative Urine Urobilinogen (Up to 0.2) mg/dL 0.2 Ur Leukocyte Esterase (Negative) Trace H Urine RBC (0-2) HPF 0-2 Urine WBC (0-5) HPF 3-5 Ur Epithelial Cells (Negative) HPF Rare Urine Crystals (Negative) HPF Negative Urine Bacteria (Negative) HPF Negative Urine Mucus (Negative) Negative Ur Culture Indicated? No Urine Glucose (Negative) mg/dL Negative
--- NOTE | 2023-03-26 15:07 | NUR.NOTE ---
Nursing Note: PT needs follow up next week with PCP for hyperglycemia. Margaux, ED
[2023-03-26 15:20] LABS: Hemoglobin A1C 5.8 % (<5.7)
== END 2023-03-26 15:27 | disposition home or self-care (01) ==
PROVIDERS: Emergency Provider Physician Assistant; PCP Family Medicine
DX: R10.9 Unspecified abdominal pain (principal); R73.9 Hyperglycemia, unspecified; R19.5 Other fecal abnormalities
CPT/HCPCS: 36415; 80053; 83690; 99285; 74177; 81003; 81015; 83036; 85025; 99284; J3490

== ENCOUNTER → 2023-06-09 01:24 | Outpatient (CLI) | payer MEDICARE, SELFPAY ==
--- NOTE | 2023-06-09 07:34 | DI.MRI_ITS ---
Exam(s) MR IAC BRAIN WO/W EXAM: MR IAC BRAIN WO/W CLINICAL HISTORY: left vestibulat weakness, L>R SNHL,imblaance,r26.89,h81.90,h90.3 TECHNIQUE: Multiplanar multisequence MRI of the brain was performed. Both noninfused and contrast i nfused sequences were performed. IV Contrast injected was 12 cc Dotarem. COMPARISON: MR MR IAC BRAIN WO/W from 05/26/2021 FINDINGS: CEREBRAL PARENCHYMA: No evidence of intracranial hemorrhage, mass effect nor shift of midline structu re. No extraaxial fluid collections. Ventricles are not enlarged nor shifted. There is no significant focal signal abnormality in the cerebellar hemispheres nor within the gui, m idbrain, and thalami. Periventricular white matter signal abnormality again noted which appears unchanged from April 2021. No new areas of restricted diffusion. DWI: No areas of restricted diffusion to suggest acute ischemic event. SWI: No microhemorrhages evident. There are no ring enhancing lesions in the brain. There is no abnormal meningeal enhancement. IAC'S: No evidence of mass in the cerebellopontine angles. Also no evidence of enhancing intra canal icular mass. The 7th and 8th cranial nerves appear unremarkable within the bilateral internal audito ry canals. Above this level the visualized 5th-trigeminal nerves appear unremarkable. PITUITARY GLAND: No mass nor parasellar abnormality. No obvious abnormality in the cavernous sinuses. FLOW VOIDS: The expected flow void are noted. No evidence of obvious aneurysm nor obvious vascular ma lformation. PARANASAL SINUSES: The visualized paranasal sinuses appear unremarkable. ORBITS: No obvious abnormal findings. IMPRESSION: 1. No significant new intracranial findings on this MRI scan of the brain. 2. No new abnormal enhancing intracranial findings. There are no ring enhancing lesions in the brain and there is no abnormal meningeal enhancement. 3. No evidence of acoustic neuroma-schwannoma. No masses in the cerebellopontine angles nor within the internal auditory canals. 4. Amount of periventricular signal abnormality is unchanged from MRI scan of April 2021 and is mos t probably related to chronic ischemic changes. There is no evidence of restricted diffusion to sugg est acute ischemic event. DATA REPOSITORY:
[2023-06-09] MEDS: Normal Saline Flush 10 ML SYR IVP (11:46)
[2023-06-09] MEDS: Gadoterate meglumine 20 ML SYRINGE 12 ML IVP (11:47)
== END ==
PROVIDERS: PCP Family Medicine; Visit Provider Otolaryngology
DX: H90.3 Sensorineural hearing loss, bilateral; R26.89 Other abnormalities of gait and mobility
CPT/HCPCS: 70553

== ENCOUNTER 2024-07-05 04:46 | Outpatient (CLI) | payer MEDICARE, SELFPAY ==
[2024-07-05 09:52] LABS: ALT 37 U/L (14-59); AST 23 U/L (15-37); Albumin 3.6 g/dL (3.4-5.0); Alkaline Phosphatase 92 U/L (46-116); Anion Gap 8.3 mmol/L (3-11); BUN 17 mg/dL (7-18); Bilirubin, Total 0.77 mg/dL (0.2-1.0); CO2 27.7 mmol/L (21.0-32.0); CREATININE 0.8 mg/dL (0.55-1.02); Calcium 9.2 mg/dL (8.5-10.1); Calculated LDL 161 mg/dL (<100); Chloride 107 mmol/L (98-107); Cholesterol 242 mg/dL (<200); Estimated GFR 76.79 (mL/min/1.73m2); Glucose 108 mg/dL (74-106); HDL Cholesterol 63 mg/dL (40-60); Potassium 4.7 mmol/L (3.5-5.1); Sodium 143 mmol/L (136-145); Total Protein 7.1 g/dL (6.4-8.2); Triglyceride 93 mg/dL (<150)
== END 2024-07-05 04:47 | disposition home or self-care (01) ==
LOC: LBO 04:47
PROVIDERS: PCP Family Medicine; Referring Provider Family Medicine; Visit Provider Family Medicine
DX: E78.5 Hyperlipidemia, unspecified (principal)
CPT/HCPCS: 36415; 80053; 80061

== ENCOUNTER 2025-02-06 13:57 | Outpatient (CLI) | payer MEDICARE, SELFPAY ==
--- NOTE | 2025-02-06 13:45 | DI.RAD_ITS ---
Exam(s) XR SHOULDER RT COMPLETE 2+V EXAM: XR SHOULDER RT COMPLETE 2+V CLINICAL HISTORY: RIGHT SHOULDER PAIN. TECHNIQUE: 2D digital imaging was performed. COMPARISON: No exams were available for comparison FINDINGS: Two views No evidence of fracture or dislocation or abnormal soft tissue calcifications. Mildly decreased suba cromial space height noted. Bone density normal. No osseous lesions. Minimal if any significant degenerative changes are evident in the glenohumeral joint. IMPRESSION: Mild findings as above. DATA REPOSITORY: RADIATION DOSE DELIVERED:
== END 2025-02-06 13:58 | disposition home or self-care (01) ==
LOC: DIORS 14:01
PROVIDERS: PCP Family Medicine; Referring Provider Family Medicine; Visit Provider Student in an Organized Health Care Education/Training Program
DX: M25.511 Pain in right shoulder (principal); M12.811 Other specific arthropathies, not elsewhere classified, right shoulder
CPT/HCPCS: 99214; 73030

== ENCOUNTER 2025-04-16 00:37 | Outpatient (CLI) | payer MEDICARE, SELFPAY ==
--- NOTE | 2025-04-16 07:00 | DI.CT_ITS ---
Exam(s) CT UPPER EXTREMITY RT WO EXAM: CT UPPER EXTREMITY RT WO CLINICAL HISTORY: SURGICAL PLANNING,ROTATOR CUFF ARTHROPATHY,M12.811 TECHNIQUE: Imaging Protocol: Axial computed tomography images with coronal and sagittal reformatted images were created and reviewed. CONTRAST MATERIAL: Noncontrast COMPARISON: CR,XR XR PORTABLE CHEST AP from 07/19/2021 MR MRI SHOULDER WITHOUT CONTRAST (RIGHT) from 11/27/2024 CR XR SHOULDER RT COMPLETE 2+V from 02/06/2025 FINDINGS: Bones: There is no evidence of fracture or dislocation. There are degenerative changes at the undersurface of the acromion. The humeral head is superiorly positioned consistent with chronic rotator cuff tear. There is moderate atrophy of the supraspinatus muscle. There are mild degenerative changes of the AC joint. The glenohumeral joint space is maintained. There is mild spurring at the inferior glenoid. No cellulitic or osteomyelitic changes are identified. No lytic or sclerotic lesions are identified. There are degenerative cystic changes in the humeral head. Soft Tissues: Normal. Visualized lungs: Apical pleural thickening. IMPRESSION: Evidence of chronic rotator cuff tear with moderate supraspinatus atrophy. RADIATION DOSE DELIVERED: 128.42mGy.cm Total DLP DATA REPOSITORY: All CT scans at this facility are submitted to the National Radiology Data Registry (NRDR) Dose Index Registry (DIR) with the [employer] (ACR). RADIATION OPTIMIZATION: All CT scans at this facility use at least one of these dose optimization techniques: automated exposure control; mA and/or kV adjustment per patient size (includes targeted exams where dose is matched to clinical indication); or iterative reconstruction.
== END 2025-04-16 00:57 ==
LOC: DI 00:38
PROVIDERS: PCP Family Medicine; Visit Provider Student in an Organized Health Care Education/Training Program
DX: M12.811 Other specific arthropathies, not elsewhere classified, right shoulder (principal)
CPT/HCPCS: 73200

== ENCOUNTER → 2025-04-18 14:09 | Outpatient (BNVA) | payer MEDICARE, SELFPAY | PROVIDERS: PCP Family Medicine; Referring Provider Family Medicine; Visit Provider Student in an Organized Health Care Education/Training Program | DX: M12.811 Other specific arthropathies, not elsewhere classified, right shoulder (principal) | CPT/HCPCS: 99214 ==

== ENCOUNTER 2025-05-31 06:01 | Day surgery (SDC) | payer MEDICARE, SELFPAY ==
--- NOTE | 2025-05-30 18:58 | W.ANESPRE ---
General Info Date of Service Date Performed: 05/31/25 Height: 5 ft 2 in Weight: 58.513 kg Body Mass Index (BMI): 23.6 Surgical Procedure: Operation Date: 05/31/25 07:40 Proposed Procedure Side Surgeon p Shoulder Reverse Total Arthroplasty, Biceps Tenodesis Right Holden Carvalho MD Meds Allergies and Home Medications Allergies Allergy/AdvReac Type Severity Reaction Status Date / Time ciprofloxacin (From Cipro) Allergy Intermediate vomiting Verified 05/31/25 06:08 bug bites AdvReac Intermediate swelling Uncoded 05/31/25 06:08 Home Medication ?Medication ?Instructions ?Recorded coenzyme Q10 75 mg capsule (Ultra 75 mg PO DAILY 02/26/20 CoQ10) mecobalamin (vitamin B12) 1,000 1,000 mcg PO DAILY 07/19/21 mcg chewable tablet (B12 Active) albuterol (refill) 90 90 mcg inhalation DAILY PRN 04/20/23 mcg/actuation aerosol inhaler fluticasone fur. 100 mcg-umeclid 1 inh inhalation DAILY PRN 04/20/23 62.5 mcg-vilant 25 mcg inhalat.powder (Trelegy Ellipta) blood sugar diagnostic (Blood #100 ea 04/29/23 Glucose Test strips) blood-glucose meter #1 ea 04/29/23 lancets #100 ea 04/29/23 rosuvastatin 5 mg tablet 5 mg PO DAILY #90 tabs 08/10/24 valacyclovir 500 mg tablet 500 mg PO BID PRN outbreaks #20 08/10/24 tabs loratadine 10 mg tablet 10 mg PO DAILY 02/06/25 omeprazole 20 mg tablet,delayed 20 mg PO DAILY PRN 02/06/25 release donepezil 10 mg tablet (Aricept) 10 mg PO DAILY #90 tabs 05/07/25 triamcinolone acetonide 0.1 % 1 applic topical BID #15 grams 05/07/25 topical cream naproxen 250 mg tablet 250 mg PO BID PRN Moderate pain 05/31/25 #25 tabs tramadol 50 mg tablet 50 mg PO TID PRN #14 tabs 05/31/25 Current Visit Medications: Current Medications Generic Name Dose Route Start Last Admin Trade Name Freq PRN Reason Stop Dose Admin Ringer's Solution 1,000 mls @ 30 mls/hr 05/31/25 06:00 IV 05/31/25 23:59 INFUSION DAMIÁN Cefazolin Sodium/Dextrose 2 gm in 50 mls @ 100 mls/hr 05/31/25 06:00 Ancef Duplex IVPB 05/31/25 23:59 PREOP DAMIÁN Tranexamic Acid/Sodium Chloride 1,000 mg in 100 mls @ 600 mls/hr 05/31/25 06:00 IVPB 05/31/25 23:59 PREOP DAMIÁN IV Miscellaneous Supplies 1 each 05/31/25 06:00 Iv Access IV 05/31/25 23:59 DIRECTED DAMIÁN Sodium Chloride 0 ml 05/31/25 06:00 Normal Saline Flush 10 Ml Syr IV 05/31/25 23:59 PRN PRN Sodium Chloride 0 ml 05/31/25 06:00 Normal Saline 10 Ml Vial IJ 05/31/25 23:59 DIRECTED PRN Sterile Water 0 ml 05/31/25 06:00 Water,Injection,Sterile 10 Ml Vial IJ 05/31/25 23:59 DIRECTED PRN PFSH Active Problems Active Problems: Problem Status Onset Code Rotator cuff arthropathy of right shoulder Acute M12.811 Small vessel disease, cerebrovascular Acute I67.9 Diverticulitis of sigmoid colon Acute ~06/2023 K57.32 Mild cognitive impairment of uncertain or unknown etiology Acute G31.84 Diplopia Acute H53.2 Sensorineural hearing loss, bilateral Acute H90.3 IBS (irritable bowel syndrome) Chronic K58.9 Diverticulitis large intestine Acute K57.32 Pancreatitis Chronic K85.90 Vestibulopathy Acute H81.90 Sensorineural hearing loss (SNHL) of left ear with unrestricted hearing of right ear Acute H90.42 Vertical diplopia Acute H53.2 Imbalance Acute R26.89 Cough Acute R05 Genital herpes Acute A60.00 Abdominal pain Acute R10.9 History of Clostridioides difficile colitis Acute Z86.19 Hypokalemia Resolved E87.6 Osteoarthritis Chronic M19.90 Other cervical disc degeneration, unspecified cervical region Acute M50.30 Vitamin D deficiency Acute E55.9 Hyperlipidemia Acute E78.5 Benign paroxysmal positional vertigo Acute H81.10 Surgical History Surgical History H/O colonoscopy (06/30/23) [facility] [place] LLQ, f/u diverticulitis History of delivery History of knee surgery History of laparoscopic cholecystectomy History of appendectomy Tobacco Smoking/Tobacco Use Status: Never Passive smoking exposure: Yes Second hand exposure: No Alcohol Alcohol Intake: current Alcohol intake frequency: 0-2 drinks per day Alcohol type: wine Substance Use Substance use: Never Substance use type: does not use Vital Signs and Lab Results Vital Signs Most Recent Vital Signs in EMR: Temp Pulse Resp BP Pulse Ox 36.6 C 70 16 135/81 100 05/31/25 06:02 05/31/25 06:02 05/31/25 06:02 05/31/25 06:02 05/31/25 06:02 Anesthesia Assessment and Plan Anesthesia History Personal History: No History of Anesthesia Complications Family History: No Family History of Anesthesia Complications Exercise Tolerance Exercise Tolerance: Metabolic Equivalents>4 Cardiac & Pulmonary Exam Cardiac Exam: Normal S1/S2 Heart Sounds Pulmonary Exam: Clear Bilateral Breath Sounds Implantable Cardiac Device Does patient have a Pacemaker or an ICD?: No Airway Exam Known Difficult Airway: No Mallampati Class: 3 Mouth Opening: Normal (> 3cm) Thyromental Distance: Less than 3 cm Neck Range of Motion: Limited ROM Neck Circumference: Normal Teeth Condition: Normal Dentition ASA Classification ASA Score: ASA 2 Emergency Case?: No NPO Status NPO Status: NPO Clears >2 hours, Solids >8 hours Anesthesia Plan Resuscitation Status: Full Code Anesthesia Technique: General Anesthesia Airway Planned: Endotracheal Tube Pain Management: Surgeon and patient request nerve block Monitors Used: Standard Monitors Preoperative Comments:: 74 yo for reverse total shoulder. Currently with runny nose and PND - states it is allergies. Sig PMHx: dyspnea (trilogy - uses 3 x/week), gerd (omeprazole), PreDM, cognitive impairment/dementia (aricept), vertigo. never smoker, occ EtOH. ECG: sinus Discussed plan of GA with ISB. Discussed risks of block failure, infection, dyspnea, and nerve injury (due to block, positioning, and surgery it self).
[2025-05-31] VITALS (31 sets, daily range): BP systolic 110–135; BP diastolic 57–81; PULSE 51–70; RESP 11–24; TEMP 36–36.8; O2SAT 96–100; BMI 23.6
[2025-05-31] MEDS: Lactated Ringers 1,000 ML 30 ML IV (06:58)
--- NOTE | 2025-05-31 07:11 | W.PM.DSUDISC ---
Date of service: 05/31/25 Discharge Plan Disposition Patient Disposition: Home Condition: Stable Discharge Details Attending Provider: Holden Carvalho Primary Care Provider: Tucker Hurtado Home Meds and New Rx's Prescriptions: New naproxen 250 mg tablet 250 mg PO BID PRN (Reason: Moderate pain) Qty: 25 0RF tramadol 50 mg tablet 50 mg PO TID PRNQty: 14 0RF Continued Ultra CoQ10 75 mg capsule 75 mg PO DAILY Trelegy Ellipta 100-62.5-25 mcg blister with device 1 inh inhalation DAILY PRN albuterol (refill) 90 mcg/actuation aerosol 90 mcg inhalation DAILY PRN (DME) blood-glucose meter Misc See Rx Instructions .ROUTE .MEDSUPPLY Qty: 1 0RF Rx Instructions: As directed to check blood glucose. No insulin. Dispense covered brand. (DME) lancets Misc See Rx Instructions .ROUTE .MEDSUPPLY Qty: 100 3RF Rx Instructions: As directed to check blood glucose daily. No insulin. Dispense covered brand. (DME) Blood Glucose Test Strip See Rx Instructions .ROUTE .MEDSUPPLY Qty: 100 3RF Rx Instructions: As directed to check blood glucose daily. No insulin. Dispense covered brand. rosuvastatin 5 mg tablet 5 mg PO DAILY Qty: 90 3RF valacyclovir 500 mg tablet 500 mg PO BID PRN (Reason: outbreaks) Qty: 20 3RF Rx Instructions: Take for three days for each outbreak omeprazole 20 mg tablet,delayed release (DR/EC) 20 mg PO DAILY PRN loratadine 10 mg tablet 10 mg PO DAILY triamcinolone acetonide 0.1 % cream 1 applic topical BID Qty: 15 0RF donepezil [Aricept] 10 mg tablet 10 mg PO DAILY Qty: 90 3RF mecobalamin (vitamin B12) [B12 Active] 1,000 mcg Tablet,Chewable 1,000 mcg PO DAILY Discharge Instructions Additional Instructions: Surgery: Right reverse total shoulder arthroplasty (retentive liner) 05/31/2025 Activity: Do not lift anything heavier than a coffee. You should keep your arm at your side in a relatively neutral position at all times except for gentle range of motion exercises, physical therapy, and essential activities. You should use the sling whenever you are out of the house. At home it is best to remove the sling and rest the arm on a pillow at your side or support the operative side with your other hand. A physical therapy prescription will be sent electronically to start in about 3 weeks. STANDARD Reverse TSA Protocol. Prescriptions: Naproxen 250 mg take 1 every 12 hours with a meal as needed for moderate pain Tramadol 50 mg take 1 every 8 hours as needed for severe pain You may use [id number] Tylenol (acetaminophen) as needed for mild pain. These pain medications may be taken all at once or in different combinations as needed. Also, recommend Colace (docusate) as a stool softener as surgery and pain medicine cause constipation. You may try [id number] diphenhydramine (Benadryl) 25-50 mg nightly as a sleep aid Dressings: Leave dressing in place until follow-up. Keep clean and dry at all times. No showers please. Follow-up: 10-[address] Carvalho You may take off the leg compression stockings this evening at home. You may also leave them on a few days longer if you have a history of leg swelling or edema. Please call the office during business hours with any questions or concerns. Let us know right away if you develop any redness, drainage, fevers, chest pain, or trouble breathing. Do not drink alcohol or drive for at least 24 hours after anesthesia. Discharge Orders Discharge Orders: Discharge Order (Routine); Ordered 05/31/25 Ordered By: Zia Cummings DS: Diagnosis Discharge Diagnosis (1) Rotator cuff arthropathy of right shoulder: Status: Acute (2) Rupture of right proximal biceps tendon: Status: Acute
--- NOTE | 2025-05-31 07:12 | W.PM.OP ---
Operative Note Operative Note PRE-OP DIAGNOSIS: Right: 1. Rotator cuff arthropathy 2. Proximal biceps rupture PROCEDURE: Right: 1. Reverse total shoulder arthroplasty, CPT # 56531 The nursing assistants teacher was medically required as this procedure involves retraction, protection of neurovascular structures, and manipulation of multiple instruments and implants at the same time, which cannot be done without a skilled nursing assistants teacher. SURGEON: Holden Carvalho RESOURCE TEACHER: Zia Cummings ANESTHESIA TYPE: Local By Surgeon, General LMA/ETT and Primary Nerve Block Refer to Anesthesia Record ESTIMATED BLOOD LOSS: 75 COMPLICATIONS: None Patient was transported to: PACU Patient's condition: stable Implants: [employer] shoulder system Small modular baseplate with 25 mm central screw 30, 15, and 15 mm peripheral locking screws 36 mm +4 mm glenosphere Small standard length stem +0 mm humeral shell and +4 mm retentive liner Indications: See medical record for details Findings: High-grade chronic supraspinatus infraspinatus rotator cuff deficiency/tearing, high-grade proximal biceps rupture with diminutive remnant in the superior bicipital groove, moderately high-grade subscapularis thinning and tearing Procedure Description: In the operating room, general anesthesia was induced. The patient was positioned beachchair on the operating room table. All bony prominences were well-padded. Preoperative antibiotics were administered. The shoulder was prepped and draped in the usual sterile fashion for shoulder arthroplasty. The correct patient, procedure, and side of the procedure were all verified prior to incision. The deltopectoral approach was preinjected with 0.25% bupivacaine containing epinephrine and taken to the anterior shoulder. Care was taken to bluntly dissect the interval between the deltoid and pectoralis major muscles and to identify the cephalic vein within its fat stripe. The vein was preserved and mobilized laterally. Subdeltoid space and conjoined tendon were freed of adhesions. Long head of the biceps tendon was diminutive majority already ruptured and not mobile so left alone in the superior aspect of the bicipital groove. The uppermost margin of the pectoralis major tendon was released from the proximal humerus. A subscapularis tenotomy was performed taking care to release the entire tendon from superior to inferior while bringing the arm gradually into external rotation. Care was taken to avoid the axillary nerve by only working on the bone inferiorly and medially. The deficient supraspinatus and infraspinatus were debrided of minimal remnant from the greater tuberosity. Appropriate coagulation was achieved especially interiorly. The anatomic neck was cut using an oscillating saw with the humeral head bone brought back table in case there was a need for future bone grafting. Attention was then turned to the glenoid and retractors were placed and a circumferential release performed removing soft tissue about the glenoid rim. Care was taken inferiorly to work on bone only between 5 and 7:00 o'clock and bluntly elevate tissues inferiorly. The glenoid was sized and guidepin inserted accounting for patient version and inclination. The guidepin was advanced just through the far cortex ensuring adequate central fixation length. The one step prep glenoid reamer was then used to prepare glenoid according to electrical installation supervisor specifications. The baseplate was impacted onto the glenoid surface. The central compression screw was placed. The central screw mold checker was used to confirm the central screw was fully seated. The locking guide was then used to drill and place appropriately lengthed inferior, anterior, and posterior screws. The [id number] reamer was used to achieve adequate peripheral reaming. The glenosphere was applied with the paving bed maker and impacted to engage the Vuong taper. It was then locked with appropriate countersinking of the setscrew. The glenosphere had good fit, appropriate positioning, and no soft tissue or bony impingement. The proximal humerus was delivered from the wound with adduction and external rotation. The humerus was sized and pin placed. Reaming and blazing were done over the pin. The stem pin punch was used through the blazer to confirm distal path and complete preparation. The final stem was impacted into place. Trialing was started with a +0 mm shell and liner. The shoulder was reduced and taken through range of motion. Trial components were built up to +4 mm liner to achieve good stability and appropriate tension on the deltoid and conjoined tendon. Trial shell and liner were removed. The final shell was impacted onto the humeral stem and final liner was clicked into place. Retentive liner was chosen due to deficient rotator cuff. The shoulder was reduced and range of motion, stability, and tension confirmed. The shoulder was copiously irrigated with Betadine and normal saline. Vancomycin powder was distributed deeply about the shoulder and through subcutaneous tissues. The deltopectoral interval was approximated with 2-0 Monocryl burying the cephalic vein. Subcutaneous tissue was irrigated then closed using 2-0 Monocryl in a buried interrupted fashion. Skin was closed using 3-0 Monocryl in a buried subcuticular fashion. Skin glue was applied to the incision. A silver impregnated bandage was placed over the incision. The extremity was placed into a shoulder immobilizer. The patient awoke from anesthesia without complication and was taken to the recovery room in stable condition. Date of Procedure: 05/31/25
--- NOTE | 2025-05-31 07:22 | PDOC.DSDIS_ITS ---
Date of service: 05/31/25 Discharge Plan Disposition Patient Disposition: Home Condition: Stable Discharge Details Attending Provider: Holden Carvalho Primary Care Provider: Tucker Hurtado Meds and New Rx's Prescriptions: New naproxen 250 mg tablet 250 mg PO BID PRN (Reason: Moderate pain) Qty: 25 0RF tramadol 50 mg tablet 50 mg PO TID PRNQty: 14 0RF Bio-K plus 50 billion cell capsule,delayed release(DR/EC) 1 cap PO DAILY 14 Days Qty: 14 0RF Continued Ultra CoQ10 75 mg capsule 75 mg PO DAILY Trelegy Ellipta 100-62.5-25 mcg blister with device 1 inh inhalation DAILY PRN albuterol (refill) 90 mcg/actuation aerosol 90 mcg inhalation DAILY PRN (DME) blood-glucose meter Misc See Rx Instructions .ROUTE .MEDSUPPLY Qty: 1 0RF Rx Instructions: As directed to check blood glucose. No insulin. Dispense covered brand. (DME) lancets Misc See Rx Instructions .ROUTE .MEDSUPPLY Qty: 100 3RF Rx Instructions: As directed to check blood glucose daily. No insulin. Dispense covered brand. (DME) Blood Glucose Test Strip See Rx Instructions .ROUTE .MEDSUPPLY Qty: 100 3RF Rx Instructions: As directed to check blood glucose daily. No insulin. Dispense covered brand. rosuvastatin 5 mg tablet 5 mg PO DAILY Qty: 90 3RF valacyclovir 500 mg tablet 500 mg PO BID PRN (Reason: outbreaks) Qty: 20 3RF Rx Instructions: Take for three days for each outbreak omeprazole 20 mg tablet,delayed release (DR/EC) 20 mg PO DAILY PRN loratadine 10 mg tablet 10 mg PO DAILY triamcinolone acetonide 0.1 % cream 1 applic topical BID Qty: 15 0RF donepezil [Aricept] 10 mg tablet 10 mg PO DAILY Qty: 90 3RF mecobalamin (vitamin B12) [B12 Active] 1,000 mcg Tablet,Chewable 1,000 mcg PO DAILY Discharge Instructions Additional Instructions: Surgery: Right reverse total shoulder arthroplasty (retentive liner) 05/31/2025 Activity: Do not lift anything heavier than a coffee. You should keep your arm at your side in a relatively neutral position at all times except for gentle range of motion exercises, physical therapy, and essential activities. You should use the sling whenever you are out of the house. At home it is best to remove the sling and rest the arm on a pillow at your side or support the opera tive side with your other hand. A physical therapy prescription will be sent electronically to start in about 3 weeks. STANDARD Reverse TSA Protocol. Prescriptions: Probiotic take 1 daily to help prevent GI issues. Obtain [id number] if prescription is not available. Naproxen 250 mg take 1 every 12 hours with a meal as needed for moderate pain Tramadol 50 mg take 1 every 8 hours as needed for severe pain You may use bnhd-[id number]-[id number] Tylenol (acetaminophen) as needed for mild pain. These pain medications may be taken all at once or in different combinations as needed. Also, recommend Colace (docusate) as a stool softener as surgery and pain medicine cause constipation. You may try nuki-btu-ytiwljh diphenhydramine (Benadryl) 25-50 mg nightly as a sleep aid Dressings: Leave dressing in place until follow-up. Keep clean and dry at all times. No showers please. Follow-up: 10-[address] Carvalho You may take off the leg compression stockings this evening at home. You may al so leave them on a few days longer if you have a history of leg swelling or edema. Please call the office during business hours with any questions or concerns. Let us know right away if you develop any redness, drainage, fevers, chest pain, or trouble breathing. Do not drink alcohol or drive for at least 24 hours after anesthesia. Stand Alone Forms: Anesthesia Discharge Inst., Royce.Nerve Block Instructions, Karla Townsend ([facility]) Referrals: Holden Carvalho MD [ [facility] STAFF PHYSICIAN, Orthopaedic Surgical] - 06/12/25 10:45 am Discharge Orders Discharge Orders: Discharge Order (Routine); Ordered 05/31/25 Ordered By: Zia Cummings DS: Diagnosis Discharge Diagnosis (1) Rotator cuff arthropathy of right shoulder: Status: Acute
--- NOTE | 2025-05-31 07:33 | W.ANESNERVE ---
Nerve Block Single Injection Procedure Date and Time Date Performed: 05/31/25 Procedure Start: 07:23 Location Where Procedure Performed Procedure Location: Day Surgery Unit Reason Performed: Postoperative Analgesia Requesting Provider: Holden Carvalho Timeout Performed Timeout Performed: No Monitoring Used ECG, Blood Pressure and SpO2 Sterility Sterility: Hand Hygiene, Surgical Cap, Surgical Mask, Sterile Gloves and Chlorhexidine Sedation Given During Procedure Sedation Given (Indicate Dose Given): Propofol IV Dose:: 20 mg Patient Mental Status Patient Mental Status: Sedate with meaningful communication Nerve Block 1st Nerve Block: Laterality: Right Block Type: Interscalene Ultrasound Image Saved?: Yes Needle / Catheter Used: 80mm SonoPlex II Local Anesthetic Bolus (Indicate Dose Given): Lidocaine used for local infiltration of skin, Bupivacaine 0.5% Dose:: 7 mL and Exparel Dose:: 10 mL Additives (Indicate Dose Given): None Ultrasound: Sterile probe cover and gel used Nerve Stimulator: Supplement to Ultrasound use and No twitch or parasthesia noted < 0.5 mA (<0.8) Paresthesia: None Procedure Tolerated: No Complications Procedure Outcome: Successful Performed By: Jose Carlos Hurst
[2025-05-31] MEDS: ceFAZolin 2 GM/50 ML BAG IVPB (07:54)
[2025-05-31] MEDS: TRANEXAMIC ACID/SOD. CHL. 1,000 MG/100 ML BAG 600 MG IVPB (07:59)
[2025-05-31] MEDS: Bupivacaine 0.25% Pres-Free W/EPI 30 ML VIAL (08:22)
[2025-05-31] MEDS: Vancomycin 1,000 MG VIAL 1000 MG (08:23)
--- NOTE | 2025-05-31 10:10 | W.ANESPOSTOP ---
Postoperative Evaluation Date, Time and Location Date Performed: 05/31/25 Time Performed: 10:11 Patient Location: PACU Vital Signs Most Recent Imported Vital Signs: Most Recent Vital Signs Temp Pulse Resp BP Pulse Ox 36.7 C 62 17 122/62 97 05/31/25 09:54 05/31/25 07:31 05/31/25 07:31 05/31/25 07:31 05/31/25 07:31 Pain Score Most Recent Pain Score: Most Recent Pain Score Pain Level 0 05/31/25 07:27 Assessment Mental Status: Arousable with meaningful communication Airway and Respiratory Function: Patent airway with normal (patient baseline) respiratory exam Cardiovascular Function: Hemodynamically Stable Hydration Status: Adequately Hydrated Nausea & Vomiting: No Nausea or Vomiting Pain: Pain is tolerable per patient (pain seems mostly T1) Peripheral Nerve Block: Regional nerve block not resolved at time of post operative discharge
[2025-05-31] MEDS: fentaNYL 100 MCG/2 ML VIAL IVP ×2 (10:13→10:32)
--- NOTE | 2025-05-31 10:32 | DI.RAD_ITS ---
Exam(s) XR SHOULDER RT COMPLETE 2+V EXAM: XR SHOULDER RT COMPLETE 2+V INDICATION: Shoulder Arthritis. COMPARISON: CR XR SHOULDER RT COMPLETE 2+V from 02/06/[address] UPPER EXTREMITY RT WO from 04/16/2025 TECHNIQUE: 2D digital imaging was performed. Two views. Portable. FINDINGS: A reverse shoulder prosthesis has been placed. The alignment appears satisfactory. There is residual postsurgical air in the soft tissues. DATA REPOSITORY: RADIATION DOSE DELIVERED:
[2025-05-31] MEDS: ceFAZolin 1 GM/50 ML BAG IVPB (11:30)
[2025-05-31] MEDS: Lactobacillus Acidophilus CAP 1 CAP PO (11:48)
== END 2025-05-31 13:14 | disposition home or self-care (01) ==
PROVIDERS: PCP Family Medicine; Visit Provider Student in an Organized Health Care Education/Training Program
PROC: (CPT 23472; principal; 2025-05-31 07:30)
DX: S46.211A Strain of muscle, fascia and tendon of other parts of biceps, right arm, initial encounter (principal); M12.811 Other specific arthropathies, not elsewhere classified, right shoulder; X58.XXXA Exposure to other specified factors, initial encounter; G89.18 Other acute postprocedural pain
CPT/HCPCS: 23472; C1713; 64415; 73030; J0131; J0665; J0666; J0690; J1100; J2405; J2704; J3010; J3373

== ENCOUNTER 2025-06-12 11:02 | Outpatient (CLI) | payer MEDICARE, SELFPAY ==
--- NOTE | 2025-06-12 10:45 | DI.RAD_ITS ---
Exam(s) XR SHOULDER RT COMPLETE 2+V EXAM: XR SHOULDER RT COMPLETE 2+V CLINICAL HISTORY: F/U RIGHT RTSA. TECHNIQUE: 2D digital imaging was performed. Two images were obtained. Grashey and Y views were obtained. COMPARISON: CR XR SHOULDER RT COMPLETE 2+V from 05/31/2025 FINDINGS: BONES: There are stable post operative changes of a right reverse total shoulder arthroplasty present. No fracture or dislocation. JOINTS: The orthopedic hardware is in good position. No evidence of hardware loosening. There are degenerative changes seen at the acromioclavicular joint. SOFT TISSUE: Normal. IMPRESSION: Stable right total reverse shoulder replacement. DATA REPOSITORY: RADIATION DOSE DELIVERED:
== END 2025-06-12 11:03 | disposition home or self-care (01) ==
LOC: DIORS 11:02
PROVIDERS: PCP Family Medicine; Referring Provider Family Medicine; Visit Provider Student in an Organized Health Care Education/Training Program
DX: Z47.1 Aftercare following joint replacement surgery (principal); M12.811 Other specific arthropathies, not elsewhere classified, right shoulder; S46.211D Strain of muscle, fascia and tendon of other parts of biceps, right arm, subsequent encounter; X58.XXXD Exposure to other specified factors, subsequent encounter
CPT/HCPCS: 99024; 73030

== ENCOUNTER 2025-07-17 10:30 | Outpatient (CLI) | payer MEDICARE, SELFPAY ==
[2025-07-17 12:27] LABS: ALT 33 U/L (14-59); AST 20 U/L (15-37); Albumin 3.5 g/dL (3.4-5.0); Alkaline Phosphatase 84 U/L (46-116); Anion Gap 6.8 mmol/L (3-11); BUN 12 mg/dL (7-18); Bilirubin, Total 0.8 mg/dL (0.2-1.0); CO2 29.2 mmol/L (21.0-32.0); Calcium 9.0 mg/dL (8.5-10.1); Calculated LDL 53 mg/dL (<100); Chloride 105 mmol/L (98-107); Cholesterol 132 mg/dL (<200); Estimated GFR 76.31 (mL/min/1.73m2); Glucose 108 mg/dL (74-106); HDL Cholesterol 63 mg/dL (>or=50); Potassium 4.3 mmol/L (3.5-5.1); Sodium 141 mmol/L (136-145); Total Protein 6.9 g/dL (6.4-8.2); Triglyceride 83 mg/dL (<150)
== END 2025-07-17 10:31 | disposition home or self-care (01) ==
LOC: LBO 10:30
PROVIDERS: PCP Family Medicine; Visit Provider Family Medicine
DX: E78.5 Hyperlipidemia, unspecified (principal)
CPT/HCPCS: 36415; 80053; 80061

== ENCOUNTER 2025-08-07 13:46 | Outpatient (CLI) | payer MEDICARE, SELFPAY ==
--- NOTE | 2025-08-07 11:30 | DI.RAD_ITS ---
Exam(s) XR SHOULDER RT COMPLETE 2+V EXAM: XR SHOULDER RT COMPLETE 2+V INDICATION: pain. COMPARISON: CR XR SHOULDER RT COMPLETE 2+V from 06/12/2025 TECHNIQUE: 2D digital imaging was performed. Two views. FINDINGS: There has been no change in the alignment of the reverse shoulder prosthesis. There are no abnormal bony lucencies. DATA REPOSITORY: RADIATION DOSE DELIVERED:
== END 2025-08-07 13:47 | disposition home or self-care (01) ==
LOC: DIORS 13:47
PROVIDERS: PCP Family Medicine; Referring Provider Family Medicine; Visit Provider Student in an Organized Health Care Education/Training Program
DX: Z47.1 Aftercare following joint replacement surgery (principal); Z96.611 Presence of right artificial shoulder joint; M12.811 Other specific arthropathies, not elsewhere classified, right shoulder
CPT/HCPCS: 99024; 73030